=== PATIENT | male | born 1940 | race Caucasian/White ===

== ENCOUNTER 2023-04-17 23:45 | Outpatient (RCR) | payer MEDICARE, SELFPAY | END 2023-05-13 23:59 | disposition home or self-care (01) | LOC: MM 23:45 | PROVIDERS: PCP Nurse Practitioner; Visit Provider Internal Medicine | DX: Z51.81 Encounter for therapeutic drug level monitoring (principal); Z79.01 Long term (current) use of anticoagulants; I48.91 Unspecified atrial fibrillation ==

== ENCOUNTER 2023-05-19 10:54 | Outpatient (RCR) | payer MEDICARE, SELFPAY | END 2023-06-13 16:57 | disposition home or self-care (01) | LOC: MM 10:54 | PROVIDERS: PCP Internal Medicine; Visit Provider Internal Medicine | DX: Z51.81 Encounter for therapeutic drug level monitoring (principal); Z79.01 Long term (current) use of anticoagulants; I48.91 Unspecified atrial fibrillation ==

== ENCOUNTER 2023-06-14 09:18 | Outpatient (RCR) | payer MEDICARE, SELFPAY | END 2023-07-14 17:32 | disposition home or self-care (01) | LOC: MM 09:18 | PROVIDERS: Visit Provider Internal Medicine | DX: Z51.81 Encounter for therapeutic drug level monitoring (principal); Z79.01 Long term (current) use of anticoagulants; I48.91 Unspecified atrial fibrillation ==

== ENCOUNTER 2023-07-15 10:19 | Outpatient (RCR) | payer MEDICARE, SELFPAY | END 2023-08-12 16:50 | disposition home or self-care (01) | LOC: MM 10:19 | PROVIDERS: Visit Provider Internal Medicine | DX: Z51.81 Encounter for therapeutic drug level monitoring (principal); Z79.01 Long term (current) use of anticoagulants; I48.91 Unspecified atrial fibrillation ==

== ENCOUNTER 2023-07-28 16:50 | Outpatient (OUT) | payer MEDICARE, SELFPAY ==
[2023-07-28 17:10] LABS: Basophils Percent Auto 0.6 % (0.2-2.0); Eosinophils Absolute Auto 0.3 10^3/uL (0.0-0.7); Eosinophils Percent Auto 3.7 % (0.9-7.0); Hematocrit 45.1 % (42.0-54.0); Hemoglobin 14.2 g/dL (14.0-18.0); Immature Granulocytes Abs Auto 0.03 10^3/uL (0.00-0.03); Immature Granulocytes Pct Auto 0.4 % (0.0-0.5); Lymphocytes Absolute Auto 2.2 10^3/uL (1.2-3.8); Mean Corpuscular HGB Conc 31.5 g/dL (29.9-35.2); Mean Corpuscular Hemoglobin 28.9 pg (25.9-34.0); Mean Corpuscular Volume 91.9 fL (80.0-94.0); Mean Platelet Volume 8.4 fL (9.5-13.5); Monocytes Absolute Auto 0.7 10^3/uL (0.3-0.8); Monocytes Percent Auto 9.6 % (1.7-12.0); Neutrophils Percent Auto 54.7 % (43.0-75.0); Platelet Count 272 10^3/uL (150-450); Red Blood Count 4.91 10^6/uL (4.70-6.10); White Blood Count 7.2 10^3/uL (4.0-11.0)
[2023-07-28 17:23] LABS: Estimated Average Glucose 174 mg/dL; Glycohemoglobin A1C 7.7 % (4.5-6.2)
[2023-07-28 17:24] LABS: Alanine Aminotransferase 21 U/L (16-63); Albumin Globulin Ratio 0.7; Albumin Level 3.4 g/dL (3.4-5.0); Alkaline Phosphatase 97 U/L (46-116); Anion Gap 12.6; Aspartate Amino Transferase 16 U/L (15-37); BUN Creatinine Ratio 18.1; Bilirubin Total 0.3 mg/dL (0.2-1.0); Calcium 9.7 mg/dL (8.5-10.1); Carbon Dioxide 27.8 mmol/L (21.0-32.0); Chloride 99 mmol/L (98-107); Chol HDL Ratio 4.4; Cholesterol 248 mg/dL (<=200); Estimated GFR (African America 52 (>=60); Estimated GFR (Non-African Ame 43 (>=60); Glucose 166 mg/dL (74-106); HDL Cholesterol 57 mg/dL (40-60); Potassium 4.4 mmol/L (3.5-5.1); Sodium 135 mmol/L (136-145); Total Protein 8.4 g/dL (6.4-8.2); Triglycerides 260 mg/dL (<=150)
[2023-07-28 18:28] LABS: Bilirubin Urine NEGATIVE (NEGATIVE); Blood Urine SMALL (NEGATIVE); Clarity Urine CLEAR (CLEAR); Color Urine LT. YELLOW (YELLOW); Glucose Urine UA >=1000 mg/dL (NEGATIVE); Ketones Urine NEGATIVE (NEGATIVE); Leukocyte Esterase Urine MODERATE (NEGATIVE); Nitrite Urine NEGATIVE (NEGATIVE); Protein Urine NEGATIVE (NEG/TRACE); Urobilinogen Urine 0.2 EU/dL (0.2-1.0); pH Urine 7.5 (5.0-9.0)
[2023-07-28 18:36] LABS: Microalbumin Urine Random 2.2 mg/dL (<=30.0)
[2023-07-28 18:39] LABS: Bacteria Urine SMALL #/HPF (NONE SEEN); Mucus Urine NONE SEEN (NONE SEEN); Squamous Epithelial Cell Urine NONE SEEN #/LPF (NONE/RARE)
[2023-07-28 18:40] LABS: Cast Seen? NONE SEEN #/LPF (NONE SEEN); Crystals Seen? None Seen #/HPF (None Seen)
== END 2023-07-28 16:51 | disposition home or self-care (01) ==
PROVIDERS: Visit Provider Nurse Practitioner
DX: D64.9 Anemia, unspecified (principal); I10 Essential (primary) hypertension; E11.65 Type 2 diabetes mellitus with hyperglycemia
CPT/HCPCS: 36415; 80053; 80061; 81001; 82043; 83036; 85025

== ENCOUNTER 2023-08-15 01:50 | Outpatient (RCR) | payer MEDICARE, SELFPAY | END 2023-09-13 17:23 | disposition home or self-care (01) | LOC: MM 01:50 | PROVIDERS: Visit Provider Internal Medicine | DX: Z51.81 Encounter for therapeutic drug level monitoring (principal); Z79.01 Long term (current) use of anticoagulants; I48.91 Unspecified atrial fibrillation ==

== ENCOUNTER 2023-08-23 15:39 | Outpatient (OUT) | payer MEDICARE, SELFPAY ==
--- NOTE | 2023-08-23 | XR_ITS ---
The [address] [address] Patient Name: CATERINA FINK MRN: [id number] date: 1940 Sex: M Assigned Patient Location: [facility] Current Patient Location: RAD Accession/Order Number: [id number] Exam Date: 08/23/2023 15:15 Report Date: 08/23/2023 15:58 At the request of: CONCEPCION RIVERA Procedure: XR ankle LT min 3V STUDY: XR ankle LT min 3V, XR foot LT min 3V, [id number], [id number] HISTORY: LEFT ANKLE INJURY COMPARISON: None FINDINGS: No acute fracture or dislocation. Chronic appearing curvilinear calcification along the medial malleolus. Moderate soft tissue swelling over the dorsum of the foot. Extensive vascular calcifications are present. Diffuse heterogeneity of the foot and ankle. XR/XR ankle LT min 3V IMPRESSION: 1. No acute osseous abnormality. 2. Osseous heterogeneity of the bones of the foot and ankle. Differential includes renal osteodystrophy, disuse osteopenia, multiple myeloma, and metastatic disease. Correlate with patient history. Electronically authenticated by: DINORAH ECHOLS Date: 08/23/2023 15:58
--- NOTE | 2023-08-23 | XR_ITS ---
The [address] [address] Patient Name: CATERINA FINK MRN: [id number] date: 1940 Sex: M Assigned Patient Location: [facility] Current Patient Location: RAD Accession/Order Number: [id number] Exam Date: 08/23/2023 15:15 Report Date: 08/23/2023 15:58 At the request of: CONCEPCION RIVERA Procedure: XR foot LT min 3V STUDY: XR ankle LT min 3V, XR foot LT min 3V, [id number], [id number] HISTORY: LEFT ANKLE INJURY COMPARISON: None FINDINGS: No acute fracture or dislocation. Chronic appearing curvilinear calcification along the medial malleolus. Moderate soft tissue swelling over the dorsum of the foot. Extensive vascular calcifications are present. Diffuse heterogeneity of the foot and ankle. XR/XR foot LT min 3V IMPRESSION: 1. No acute osseous abnormality. 2. Osseous heterogeneity of the bones of the foot and ankle. Differential includes renal osteodystrophy, disuse osteopenia, multiple myeloma, and metastatic disease. Correlate with patient history. Electronically authenticated by: DINORAH ECHOLS Date: 08/23/2023 15:58
== END 2023-08-23 15:40 | disposition home or self-care (01) ==
LOC: RAD 15:39
PROVIDERS: Visit Provider Physician Assistant
DX: M79.672 Pain in left foot (principal); S99.912A Unspecified injury of left ankle, initial encounter
CPT/HCPCS: 73610; 73630

== ENCOUNTER 2023-09-14 00:39 | Outpatient (RCR) | payer MEDICARE, SELFPAY | END 2023-10-13 16:40 | disposition home or self-care (01) | LOC: MM 00:39 | PROVIDERS: Visit Provider Internal Medicine | DX: Z51.81 Encounter for therapeutic drug level monitoring (principal); Z79.01 Long term (current) use of anticoagulants; I48.91 Unspecified atrial fibrillation ==

== ENCOUNTER 2023-09-15 14:07 | Outpatient (OUT) | payer MEDICARE, SELFPAY ==
--- NOTE | 2023-09-15 | XR_ITS ---
The [address] [address] Patient Name: CATERINA FINK MRN: [id number] date: 1940 Sex: M Assigned Patient Location: Current Patient Location: Accession/Order Number: [id number] Exam Date: 09/15/2023 14:39 Report Date: 09/16/2023 07:55 At the request of: CONCEPCION RIVERA Procedure: XR foot LT min 3V PROCEDURE: XR ankle LT min 3V, XR foot LT min 3V COMPARISON: 08/23/2023 HISTORY: LEFT ANKLE PAIN FINDINGS: BONES:No acute fracture or dislocation. Diffuse permeative pattern identified throughout the ankle with subchondral lytic changes cortical thinning and osteopenia stable mild to moderate degenerative changes most significant at the first metatarsal-phalangeal joint SOFT TISSUES:Diffuse soft tissue swelling. Extensive vascular calcifications EFFUSION:None visible. OTHER: Negative. XR/XR foot LT min 3V IMPRESSION: Progression of diffuse lytic changes, consider osteopenia and/or neuropathic osteoarthropathy Electronically authenticated by: FLORIDALMA WRIGHT Date: 09/16/2023 07:55
--- NOTE | 2023-09-15 | XR_ITS ---
The [address] [address] Patient Name: CATERINA FINK MRN: [id number] date: 1940 Sex: M Assigned Patient Location: Current Patient Location: Accession/Order Number: [id number] Exam Date: 09/15/2023 14:39 Report Date: 09/16/2023 07:55 At the request of: CONCEPCION RIVERA Procedure: XR ankle LT min 3V PROCEDURE: XR ankle LT min 3V, XR foot LT min 3V COMPARISON: 08/23/2023 HISTORY: LEFT ANKLE PAIN FINDINGS: BONES:No acute fracture or dislocation. Diffuse permeative pattern identified throughout the ankle with subchondral lytic changes cortical thinning and osteopenia stable mild to moderate degenerative changes most significant at the first metatarsal-phalangeal joint SOFT TISSUES:Diffuse soft tissue swelling. Extensive vascular calcifications EFFUSION:None visible. OTHER: Negative. XR/XR ankle LT min 3V IMPRESSION: Progression of diffuse lytic changes, consider osteopenia and/or neuropathic osteoarthropathy Electronically authenticated by: FLORIDALMA WRIGHT Date: 09/16/2023 07:55
== END 2023-09-15 14:08 | disposition home or self-care (01) ==
LOC: WC 14:07
PROVIDERS: Visit Provider Physician Assistant
DX: M14.672 Charcot's joint, left ankle and foot (principal)
CPT/HCPCS: 73610; 73630

== ENCOUNTER 2023-09-20 13:24 | Outpatient (OUT) | payer MEDICARE, SELFPAY ==
--- NOTE | 2023-09-20 13:28 | CT_ITS ---
The [address] [address] Patient Name: CATERINA FINK MRN: [id number] date: 1940 Sex: M Assigned Patient Location: CT Current Patient Location: CT Accession/Order Number: [id number] Exam Date: 09/20/2023 13:37 Report Date: 09/20/2023 14:49 At the request of: CONCEPCION RIVERA Procedure: CT ankle LT wo con EXAMINATION: CT ankle LT wo con HISTORY: Medial Malleolus Fracture COMPARISON: Plain x-ray 09/15/2023 TECHNIQUE: Triplanar images FINDINGS: BONES: Transverse fracture of the lateral malleolus, minimally displaced with no angulation. No evidence of bone formation or bony bridging. No additional fracture or dislocation. Extensive permeative pattern of the bones consistent with osteopenia. SOFT TISSUES: Stents of soft tissue swelling. Vascular calcifications. EFFUSION: None visible. OTHER: Negative. CT/CT ankle LT wo con IMPRESSION: Acute transverse fracture lateral malleolus Electronically authenticated by: FLORIDALMA WRIGHT Date: 09/20/2023 14:49
== END 2023-09-20 13:25 | disposition home or self-care (01) ==
LOC: CT 13:24
PROVIDERS: Visit Provider Physician Assistant
DX: S82.52XA Displaced fracture of medial malleolus of left tibia, initial encounter for closed fracture (principal)
CPT/HCPCS: 73700

== ENCOUNTER 2023-10-13 14:59 | Outpatient (OUT) | payer MEDICARE, SELFPAY ==
--- NOTE | 2023-10-13 | XR_ITS ---
The [address] [address] Patient Name: CATERINA FINK MRN: [id number] date: 1940 Sex: M Assigned Patient Location: [facility] Current Patient Location: [facility] Accession/Order Number: [id number] Exam Date: 10/13/2023 15:30 Report Date: 10/14/2023 08:36 At the request of: CONCEPCION RIVERA Procedure: XR ankle LT min 3V CLINICAL HISTORY: LEFT ANKLE PAIN. EXAMINATION: Left ankle: 10/13/2023. COMPARISON: Left ankle: 09/15/2023. FINDINGS: 3 views are provided which demonstrate the ankle mortise is normally aligned. There are no acute fractures or dislocations. Base of the fifth metatarsal appears intact however there are cystic-appearing lucencies involving the distal tibia, fibula, as well as talus and multiple other tarsal bones. There is no osteolysis. There is some soft tissue swelling. No abnormal calcifications or radiopaque foreign bodies are seen. There is no soft tissue gas. There are vascular calcifications. XR/XR ankle LT min 3V IMPRESSION: 1. No definite fractures or dislocations. 2. Soft tissue swelling but no soft tissue gas. 3. No osteolysis to suggest plain film evidence of osteomyelitis however there are cystic lesions involving the distal tibia, fibula, and multiple tarsal, at least proximal metatarsal bones probably due to underlying neuropathy or degenerative changes. If patient's symptoms persist and there is clinical concern for underlying infectious pathology further evaluation with MRI might be of value. Electronically authenticated by: ART ACEVEDO Date: 10/14/2023 08:36
== END 2023-10-13 15:00 | disposition home or self-care (01) ==
LOC: RAD 14:59
PROVIDERS: Visit Provider Physician Assistant
DX: S82.892A Other fracture of left lower leg, initial encounter for closed fracture (principal)
CPT/HCPCS: 73610

== ENCOUNTER 2023-10-14 09:53 | Outpatient (RCR) | payer MEDICARE, SELFPAY | END 2023-11-11 15:39 | disposition home or self-care (01) | LOC: MM 09:53 | PROVIDERS: Visit Provider Internal Medicine | DX: Z51.81 Encounter for therapeutic drug level monitoring (principal); Z79.01 Long term (current) use of anticoagulants; I48.91 Unspecified atrial fibrillation ==

== ENCOUNTER 2023-11-02 16:11 | Outpatient (OUT) | payer MEDICARE, SELFPAY ==
--- NOTE | 2023-11-02 | XR_ITS ---
The [address] [address] Patient Name: CATERINA FINK MRN: [id number] date: 1940 Sex: M Assigned Patient Location: [facility] Current Patient Location: [facility] Accession/Order Number: [id number] Exam Date: 11/02/2023 15:15 Report Date: 11/02/2023 16:06 At the request of: ANGELY DAWN Procedure: XR ankle LT min 3V IMAGES REVIEWED: XR ankle LT min 3V COMPARISON: 09/20/2023, 10/13/2023. CLINICAL INDICATION: LEFT ANKLE PAIN FINDINGS/IMPRESSION: On the prior CT left ankle from 09/20/2023 there was an acute transverse fracture of the lateral malleolus of the left ankle. Subacute nondisplaced obliquely oriented fracture line can be seen on prior oblique view from 10/13/2023. Less conspicuous on today's exam suggesting interval healing. No radiographic evidence of new acute osseous abnormality of the left ankle. Patient is severely osteopenic (possibly explaining the cystic lesions noted on the prior x-ray left ankle report from 10/13/2023). No evidence of osteomyelitis. No evidence of significant neuropathic or degenerative change. Moderate diffuse soft tissue swelling. Peripheral arterial disease. Electronically authenticated by: THERESA ADAMSON Date: 11/02/2023 16:06
--- OUTSIDE RECORDS SUMMARY | 2023-11-03 10:08 | XMS_ITS | CCD ---
Author Name Unknown Address [address] [place] [address] Organization [facility] Care Team Providers Care Restaurant District Manager Name Role Phone BENEDICT KENNEYA Jono Referring Unavailable AICHHOLZ, ROSCOE JDejuan Referring Unavailable AICHHOLZ, ARCHIVIST ROSCOE Primary Care Unavailable FAWWAD, ROGERS H Attending Unavailable FAWWAD, ROGERS H Admitting Unavailable AICHHOLZ, ARCHIVIST ROSCOE Primary Care Unavailable FAWWAD, ROGERS H Attending Unavailable FAWWAD, ROGERS H Admitting Unavailable AICHHOLZ, ARCHIVIST ROSCOE Primary Care Unavailable FAWWAD, ROGERS H Attending Unavailable FAWWAD, ROGERS H Admitting Unavailable AICHHOLZ, ARCHIVIST ROSCOE Primary Care Unavailable AICHHOLZ, ARCHIVIST ROSCOE Admitting Unavailable AICHHOLZ, ARCHIVIST ROSCOE Attending Unavailable AICHHOLZ, ARCHIVIST ROSCOE Primary Care Unavailable NADEREDR NAOMI Kerr Consulting Unavailable NADERER, DR NAOMI Stafford Attending Unavailable DR NAOMI DOSDON Admitting Unavailable AICHHOLZ, ARCHIVIST ROSCOE Primary Care Unavailable AICHHOLZ, ARCHIVIST ROSCOE Admitting Unavailable AICHHOLZ, ARCHIVIST ROSCOE Consulting Unavailable AICHHOLZ, ARCHIVIST ROSCOE Attending Unavailable AICHHOLZ, ARCHIVIST ROSCOE Primary Care Unavailable FAWWAD, ROGERS H Attending Unavailable FAWWAD, ROGERS H Admitting Unavailable AICHHOLZ, ARCHIVIST ROSCOE Primary Care Unavailable FAWWAD, ROGERS H Attending Unavailable FAWWAD, ROGERS H Admitting Unavailable AICHHOLZ, ARCHIVIST ROSCOE Primary Care Unavailable FAWWAD, ROGERS H Attending Unavailable FAWWAD, ROGERS H Admitting Unavailable FAWWAD, ROGERS H Attending Unavailable AICHHOLZ, ARCHIVIST ROSCOE Primary Care Unavailable FAWWAD, ROGERS H Admitting Unavailable AICHHOLZ, ARCHIVIST ROSCOE Primary Care Unavailable FAWWAD, ROGERS H Attending Unavailable FAWWAD, ROGERS H Admitting Unavailable AICHHOLZ, ARCHIVIST ROSCOE Primary Care Unavailable FAWWAD, ROGERS H Attending Unavailable FAWWAD, ROGERS H Admitting Unavailable FAWWAD, ROGERS H Admitting Unavailable AICHHOLZ, ARCHIVIST ROSCOE Primary Care Unavailable FAWWAD, ROGERS H Attending Unavailable FAWWAD, ROGERS H Admitting Unavailable FAWWAD, ROGERS H Attending Unavailable AICHHOLZ, ARCHIVIST ROSCOE Primary Care Unavailable AICHHOLZ, ARCHIVIST ROSCOE Primary Care Unavailable BANDAR ., GENEVIEVE Consulting Unavailable BANDAR ., GENEVIEVE Attending Unavailable BANDAR ., GENEVIEVE Admitting Unavailable GABRIELLA PULIDO Consulting Unavailable AICHHOLZ, ARCHIVIST ROSCOE Primary Care Unavailable AICHHOLZ, ARCHIVIST ROSCOE Consulting Unavailable AICHHOLZ, ARCHIVIST ROSCOE Attending Unavailable AICHHOLZ, ARCHIVIST ROSCOE Admitting Unavailable AICHHOLZ, ARCHIVIST ROSCOE Primary Care Unavailable AICHHOLZ, ARCHIVIST ROSCOE Consulting Unavailable AICHHOLZ, ARCHIVIST ROSCOE Attending Unavailable AICHHOLZ, ARCHIVIST ROSCOE Admitting Unavailable Problems Active Problems Problem Classification Problem Date Documented Date Episodic/Chronic Cardiac dysrhythmias (9 sources) Paroxysmal atrial fibrillation; Translations: [Unspecified atrial fibrillation] Onset: 2 Chronic Diabetes mellitus without complication (4 sources) Type 2 diabetes mellitus without complications; Translations: [TYPE 2 DM WITHOUT COMPLICATIONS] Onset: 3 Chronic Disorders of lipid metabolism (1 source) Pure hypercholesterolemia, unspecified; Translations: [PURE HYPERCHOLESTEROLEMIA UNSPEC] Onset: 3 Chronic Esophageal disorders (1 source) Gastro-esophageal reflux disease without esophagitis; Translations: [GERD WITHOUT ESOPHAGITIS] Onset: 3 Chronic Essential hypertension (1 source) Essential (primary) hypertension; Translations: [ESSENTIAL PRIMARY HYPERTENSION] Onset: 3 Chronic Genitourinary symptoms and ill-defined conditions (4 sources) Encounter for fitting and adjustment of urinary device; Translations: [END FITTING AND ADJUST URINARY DEVICE] Onset: 3 Chronic Hyperplasia of prostate (1 source) Benign prostatic hyperplasia without lower urinary tract symptoms; Translations: [BENIGN PROSTATIC HYPRPLASIA WO LUTS] Onset: 3 Chronic Other aftercare (5 sources) Encounter for therapeutic drug level monitoring; Translations: [ENC THERAPEUTC DRUG LEVL MONITORING] Onset: 3 Episodic Other aftercare (1 source) snf (current) use of anticoagulants; Translations: [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 USE ANTICOAGULANTS] Onset: 3 Episodic Past or Other Problems Problem Classification Problem Date Documented Da te Episodic/Chronic Other aftercare (1 source) Other emt intermediate (current) drug therapy; Translations: [OTH ASSISTED CURRENT DRUG THERAPY] Onset: 12-06-2022 Episodic Other aftercare (1 source) snf (current) use of oral hypoglycemic drugs; Translations: [ASSISTED USE ORAL HYPOGLYCEMIC DX] Onset: 12-06-2022 Episodic Other lower respiratory disease (1 source) Personal history of pneumonia (recurrent); Translations: [PERSONAL HX OF PNEUMONIA RECURRENT] Onset: 12-06-2022 Episodic Phlebitis; thrombophlebitis and thromboembolism (1 source) Personal history of other venous thrombosis and embolism; Translations: [PERS HX OTH VENOUS THROMBOSIS AND EMBO] Onset: 12-06-2022 Episodic Urinary tract infections (4 sources) Urinary tract infection, site not specified; Translations: [UTI SITE NOT SPECIFIED] Onset: 06-10-2022 Episodic Results Test Name Value Interpretation Reference Range Facil ity GLYCOHEMOGLOBIN A1Con 2022 ADA RECOMMENDATION SEE BELOW Normal [facility] Comment on above: Result Comment: ADA RECOMMENDED LIMIT 4.0 - 6.0 ADA THERAPEUTIC TARGET < 7.0 ACTION SUGGESTED > 7.0 Performed By: #### A 1C #### [facility] [address] [place] [address] Dr. Javi Flynn Glucose [Mass/Vol] 275 mg/dL Normal [facility] Comment on above: Performed By: #### A 1C #### [facility] [address] [place] [address] Dr. Javi Flynn HbA1c (Bld) [Mass fraction] 11.2 % Critically high 4.5-6.2 [facility] Comment on above: Performed By: #### A 1C #### [facility] [address] [place] [address] Dr. Javi Flynn PROF CHEM 8 (BAS METB)on Anion gap [Moles/Vol] 13.8 mmol/L Normal [facility] Comment on above: Performed By: #### B MP #### [facility] [address] [address] [address] Javi Flynn Calcium [Mass/Vol] 8.8 mg/dL Normal 8.5-10.1 [facility] Comment on above: Performed By: #### B MP #### [facility] [address] [address] [address] Javi Flynn Chloride [Moles/Vol] 102 mmol/L Normal 98-107 [facility] Comment on above: Performed By: #### B MP #### [facility] [address] [address] [address] Javi Flynn CO2 [Moles/Vol] 26.6 mmol/L Normal 21.0-32.0 [facility] Comment on above: Performed By: #### B MP #### [facility] [address] [address] [address] Javi Flynn Creatinine [Mass/Vol] 1.50 mg/dL Critically high 0.70-1.30 [facility] Comment on above: Performed By: #### B MP #### [facility] [address] [address] [address] Javi Flynn EGFR-AF CZECH 54 mL/min/1.73m2 Critically low >=60 [facility] Comment on above: Performed By: #### B MP #### [facility] [address] [address] [address] Javi Flynn EGFR-NON AF CZECH 45 mL/min/1.73m2 Critically low >=60 [facility] Comment on above: Performed By: #### B MP #### [facility] [address] [address] [address] Javi Flynn Glucose [Mass/Vol] 349 mg/dL Critically high 74-106 [facility] Comment on above: Performed By: #### B MP #### [facility] [address] [address] [address] Javi Flynn Potassium [Moles/Vol] 4.4 mmol/L Normal 3.5-5.1 [facility] Comment on above: Performed By: #### B MP #### [facility] [address] [address] [address] Javi Flynn Sodium [Moles/Vol] 138 mmol/L Normal 136-145 [facility] Comment on above: Performed By: #### B MP #### [facility] [address] [address] [address] Javi Flynn Urea nitrogen [Mass/Vol] 22.0 mg/dL Critically high 7.0-18.0 [facility] Comment on above: Performed By: #### B MP #### [facility] [address] [place] [address] Dr. Javi Flynn Urea nitrogen/Creatinine [Mass ratio] 14.7 mg/mg Normal [facility] Comment on above: Performed By: #### B MP #### [facility] [address] [place] [address] Dr. Javi Flynn PROTIMEon 03-02-2023 INR Coag (PPP) [Relative time] 2.94 {INR} Normal [facility] Comment on above: Performed By: #### P T #### [facility] [address] [place] [address] Dr. Javi Flynn INR GUIDELINES SEE BELOW Normal The [facility] Comment on above: Result Comment: EDDIE RED INR: 2.0 - 3.0 CONDITIONS NOT LISTED BELOW 2.5 - 3.5 FOR PROSTHETIC HEART VALVE REPLACEMENT 2.5 - 3.5 RECURRENT THROMBOSIS Performed By: #### P T #### [facility] [address] [place] [address] Dr. Javi Flynn PT Coag (PPP) [Time] 29.3 s Critically high 9.0-11.6 [facility] Comment on above: Performed By: #### P T #### [facility] [address] [place] [address] Dr. Javi Flynn CBC AUTO DIFFon 09-20-2022 BASO # 0.1 103/ul Normal 0.0-0.1 [facility] Comment on above: Performed By: #### C BC #### [facility] [address] [address] [address] Javi Flynn Basophils/100 WBC (Bld) 0.8 % Normal 0.2-2.0 [facility] Comment on above: Performed By: #### C BC #### [facility] [address] [address] [address] Javi Flynn EO # 0.2 103/ul Normal 0.0-0.7 [facility] Comment on above: Performed By: #### C BC #### [facility] [address] [place] [address] Dr. Javi Flynn Eosinophils/100 WBC (Bld) 2.9 % Normal 0.9-7.0 [facility] Comment on above: Performed By: #### C BC #### [facility] [address] [place] [address] Dr. Javi Flynn Erythrocyte distribution width (RBC) [Ratio] 13.6 % Normal 11.0-15.0 [facility] Comment on above: Performed By: #### C BC #### [facility] [address] [place] [address] Dr. Javi Flynn Hematocrit (Bld) [Volume fraction] 40.0 % Critically low 42.0-54.0 [facility] Comment on above: Performed By: #### C BC #### [facility] [address] [place] [address] Dr. Javi Flynn Hemoglobin (Bld) [Mass/Vol] 13.1 g/dL Critically low 14.0-18.0 [facility] Comment on above: Performed By: #### C BC #### [facility] [address] [place] [address] Dr. Javi Flynn IG # 0.03 10e3/ul Normal 0.00-0.03 [facility] Comment on above: Performed By: #### C BC #### [facility] [address] [place] [address] Dr. Javi Flynn IG % 0.5 % Normal 0.0-0.5 [facility] Comment on above: Performed By: #### C BC #### [facility] [address] [place] [address] Dr. Javi Flynn LYMPH # 2.1 103/ul Normal 1.2-3.8 [facility] Comment on above: Performed By: #### C BC #### [facility] [address] [place] [address] Dr. Javi Flynn Lymphocytes/100 WBC (Bld) 32.0 % Normal 20.5-60.0 [facility] Comment on above: Performed By: #### C BC #### [facility] [address] [place] [address] Dr. Javi Flynn MANUAL DIFF REQ NO Normal [facility] Comment on above: Performed By: #### C BC #### [facility] [address] [place] [address] Dr. Javi Flynn MCH (RBC) [Entitic mass] 28.1 pg Normal 25.9-34.0 [facility] Comment on above: Performed By: #### C BC #### [facility] [address] [place] [address] Dr. Javi Flynn MCHC (RBC) [Mass/Vol] 32.8 g/dL Normal 29.9-35.2 [facility] Comment on above: Performed By: #### C BC #### [facility] [address] [place] [address] Dr. Javi Flynn MCV (RBC) [Entitic vol] 85.8 fL Normal 80.0-94.0 [facility] Comment on above: Performed By: #### C BC #### [facility] [address] [place] [address] Dr. Javi Flynn MONO # 0.6 103/ul Normal 0.3-0.8 [facility] Comment on above: Performed By: #### C BC #### [facility] [address] [place] [address] Dr. Javi Flynn Monocytes/100 WBC (Bld) 8.7 % Normal 1.7-12.0 [facility] Comment on above: Performed By: #### C BC #### [facility] [address] [address] [address] Javi Flynn NEUT # 3.7 103/ul Normal 1.4-6.5 [facility] Comment on above: Performed By: #### C BC #### [facility] [address] [address] [address] Javi Flynn Neutrophils/100 WBC (Bld) 55.1 % Normal 43.0-75.0 [facility] Comment on above: Performed By: #### C BC #### [facility] [address] [address] [address] Javi Flynn Platelet mean volume (Bld) [Entitic vol] 9.4 fL Critically low 9.5-13.5 [facility] Comment on above: Performed By: #### C BC #### [facility] [address] [place] [address] Dr. Javi Flynn PLT 268 103/ul Normal 150-450 [facility] Comment on above: Performed By: #### C BC #### [facility] [address] [place] [address] Dr. Javi Flynn RBC 4.66 106/ul Critically low 4.70-6.10 [facility] Comment on above: Performed By: #### C BC #### [facility] [address] [place] [address] Dr. Javi Flynn WBC 6.7 103/ul Normal 4.0-11.0 [facility] Comment on above: Performed By: #### C BC #### [facility] [address] [place] [address] Dr. Javi Flynn GLYCOHEMOGLOBIN A1Con 2021 ADA RECOMMENDATION SEE BELOW Normal [facility] Comment on above: Result Comment: ADA RECOMMENDED LIMIT 4.0 - 6.0 ADA THERAPEUTIC TARGET < 7.0 ACTION SUGGESTED > 7.0 Performed By: #### A 1C #### [facility] [address] [place] [address] Dr. Javi Flynn Glucose [Mass/Vol] 312 mg/dL Normal [facility] Comment on above: Performed By: #### A 1C #### [facility] [address] [address] [address] Javi Flynn HbA1c (Bld) [Mass fraction] 12.5 % Critically high 4.5-6.2 [facility] Comment on above: Performed By: #### A 1C #### [facility] [address] [place] [address] Dr. Javi Flynn PROF CHEM 8 (BAS METB)on Anion gap [Moles/Vol] 10.9 mmol/L Normal [facility] Comment on above: Performed By: #### B MP #### [facility] [address] [place] [address] Dr. Javi Flynn Calcium [Mass/Vol] 8.7 mg/dL Normal 8.5-10.1 [facility] Comment on above: Performed By: #### B MP #### [facility] [address] [place] [address] Dr. Javi Flynn Chloride [Moles/Vol] 98 mmol/L Normal 98-107 [facility] Comment on above: Performed By: #### B MP #### [facility] [address] [place] [address] Dr. Javi Flynn CO2 [Moles/Vol] 25.3 mmol/L Normal 21.0-32.0 [facility] Comment on above: Performed By: #### B MP #### [facility] [address] [place] [address] Dr. Javi Flynn Creatinine [Mass/Vol] 1.18 mg/dL Normal 0.70-1.30 [facility] Comment on above: Performed By: #### B MP #### [facility] [address] [place] [address] Dr. Javi Flynn EGFR-AF CZECH >60 Normal >=60 [facility] Comment on above: Performed By: #### B MP #### [facility] [address] [place] [address] Dr. Javi Flynn EGFR-NON AF CZECH 59 mL/min/1.73m2 Critically low >=60 [facility] Comment on above: Performed By: #### B MP #### [facility] [address] [address] [address] Javi Flynn Glucose [Mass/Vol] 256 mg/dL Critically high 74-106 [facility] Comment on above: Performed By: #### B MP #### [facility] [address] [address] [address] Javi Flynn Potassium [Moles/Vol] 4.2 mmol/L Normal 3.5-5.1 [facility] Comment on above: Performed By: #### B MP #### [facility] [address] [address] [address] Javi Flynn Sodium [Moles/Vol] 130 mmol/L Critically low 136-145 [facility] Comment on above: Performed By: #### B MP #### [facility] [address] [address] [address] Javi Flynn Urea nitrogen [Mass/Vol] 17.0 mg/dL Normal 7.0-18.0 [facility] Comment on above: Performed By: #### B MP #### [facility] [address] [address] [address] Javi Flynn Urea nitrogen/Creatinine [Mass ratio] 14.4 mg/mg Normal [facility] Comment on above: Performed By: #### B MP #### [facility] [address] [address] [address] Javi Flynn PROTIMEon 09-03-2022 INR Coag (PPP) [Relative time] 5.23 {INR} Critically high [facility] Comment on above: Performed By: #### P T #### [facility] [address] [address] [address] Javi Flynn INR GUIDELINES SEE BELOW Normal [facility] Comment on above: Result Comment: EDDIE RED INR: 2.0 - 3.0 CONDITIONS NOT LISTED BELOW 2.5 - 3.5 FOR PROSTHETIC HEART VALVE REPLACEMENT 2.5 - 3.5 RECURRENT THROMBOSIS Performed By: #### P T #### [facility] [address] [place] [address] Dr. Jaiv Flynn PT Coag (PPP) [Time] 50.7 s Critically high 9.0-11.6 [facility] Comment on above: Performed By: #### P T #### [facility] [address] [place] [address] Dr. Javi Flynn CULTURE URINEon 06-15-2022 CULTURE URINE Isolate 1 Proteus mirabilis 30,000 cfu/mL of Isolate 2 Staphylococcus aureus >100,000 cfu/mL of ORGANISM 1 Proteus mirabilis ANTIBIOTIC M.I.C RX STATUS Ampicillin <=2 S F Ampicillin/Sulbactam <=2 S F Piperacillin/Tazobac ovalle <=4 S F Cefazolin <=4 S F Ceftazidime <=1 S F Ceftriaxone <=1 S F Ertapenem <=0.5 S F Imipenem 1 S F Amikacin <=2 S F Gentamicin <=1 S F Tobramycin <=1 S F Ciprofloxacin <=0.25 S F Levofloxacin <=0.12 S F Nitrofurantoin 128 R F Trimethoprim/Sulfame thoxazole <=20 S F ORGANISM 2 Staphylococcus aureus ANTIBIOTIC M.I.C RX STATUS Beta-Lactamase Pos POS F Cefoxitin Screen Pos POS F Benzylpenicillin >=0.5 R F Ciprofloxacin >=8 R F Levofloxacin >=8 R F Moxifloxacin >=8 R F Inducible Clindamycin Resistance Neg NEG F Quinupristin/Dalfopr istin <=0.25 S F Linezolid 1 S F Vancomycin 1 S F Tetracycline <=1 S F Nitrofurantoin <=16 S F Rifampicin <=0.5 S F Trimethoprim/Sulfame thoxazole <=10 S F Oxacillin >=4 R F Normal [facility] Comment on above: Performed By: #### U RCX #### [facility] [address] [place] [address] Dr. Javi Flynn UA RANDOM W/MICROSCOPICon BACTERIA MODERATE Abnormal NONE SEEN [facility] Comment on above: Performed By: #### U AMIC #### [facility] [address] [place] [address] Dr. Javi Flynn Bilirubin Ql (U) Negative Normal NEGATIVE [facility] Comment on above: Performed By: #### U AMIC #### [facility] [address] [address] [address] Javi Flynn CAST NONE SEEN Normal NONE SEEN [facility] Comment on above: Performed By: #### U AMIC #### [facility] [address] [address] [address] Javi Flynn Clarity (U) CLEAR Normal CLEAR [facility] Comment on above: Performed By: #### U AMIC #### [facility] [address] [address] [address] Javi Flynn Color (U) BROWN Abnormal YELLOW [facility] Comment on above: Performed By: #### U AMIC #### [facility] [address] [place] [address] Dr. Javi Flynn Crystals LM Nom (Urine sed) NONE SEEN Normal NONE SEEN [facility] Comment on above: Performed By: #### U AMIC #### [facility] [address] [place] [address] Dr. Javi Flynn Epithelial cells LM Ql (Urine sed) RARE Normal NONE SEEN /RARE [facility] Comment on above: Performed By: #### U AMIC #### [facility] [address] [place] [address] Dr. Javi Flynn Glucose Ql (U) >1000 Abnormal NEGATIVE The [facility] Comment on above: Performed By: #### U AMIC #### [facility] [address] [place] [address] Dr. Javi Flynn Hemoglobin Ql (U) MODERATE Abnormal NEGATIVE [facility] Comment on above: Performed By: #### U AMIC #### [facility] [address] [place] [address] Dr. Javi Flynn Ketones Ql (U) Negative Normal NEGATIVE The [facility] Comment on above: Performed By: #### U AMIC #### [facility] [address] [place] [address] Dr. Javi Flynn LEUKOCYTES LARGE Abnormal NEGATIVE [facility] Comment on above: Performed By: #### U AMIC #### [facility] [address] [place] [address] Dr. Javi Flynn MUCOUS NONE SEEN Normal NONE SEEN [facility] Comment on above: Performed By: #### U AMIC #### [facility] [address] [address] [address] Javi Flynn Nitrite Ql (U) Negative Normal NEGATIVE The [facility] Comment on above: Performed By: #### U AMIC #### [facility] [address] [address] [address] Javi Flynn pH (U) 5.5 [pH] Normal 5-9 [facility] Comment on above: Performed By: #### U AMIC #### [facility] [address] [address] [address] Javi Flynn RBC 10-20 Abnormal 0-2 [facility] Comment on above: Performed By: #### U AMIC #### [facility] [address] [place] [address] Dr. Javi Flynn SPEC GRAVITY 1.010 Normal 1.005-<=1.025 [facility] Comment on above: Performed By: #### U AMIC #### [facility] [address] [address] [address] Javi Flynn UA PROTEIN Negative Normal NEGATIVE/ TRACE [facility] Comment on above: Performed By: #### U AMIC #### [facility] [address] [address] [address] Javi Flynn Urobilinogen Qn (U) 0.2 {Laurie'U}/dL Normal 0.2 - 1. 0 [facility] Comment on above: Performed By: #### U AMIC #### [facility] [address] [place] [address] Dr. Javi Flynn WBC (U) [#/Vol] /uL Abnormal NONE SEEN [facility] Comment on above: Performed By: #### U AMIC #### [facility] [address] [place] [address] Dr. Javi Flynn Hemoglobin A1Con 08-17-2020 HbA1c (Bld) [Mass fraction] 206 mg/dL Normal [facility] Comment on above: Result Comment: The ADA and AACC recommend providing the estimated average glucose result to permit better patient understanding of their HBA1c result. Performed By: #### B MP #### [address] [place] [address] Astro Technician: Chago Esposito MD #### GLYHGB #### [id number] [place], [place] [id number] Astro Technician: Rigo Luna MD HbA1c (Bld) [Mass fraction] 8.8 % High 4.0-6.0 [facility] Comment on above: Performed By: #### B MP #### [address] [place] [address] Astro Technician: Chago Esposito MD #### GLYHGB #### [address] [address] [place], [place] [id number] Astro Technician: Rigo Luna MD Basic Metabolic Profon 08-15 (cont.) Normal [facility] Comment on above: Result Comment: Aver age GFR for 70 or more years old: 75 mL/min/1.73sq m Chronic Kidney Disease: <60 mL/min/1.73sq m Kidney failure: <15 mL/min/1.73sq m eGFR calculated using average adult body mass. Additional eGFR calculator available at: http://www.[employer]/multiple_crcl_2012.htm Performed By: #### B MP #### [address] [place] [address] Astro Technician: Chago Esposito MD #### GLYHGB #### [address] [place], [place] [id number] Astro Technician: Rigo Luna MD Anion gap [Moles/Vol] 13 mmol/L Normal 9-17 [facility] Comment on above: Performed By: #### B MP #### [address] [place] [address] Astro Technician: Chago Esposito MD #### GLYHGB #### [facility] [address] [place] [address] Astro Technician: Rigo Luna MD BUN/CRE Ratio 18 Normal 9-20 [facility] Comment on above: Performed By: #### B MP #### [facility] [address] [place], [place] [id number] Astro Technician: Chago Esposito MD #### GLYHGB #### [address] [address] Astro Technician: Rigo Luna MD Calcium [Mass/Vol] 8.9 mg/dL Normal 8.6-10.4 [facility] Comment on above: Performed By: #### B MP #### [facility] [address] [place], [place] [id number] Astro Technician: Chago Esposito MD #### GLYHGB #### [facility] [address] [place] [address] Astro Technician: Rigo Luna MD Chloride [Moles/Vol] 96 mmol/L Low 98-107 [facility] Comment on above: Performed By: #### B MP #### [facility] [address] [place] [address] Astro Technician: Chago Esposito MD #### GLYHGB #### [facility] [address] [place] [address] Astro Technician: Rigo Luna MD CO2 [Moles/Vol] 23 mmol/L Normal 20-31 [facility] Comment on above: Performed By: #### B MP #### [facility] [address] [place] [address] Astro Technician: Chago Esposito MD #### GLYHGB #### [facility] [address] [place] [address] Astro Technician: Rigo Luna MD Creatinine [Mass/Vol] 1.04 mg/dL Normal 0.70-1.20 [facility] Comment on above: Performed By: #### B MP #### [facility] [address] [place], [place] [id number] Astro Technician: Chago Esposito MD #### GLYHGB #### [address] [address] Astro Technician: Rigo Luna MD GFR, Amer >60 Normal >60 [facility] Comment on above: Performed By: #### B MP #### [facility] [address] [place], [place] [address] Astro Technician: Chago Esposito MD #### GLYHGB #### [address] [address] Astro Technician: Rigo Luna MD GFR,non Amer >60 Normal >60 [facility] Comment on above: Performed By: #### B MP #### [facility] [address] [place], [place] [phone] Astro Technician: Chago Esposito MD #### GLYHGB #### [address] [address] Astro Technician: Rigo Luna MD Glucose [Mass/Vol] 249 mg/dL High 70-99 [facility] Comment on above: Performed By: #### B MP #### [facility] [address] [place] [address] Astro Technician: Chago Esposito MD #### GLYHGB #### [address] [address] Astro Technician: Rigo Luna MD Potassium [Moles/Vol] 4.1 mmol/L Normal 3.7-5.3 [facility] Comment on above: Performed By: #### B MP #### [facility] [address] [place], [place] [id number] Astro Technician: Chago Esposito MD #### GLYHGB #### [address] [place], [place] [phone] Astro Technician: Rigo Luna MD Sodium [Moles/Vol] 132 mmol/L Low 135-144 [facility] Comment on above: Performed By: #### B MP #### [facility] [address] [place], [place] [phone] Astro Technician: Chago Esposito MD #### GLYHGB #### [address] [phone] Astro Technician: Rigo Luna MD Staging: Normal [facility] Comment on above: Result Comment: Stag e 1: Some kidney damage normal GFR Stage 2: Mild kidney damage GFR 60-89 Stage 3: Moderate kidney damage GFR 30-59 Stage 4: Severe kidney damage GFR 15-29 Stage 5: Severe kidney damage GFR <15 ESRD - chronic treatment by dialysis or transplant Performed By: #### B MP #### [address] [place], [place] [address] Astro Technician: Chago Esposito MD #### GLYHGB #### [address] [address] Astro Technician: Rigo Luna MD Urea nitrogen [Mass/Vol] 19 mg/dL Normal 8-23 [facility] Comment on above: Performed By: #### B MP #### [address] [place], [place] [id number] Astro Technician: Chago Esposito MD #### GLYHGB #### [address] [address] Astro Technician: Rigo Luna MD Cult,Urineon 10-24-2019 Cult,Urine Specimen Description .VOIDED URINE Special Requests NOT REPORTED Culture Several types of bacteria were identified in this specimen. Further ID and susceptibility testing is generally not helpful in this circumstance and has not been performed. Consider recollection if clinically indicated. Please contact the Micro lab ([phone]) if you feel the management ofthis particular situation would be helped by further testing. Report Status FINAL 10/24/2019 Normal [facility] Comment on above: Performed By: #### U RC #### [address] [address] Astro Technician: Rigo Luna MD [facility] [address] [place] [address] Astro Technician: Chago Esposito MD Urinalysis, Routineon 2018 Acetoacetic Acid,Ur Negative Normal NEG [facility] Comment on above: Performed By: #### U A, UMICAO #### [address] [address] Astro Technician: Rigo Luna MD Bilirubin, SemiQt,Ur Negative Normal NEG [facility] Comment on above: Performed By: #### U A, UMICAO #### [facility] [address] [place] [address] Astro Technician: Rigo Luna MD Color (U) YELLOW Normal YEL [facility] Comment on above: Performed By: #### U A, UMICAO #### [facility] [address] [place] [address] Astro Technician: Rigo Luna MD Glucose Ql (U) Negative Normal NEG [facility] Comment on above: Performed By: #### U A, UMICAO #### [facility] [place] [address] Astro Technician: Rigo Luna MD Hemoglobin, Ur Negative Normal NEG [facility] Comment on above: Performed By: #### U A, UMICAO #### [facility] [address] [place] [address] Astro Technician: Rigo Luna MD Leukocyte esterase Test strip Ql (U) MODERATE Abnormal NEG [facility] Comment on above: Performed By: #### U A, UMICAO #### [address] [address] Astro Technician: Rigo Luna MD Nitrite,Ur Negative Normal NEG [facility] Comment on above: Performed By: #### U A, UMICAO #### [address] [address] Astro Technician: Rigo Luna MD pH (U) 5.5 [pH] Normal 5.0-8.0 [facility] Comment on above: Performed By: #### U A, UMICAO #### [address] [address] Astro Technician: Rigo Luna MD Protein Ql (U) Negative Normal NEG [facility] Comment on above: Performed By: #### U A, UMICAO #### [address] [address] Astro Technician: Rigo Luna MD Specific gravity (U) [Rel density] 1.013 Normal 1.005-1.030 [facility] Comment on above: Performed By: #### U A, UMICAO #### [address] [address] Astro Technician: Rigo Luna MD Turbidity CLEAR Normal CLEAR [facility] Comment on above: Performed By: #### U A, UMICAO #### [address] [address] Astro Technician: Rigo Luna MD Urobilinogen,Ur Normal Normal NORM [facility] Comment on above: Performed By: #### U A, UMICAO #### [address] [address] Astro Technician: Rigo Luna MD Urinalysis,Microon 9 ----- Normal [facility] Comment on above: Performed By: #### U A, UMICAO #### [facility] [address] [place] [address] Astro Technician: Rigo Luna MD Epithelial cells LM.HPF (Urine sed) [#/Area] 2 TO 5 Normal 0-5 [facility] Comment on above: Performed By: #### U A, UMICAO #### [facility] [address] [place] [address] Astro Technician: Rigo Luna MD RBC (U) [#/Vol] 0 TO 2 Normal 0-4 [facility] Comment on above: Result Comment: Refe rence range defined for non-centrifuged specimen. Performed By: #### U A, UMICAO #### [address] [address] Astro Technician: Rigo Luna MD WBC (U) [#/Vol] 10 TO 20 Normal 0-5 [facility] Comment on above: Performed By: #### U A, UMICAO #### [address] [address] Astro Technician: Rigo Luna MD Urinalysis, Routineon 2018 Comment NOT REPORTED Normal [facility] Comment on above: Performed By: #### U A, UMICAO #### [address] [address] Astro Technician: Rigo Luna MD Urinalysis,Microon 9 Amorphous sediment LM Ql (Urine sed) NOT REPORTED Normal [facility] Comment on above: Performed By: #### U A, UMICAO #### [facility] [address] [place] [address] Astro Technician: Rigo Luna MD Bacteria LM.HPF (Urine sed) [#/Area] NOT REPORTED Normal [facility] Comment on above: Performed By: #### U A, UMICAO #### [facility] [address] [place], [place] [address], [place] [address] Astro Technician: Rigo Luna MD Casts LM.LPF (Urine sed) [#/Area] NOT REPORTED Normal 0-8 [facility] Comment on above: Performed By: #### U A, UMICAO #### [facility] [address] [place] [address] Astro Technician: Rigo Luna MD Crystals LM Nom (Urine sed) NOT REPORTED Normal NONE [facility] Comment on above: Performed By: #### U A, UMICAO #### [facility] [address] [place] [address] Astro Technician: Rigo Luna MD Epithelial, Renal NOT REPORTED Normal 0 [facility] Comment on above: Performed By: #### U A, UMICAO #### [facility] [address] [place] [address] Astro Technician: Rigo Luna MD Mucus Strands NOT REPORTED Normal [facility] Comment on above: Performed By: #### U A, UMICAO #### [facility] [address] [place] [address] Astro Technician: Rigo Luna MD Other Observations NOT REPORTED Normal NREQ [facility] Comment on above: Performed By: #### U A, UMICAO #### [facility] [address] [place] [address] Astro Technician: Rigo Luna MD Trichomonas NOT REPORTED Normal NONE [facility] Comment on above: Performed By: #### U A, UMICAO #### [facility] [address] [place] [address] Astro Technician: Rigo Luna MD Yeast LM Ql (Urine sed) NOT REPORTED Normal [facility] Comment on above: Performed By: #### U A, UMICAO #### [facility] [address] [place] [address] Astro Technician: Rigo Luna MD Encounters Encounter Date Encounter Type Care Provider Facility Start: 03-14-2023 End: 04-13-2023 ambulatory ARCHIVIST ROSCOE LOGANZ Facility:[facility] Start: 03-02-2023 End: 03-02-2023 ambulatory ARCHIVIST ROSCOE SARAYHJAYJAYZ Facility:[facility] Start: 02-14-2023 End: 03-11-2023 ambulatory ARCHIVIST ROSCOE LOGANZ Facility:[facility] Start: 01-12-2023 End: 02-11-2023 ambulatory ARCHIVIST ROSCOE LOGANZ Facility:[facility] Start: 12-15-2022 End: 01-12-2023 ambulatory ARCHIVIST ROSCOE LOGANZ Facility:[facility] Start: 12-02-2022 End: 12-02-2022 ambulatory ARCHIVIST ROSCOE LOGANZ Facility:[facility] Start: 11-15-2022 End: 12-15-2022 ambulatory ARCHIVIST ROSCOE LOGANZ Facility:[facility] Start: 10-14-2022 End: 11-14-2022 ambulatory ARCHIVIST ROSCOE LOGANZ Facility:[facility] Start: 09-30-2022 ambulatory ARCHIVIST ROSCOE LOGANZ Facil ity:[facility]1 Start: 09-20-2022 End: 09-21-2022 ambulatory ARCHIVIST ROSCOE PABLITO Facility:[facility] Start: 09-14-2022 End: 10-13-2022 ambulatory ARCHIVIST ROSCOE LOGANZ Facility:[facility] Start: 09-03-2022 End: 09-03-2022 ambulatory ARCHIVIST ROSCOE LOGANZ Facility:[facility] Start: 08-15-2022 End: 09-13-2022 ambulatory ARCHIVIST ROSCOE PABLITO Facility:[facility] Start: 07-15-2022 End: 08-14-2022 ambulatory ROGERS H FAWWAD Facility:[facility] Start: 06-14-2022 End: 07-14-2022 ambulatory ROGERS H FAWWAD Facility:[facility] Start: 06-10-2022 End: 06-10-2022 ambulatory ARCHIVIST ROSCOE LOGANZ Facility:[facility] Start: 05-14-2022 End: 06-11-2022 ambulatory ROGERS H FAWWAD Facility:[facility] Start: 08-15-2020 End: 08-16-2020 Patient encounter procedure ROSCOE KENNEY [facility] Start: 10-22-2019 End: 10-23-2019 Patient encounter procedure ROSCOE KENNEY [facility] Procedures Date Procedure Procedure Detail Performing Clinician Start: 08-15-2020 Basic metabolic pane l calcium total ROSCOE KENNEY Start: 08-15-2020 Hemoglobin glycosylated a1c ROSCOE KENNEY Start: 10-22-2019 Culture bacterial qu anttative colony count urine ROSCOE KENNEY Start: 10-22-2019 Urinalysis microscopic only ROSCOE KENNEY Start: 10-22-2019 Urnls dip stick/tabl et rgnt auto w/o microscopy ROSCOE KENNEY Payers Date Payer Category Payer Medicare [id number] 1940 Unknown [id number] 2.16.8 [id number] 1940 Unknown [id number] 2.16.8 [id number] 1940 Unknown [id number] 2.16.84 0.1.259278.3.579.2.593 1940 Unknown [id number] 2.16.84 0.1.819925.3.579.2.593 1940 Unknown [id number] 2.16.84 0.1.496160.3.579.2.593 1938 Unknown [id number] 2.16.84 0.1.051951.3.579.2.593 1938 Unknown [id number] 2.16.84 0.1.078462.3.579.2.593 1938 Unknown [id number] 2.16.84 0.1.616253.3.579.2.593 1938 Unknown [id number] 2.16.84 0.1.734591.3.579.2.593 1938 Unknown [id number] 2.16.84 0.1.983131.3.579.2.593 1938 Unknown [id number] 2.16.84 0.1.262231.3.579.2.593 1938 Unknown [id number] 2.16.84 0.1.172795.3.579.2.593 1938 Unknown [id number] 2.16.84 0.1.366790.3.579.2.593 1938 Unknown [id number] 2.16.84 0.1.360977.3.579.2.593 1938 Unknown [id number] 2.16.84 0.1.607808.3.579.2.593 1938 Unknown [id number] 2.16.84 0.1.725986.3.579.2.593 1938 Unknown [id number] 2.16.84 0.1.279023.3.579.2.593 1938 Unknown [id number] 2.16.84 0.1.635431.3.579.2.593 1938 Unknown [id number] 2.16.84 0.1.234611.3.579.2.593 Summary Purpose Family History No Family History Records FoundNo Family History Records Found Advance Directives No Advanced Directives Records FoundNo Advanced Directives Records Found Additional Source Comments (unrecognized sect ion and content) No Status Records FoundNo Status Records Found INFORMATION SOURCE (unrecogn ized section and content) DATE CREATED AUTHOR 08/17/2020 [facility] [place] [facility] DATE CREATED AUTHOR AUTHOR'S RA BENAVIDES 04/22/2023 [facility] FOR RECORDS PERTAINING TO PATIENTS WHO ARE OR HAVE BEEN ENROLLED IN A CHEMICAL DEPENDENCY/SUBSTANCEABUSE PROGRAM, SOME INFORMATION MAY BE OMITTED. This clinical summary was aggregated from multiple sources. Caution should be exercised in using it in the provision of clinical care. This summary normalizes information from multiple sources, and as a consequence, information in this document may materially change the coding, format and clinical context of patient data. In addition, data may be omitted in some cases. CLINICAL DECISIONS SHOULD BE BASED ON THE PRIMARY CLINICAL RECORDS. [facility]. provides no warranty or guarantee of the accuracy or completeness of information in this document.
== END 2023-11-02 16:12 | disposition home or self-care (01) ==
LOC: RAD 16:11
PROVIDERS: Visit Provider Podiatrist Foot & Ankle Surgery
DX: M14.672 Charcot's joint, left ankle and foot (principal)
CPT/HCPCS: 73610

== ENCOUNTER 2023-11-14 01:30 | Outpatient (RCR) | payer MEDICARE, SELFPAY | END 2023-12-14 17:22 | disposition home or self-care (01) | LOC: MM 01:30 | PROVIDERS: Visit Provider Internal Medicine | DX: Z51.81 Encounter for therapeutic drug level monitoring (principal); Z79.01 Long term (current) use of anticoagulants; I48.91 Unspecified atrial fibrillation ==

== ENCOUNTER 2023-12-15 02:00 | Outpatient (RCR) | payer MEDICARE, SELFPAY | END 2024-01-12 17:23 | disposition home or self-care (01) | LOC: MM 02:00 | PROVIDERS: Visit Provider Internal Medicine | DX: Z51.81 Encounter for therapeutic drug level monitoring (principal); Z79.01 Long term (current) use of anticoagulants; I48.91 Unspecified atrial fibrillation ==

== ENCOUNTER 2023-12-20 13:09 | Outpatient (OUT) | payer MEDICARE, SELFPAY ==
--- NOTE | 2023-12-20 | XR_ITS ---
The [address] [address] Patient Name: CATERINA FINK MRN: [id number] date: 1940 Sex: M Assigned Patient Location: [facility] Current Patient Location: Accession/Order Number: [id number] Exam Date: 12/20/2023 13:12 Report Date: 12/21/2023 06:52 At the request of: [facility]A Procedure: XR ankle LT min 3V PROCEDURE: XR ankle LT min 3V HISTORY: LEFT ANKLE PAIN ; lateral malleolus fracture 09/20/2023 , 08/23/2023 COMPARISON: XR ankle left 11/02/2023 FINDINGS: BONES:Osteopenia of the ankle and visible foot. No visible fracture, periosteal reaction, or dislocation. Small, chronic soft tissue calcification medial to the medial malleolus favoring sequela of remote injury. SOFT TISSUES:No visible soft tissue swelling. EFFUSION:None visible. OTHER: Negative. XR/XR ankle LT min 3V IMPRESSION: 1. Generalized osteopenia, possibly from decreased use. 2. No dislocation, visible fracture, or suspicious findings. Electronically authenticated by: VAMSHI BARNES Date: 12/21/2023 06:52
--- OUTSIDE RECORDS SUMMARY | 2023-12-20 13:27 | XMS_ITS | CCD ---
Author Name Unknown Address [address] [place] [address] Organization [facility] Care Team Providers Care Fire Alarm Mechanic Name Role Phone ROSCOE KENNEY Referring Unavailable AICHHOLZ, ROSCOE JDejuan Referring Unavailable AICHHOLZ, LOAN REVIEW ANALYST ROSCOE Primary Care Unavailable FAWWAD, ROGERS H Attending Unavailable FAWWAD, ROGERS H Admitting Unavailable AICHHOLZ, LOAN REVIEW ANALYST ROSCOE Primary Care Unavailable FAWWAD, ROGERS H Attending Unavailable FAWWAD, ROGERS H Admitting Unavailable AICHHOLZ, LOAN REVIEW ANALYST ROSCOE Primary Care Unavailable FAWWAD, ROGERS H Attending Unavailable FAWWAD, ROGERS H Admitting Unavailable AICHHOLZ, LOAN REVIEW ANALYST ROSCOE Primary Care Unavailable AICHHOLZ, LOAN REVIEW ANALYST ROSCOE Admitting Unavailable AICHHOLZ, LOAN REVIEW ANALYST ROSCOE Attending Unavailable AICHHOLZ, LOAN REVIEW ANALYST ROSCOE Primary Care Unavailable NADEREDR NAOMI Kerr Consulting Unavailable NADERER, DR NAOMI Stafford Attending Unavailable DR NAOMI DODSON Admitting Unavailable AICHHOLZ, LOAN REVIEW ANALYST ROSCOE Primary Care Unavailable AICHHOLZ, LOAN REVIEW ANALYST ROSCOE Admitting Unavailable AICHHOLZ, LOAN REVIEW ANALYST ROSCOE Consulting Unavailable AICHHOLZ, LOAN REVIEW ANALYST ROSCOE Attending Unavailable AICHHOLZ, LOAN REVIEW ANALYST ROSCOE Primary Care Unavailable FAWWAD, ROGERS H Attending Unavailable FAWWAD, ROGERS H Admitting Unavailable AICHHOLZ, LOAN REVIEW ANALYST ROSCOE Primary Care Unavailable FAWWAD, ROGERS H Attending Unavailable FAWWAD, ROGERS H Admitting Unavailable AICHHOLZ, LOAN REVIEW ANALYST ROSCOE Primary Care Unavailable FAWWAD, ROGERS H Attending Unavailable FAWWAD, ROGERS H Admitting Unavailable FAWWAD, ROGERS H Attending Unavailable AICHHOLZ, LOAN REVIEW ANALYST ROSCOE Primary Care Unavailable FAWWAD, ROGERS H Admitting Unavailable AICHHOLZ, LOAN REVIEW ANALYST ROSCOE Primary Care Unavailable FAWWAD, ROGERS H Attending Unavailable FAWWAD, ROGERS H Admitting Unavailable AICHHOLZ, LOAN REVIEW ANALYST ROSCOE Primary Care Unavailable FAWWAD, ROGERS H Attending Unavailable FAWWAD, ROGERS H Admitting Unavailable FAWWAD, ROGERS H Admitting Unavailable AICHHOLZ, LOAN REVIEW ANALYST ROSCOE Primary Care Unavailable FAWWAD, ROGERS H Attending Unavailable FAWWAD, ROGERS H Admitting Unavailable FAWWAD, ROGERS H Attending Unavailable AICHHOLZ, LOAN REVIEW ANALYST ROSCOE Primary Care Unavailable AICHHOLZ, LOAN REVIEW ANALYST ROSCOE Primary Care Unavailable BANDAR ., GENEVIEVE Consulting Unavailable BANDAR ., GENEVIEVE Attending Unavailable BANDAR ., GENEVIEVE Admitting Unavailable GABRIELLA PULIDO Consulting Unavailable AICHHOLZ, LOAN REVIEW ANALYST ROSCOE Primary Care Unavailable AICHHOLZ, LOAN REVIEW ANALYST ROSCOE Consulting Unavailable AICHHOLZ, LOAN REVIEW ANALYST ROSCOE Attending Unavailable AICHHOLZ, LOAN REVIEW ANALYST ROSCOE Admitting Unavailable AICHHOLZ, LOAN REVIEW ANALYST ROSCOE Primary Care Unavailable AICHHOLZ, LOAN REVIEW ANALYST ROSCOE Consulting Unavailable AICHHOLZ, LOAN REVIEW ANALYST ROSCOE Attending Unavailable AICHHOLZ, LOAN REVIEW ANALYST ROSCOE Admitting Unavailable Problems Active Problems Problem [...] Onset: 3 Episodic Other aftercare (1 source) long-term (current) use of anticoagulants; Translations: [GROUP HOME CURRNT USE ANTICOAGULANTS] Onset: 3 Episodic Past or Other Problems Problem Classification Problem Date Documented Da te Episodic/Chronic Other aftercare (1 source) Other manager terminal (current) drug therapy; Translations: [OTH CERTIFIED NURSES AIDE CURRENT DRUG THERAPY] Onset: 12-06-2022 Episodic Other aftercare (1 source) long-term (current) use of oral hypoglycemic drugs; Translations: [CERTIFIED NURSES AIDE USE ORAL HYPOGLYCEMIC DX] Onset: 12-06-2022 Episodic [...] 2022 ADA RECOMMENDATION SEE BELOW Normal [facility] Comment on above: Result Comment: ADA RECOMMENDED LIMIT 4.0 - 6.0 ADA THERAPEUTIC TARGET < 7.0 ACTION SUGGESTED > 7.0 Performed By: #### A 1C #### [facility] [address] [place] [address] Dr. Javi Flynn Glucose [Mass/Vol] 275 mg/dL Normal [facility] Comment on above: Performed By: #### A 1C #### [facility] [address] [place] [address] Dr. Javi Flynn HbA1c (Bld) [Mass fraction] 11.2 % Critically high 4.5-6.2 [facility] Comment on above: Performed By: #### A 1C #### [facility] [address] [place] [address] Dr. Javi Flynn PROF CHEM 8 (BAS METB)on Anion gap [Moles/Vol] 13.8 mmol/L Normal [facility] Comment on above: Performed By: #### B MP #### [facility] [address] [address] [address] Javi Flynn Calcium [Mass/Vol] 8.8 mg/dL Normal 8.5-10.1 [facility] Comment on above: Performed By: #### B MP #### [facility] [address] [address] [address] Javi Flynn Chloride [Moles/Vol] 102 mmol/L Normal 98-107 [facility] Comment on above: Performed By: #### B MP #### [facility] [address] [address] [address] Javi Flynn CO2 [Moles/Vol] 26.6 mmol/L Normal 21.0-32.0 [facility] Comment on above: Performed By: #### B MP #### [facility] [address] [address] [address] Javi Flynn Creatinine [Mass/Vol] 1.50 mg/dL Critically high 0.70-1.30 [facility] Comment on above: Performed By: #### B MP #### [facility] [address] [address] [address] Javi Fylnn EGFR-AF SLOVAK 54 mL/min/1.73m2 Critically low >=60 [facility] Comment on above: Performed By: #### B MP #### [facility] [address] [address] [address] Javi Flynn EGFR-NON AF SLOVAK 45 mL/min/1.73m2 Critically low >=60 [facility] Comment on above: Performed By: #### B MP #### [facility] [address] [address] [address] Javi Flynn Glucose [Mass/Vol] 349 mg/dL Critically high 74-106 [facility] Comment on above: Performed By: #### B MP #### [facility] [address] [address] [address] Javi Flynn Potassium [Moles/Vol] 4.4 mmol/L Normal 3.5-5.1 [facility] Comment on above: Performed By: #### B MP #### [facility] [address] [address] [address] Javi Flynn Sodium [Moles/Vol] 138 mmol/L Normal 136-145 [facility] Comment on above: Performed By: #### B MP #### [facility] [address] [address] [address] Javi Flynn Urea nitrogen [Mass/Vol] 22.0 mg/dL Critically high 7.0-18.0 [facility] Comment on above: Performed By: #### B MP #### [facility] [address] [place] [address] Dr. Javi Flynn Urea nitrogen/Creatinine [Mass ratio] 14.7 mg/mg Normal [facility] Comment on above: Performed By: #### B MP #### [facility] [address] [place] [address] Dr. Javi Flynn PROTIMEon 03-02-2023 INR Coag (PPP) [Relative time] 2.94 {INR} Normal [facility] Comment on above: Performed By: #### P T #### [facility] [address] [place] [address] Dr. Javi Flynn INR GUIDELINES SEE BELOW Normal [facility] Comment on above: Result Comment: EDDIE RED INR: 2.0 - 3.0 CONDITIONS NOT LISTED BELOW 2.5 - 3.5 FOR PROSTHETIC HEART VALVE REPLACEMENT 2.5 - 3.5 RECURRENT THROMBOSIS Performed By: #### P T #### [facility] [address] [place] [address] Dr. Javi Flynn PT Coag (PPP) [Time] 29.3 s Critically high 9.0-11.6 [facility] Comment on above: Performed By: #### P T #### [facility] [address] [place] [address] Dr. Javi Flynn CBC AUTO DIFFon 09-20-2022 BASO # 0.1 103/ul Normal 0.0-0.1 [facility] Comment on above: Performed By: #### C BC #### [facility] [address] [address] [address] Javi Flynn Basophils/100 WBC (Bld) 0.8 % Normal 0.2-2.0 [facility] Comment on above: Performed By: #### C BC #### [facility] [address] [address] [address] Javi Flynn EO # 0.2 103/ul Normal 0.0-0.7 [facility] Comment on above: Performed By: #### C BC #### [facility] [address] [place] [address] Dr. Javi Flynn Eosinophils/100 WBC (Bld) 2.9 % Normal 0.9-7.0 [facility] Comment on above: Performed By: #### C BC #### [facility] [address] [place] [address] Dr. Javi Flynn Erythrocyte distribution width (RBC) [Ratio] 13.6 % Normal 11.0-15.0 [facility] Comment on above: Performed By: #### C BC #### [facility] [address] [place] [address] Dr. Javi Flynn Hematocrit (Bld) [Volume fraction] 40.0 % Critically low 42.0-54.0 [facility] Comment on above: Performed By: #### C BC #### [facility] [address] [place] [address] Dr. Javi Flynn Hemoglobin (Bld) [Mass/Vol] 13.1 g/dL Critically low 14.0-18.0 [facility] Comment on above: Performed By: #### C BC #### [facility] [address] [place] [address] Dr. Javi Flynn IG # 0.03 10e3/ul Normal 0.00-0.03 [facility] Comment on above: Performed By: #### C BC #### [facility] [address] [place] [address] Dr. Javi Flynn IG % 0.5 % Normal 0.0-0.5 [facility] Comment on above: Performed By: #### C BC #### [facility] [address] [place] [address] Dr. Javi Flynn LYMPH # 2.1 103/ul Normal 1.2-3.8 [facility] Comment on above: Performed By: #### C BC #### [facility] [address] [place] [address] Dr. Javi Flynn Lymphocytes/100 WBC (Bld) 32.0 % Normal 20.5-60.0 [facility] Comment on above: Performed By: #### C BC #### [facility] [address] [place] [address] Dr. Javi Flynn MANUAL DIFF REQ NO Normal [facility] Comment on above: Performed By: #### C BC #### [facility] [address] [place] [address] Dr. Javi Flynn MCH (RBC) [Entitic mass] 28.1 pg Normal 25.9-34.0 [facility] Comment on above: Performed By: #### C BC #### [facility] [address] [place] [address] Dr. Javi Flynn MCHC (RBC) [Mass/Vol] 32.8 g/dL Normal 29.9-35.2 [facility] Comment on above: Performed By: #### C BC #### [facility] [address] [place] [address] Dr. Javi Flynn MCV (RBC) [Entitic vol] 85.8 fL Normal 80.0-94.0 [facility] Comment on above: Performed By: #### C BC #### [facility] [address] [place] [address] Dr. Javi Flynn MONO # 0.6 103/ul Normal 0.3-0.8 [facility] Comment on above: Performed By: #### C BC #### [facility] [address] [place] [address] Dr. Javi Flynn Monocytes/100 WBC (Bld) 8.7 % Normal 1.7-12.0 [facility] Comment on above: Performed By: #### C BC #### [facility] [address] [address] [address] Javi Flynn NEUT # 3.7 103/ul Normal 1.4-6.5 [facility] Comment on above: Performed By: #### C BC #### [facility] [address] [address] [address] Javi Flynn Neutrophils/100 WBC (Bld) 55.1 % Normal 43.0-75.0 [facility] Comment on above: Performed By: #### C BC #### [facility] [address] [address] [address] Javi Flynn Platelet mean volume (Bld) [Entitic vol] 9.4 fL Critically low 9.5-13.5 [facility] Comment on above: Performed By: #### C BC #### [facility] [address] [place] [address] Dr. Javi Flynn PLT 268 103/ul Normal 150-450 [facility] Comment on above: Performed By: #### C BC #### [facility] [address] [place] [address] Dr. Javi Flynn RBC 4.66 106/ul Critically low 4.70-6.10 [facility] Comment on above: Performed By: #### C BC #### [facility] [address] [place] [address] Dr. Javi Flynn WBC 6.7 103/ul Normal 4.0-11.0 [facility] Comment on above: Performed By: #### C BC #### [facility] [address] [place] [address] Dr. Javi Flynn GLYCOHEMOGLOBIN A1Con 2021 ADA RECOMMENDATION SEE BELOW Normal [facility] Comment on above: Result Comment: ADA RECOMMENDED LIMIT 4.0 - 6.0 ADA THERAPEUTIC TARGET < 7.0 ACTION SUGGESTED > 7.0 Performed By: #### A 1C #### [facility] [address] [place] [address] Dr. Javi Flynn Glucose [Mass/Vol] 312 mg/dL Normal [facility] Comment on above: Performed By: #### A 1C #### [facility] [address] [address] [address] Javi Flynn HbA1c (Bld) [Mass fraction] 12.5 % Critically high 4.5-6.2 [facility] Comment on above: Performed By: #### A 1C #### [facility] [address] [place] [address] Dr. Javi Flynn PROF CHEM 8 (BAS METB)on Anion gap [Moles/Vol] 10.9 mmol/L Normal [facility] Comment on above: Performed By: #### B MP #### [facility] [address] [place] [address] Dr. Javi Flynn Calcium [Mass/Vol] 8.7 mg/dL Normal 8.5-10.1 [facility] Comment on above: Performed By: #### B MP #### [facility] [address] [place] [address] Dr. Javi Flynn Chloride [Moles/Vol] 98 mmol/L Normal 98-107 [facility] Comment on above: Performed By: #### B MP #### [facility] [address] [place] [address] Dr. Javi Flynn CO2 [Moles/Vol] 25.3 mmol/L Normal 21.0-32.0 [facility] Comment on above: Performed By: #### B MP #### [facility] [address] [place] [address] Dr. Javi Flynn Creatinine [Mass/Vol] 1.18 mg/dL Normal 0.70-1.30 [facility] Comment on above: Performed By: #### B MP #### [facility] [address] [place] [address] Dr. Javi Flynn EGFR-AF SLOVAK >60 Normal >=60 [facility] Comment on above: Performed By: #### B MP #### [facility] [address] [place] [address] Dr. Javi Flynn EGFR-NON AF SLOVAK 59 mL/min/1.73m2 Critically low >=60 [facility] Comment on above: Performed By: #### B MP #### [facility] [address] [address] [address] Javi Flynn Glucose [Mass/Vol] 256 mg/dL Critically high 74-106 [facility] Comment on above: Performed By: #### B MP #### [facility] [address] [address] [address] Javi Flynn Potassium [Moles/Vol] 4.2 mmol/L Normal 3.5-5.1 [facility] Comment on above: Performed By: #### B MP #### [facility] [address] [address] [address] Javi Flynn Sodium [Moles/Vol] 130 mmol/L Critically low 136-145 [facility] Comment on above: Performed By: #### B MP #### [facility] [address] [address] [address] Javi Flynn Urea nitrogen [Mass/Vol] 17.0 mg/dL Normal 7.0-18.0 [facility] Comment on above: Performed By: #### B MP #### [facility] [address] [address] [address] Javi Flynn Urea nitrogen/Creatinine [Mass ratio] 14.4 mg/mg Normal [facility] Comment on above: Performed By: #### B MP #### [facility] [address] [address] [address] Javi Flynn PROTIMEon 09-03-2022 INR Coag (PPP) [Relative time] 5.23 {INR} Critically high [facility] Comment on above: Performed By: #### P T #### [facility] [address] [address] [address] Javi Flynn INR GUIDELINES SEE BELOW Normal [facility] Comment on above: Result Comment: EDDIE RED INR: 2.0 - 3.0 CONDITIONS NOT LISTED BELOW 2.5 - 3.5 FOR PROSTHETIC HEART VALVE REPLACEMENT 2.5 - 3.5 RECURRENT THROMBOSIS Performed By: #### P T #### [facility] [address] [place] [address] Dr. Javi Flynn PT Coag (PPP) [Time] 50.7 s Critically high 9.0-11.[address] [facility] Comment on above: Performed By: #### P T #### [facility] [address] [place] [address] Dr. Javi Flynn CULTURE URINEon 06-15-2022 CULTURE [...] F Oxacillin >=4 R F Normal [facility] Comment on above: Performed By: #### U RCX #### [facility] [address] [place] [address] Dr. Javi Flynn UA RANDOM W/MICROSCOPICon BACTERIA MODERATE Abnormal NONE SEEN [facility] Comment on above: Performed By: #### U AMIC #### [facility] [address] [place] [address] Dr. Javi Flynn Bilirubin Ql (U) Negative Normal NEGATIVE [facility] Comment on above: Performed By: #### U AMIC #### [facility] [address] [address] [address] Javi Flynn CAST NONE SEEN Normal NONE SEEN [facility] Comment on above: Performed By: #### U AMIC #### [facility] [address] [address] [address] Javi Flynn Clarity (U) CLEAR Normal CLEAR [facility] Comment on above: Performed By: #### U AMIC #### [facility] [address] [address] [address] Javi Flynn Color (U) BROWN Abnormal YELLOW [facility] Comment on above: Performed By: #### U AMIC #### [facility] [address] [place] [address] Dr. Javi Flynn Crystals LM Nom (Urine sed) NONE SEEN Normal NONE SEEN [facility] Comment on above: Performed By: #### U AMIC #### [facility] [address] [place] [address] Dr. Javi Flynn Epithelial cells LM Ql (Urine sed) RARE Normal NONE SEEN /RARE [facility] Comment on above: Performed By: #### U AMIC #### [facility] [address] [place] [address] Dr. Javi Flynn Glucose Ql (U) >1000 Abnormal NEGATIVE [facility] Comment on above: Performed By: #### U AMIC #### [facility] [address] [place] [address] Dr. Javi Flynn Hemoglobin Ql (U) MODERATE Abnormal NEGATIVE [facility] Comment on above: Performed By: #### U AMIC #### [facility] [address] [place] [address] Dr. Javi Flynn Ketones Ql (U) Negative Normal NEGATIVE [facility] Comment on above: Performed By: #### U AMIC #### [facility] [address] [place] [address] Dr. Javi Flynn LEUKOCYTES LARGE Abnormal NEGATIVE [facility] Comment on above: Performed By: #### U AMIC #### [facility] [address] [place] [address] Dr. Javi Flynn MUCOUS NONE SEEN Normal NONE SEEN [facility] Comment on above: Performed By: #### U AMIC #### [facility] [address] [address] [address] Javi Flynn Nitrite Ql (U) Negative Normal NEGATIVE [facility] Comment on above: Performed By: #### U AMIC #### [facility] [address] [address] [address] Javi Flynn pH (U) 5.5 [pH] Normal 5-9 [facility] Comment on above: Performed By: #### U AMIC #### [facility] [address] [address] [address] Javi Flynn RBC 10-20 Abnormal 0-2 [facility] Comment on above: Performed By: #### U AMIC #### [facility] [address] [place] [address] Dr. Javi Flynn SPEC GRAVITY 1.010 Normal 1.005-<=1.025 [facility] Comment on above: Performed By: #### U AMIC #### [facility] [address] [address] [address] Javi Flynn UA PROTEIN Negative Normal NEGATIVE/ TRACE [facility] Comment on above: Performed By: #### U AMIC #### [facility] [address] [address] [address] Javi Flynn Urobilinogen Qn (U) 0.2 {Laurie'U}/dL Normal 0.2 - 1. 0 [facility] Comment on above: Performed By: #### U AMIC #### [facility] [address] [place] [address] Dr. Javi Flynn WBC (U) [#/Vol] /uL Abnormal NONE SEEN [facility] Comment on above: Performed By: #### U AMIC #### [facility] [address] [place] [address] Dr. Javi Flynn Hemoglobin A1Con 08-17-2020 HbA1c (Bld) [Mass fraction] 206 mg/dL Normal [facility] Comment on above: Result Comment: The ADA and AACC recommend providing the estimated average glucose result to permit better patient understanding of their HBA1c result. Performed By: #### B MP #### [address] [place] [address] Milling/Polishing Operator: Chago Esposito MD #### GLYHGB #### [id number] [place], [place] [id number] Milling/Polishing Operator: Rigo Luna MD HbA1c (Bld) [Mass fraction] 8.8 % High 4.0-6.0 [facility] Comment on above: Performed By: #### B MP #### [address] [place] [address] Milling/Polishing Operator: Chago Esposito MD #### GLYHGB #### [address] [place], [place] [id number] Milling/Polishing Operator: Rigo Luna MD Basic Metabolic Profon 08-15 (cont.) Normal [facility] Comment on above: Result Comment: Aver age GFR for 70 or more years old: 75 mL/min/1.73sq m Chronic Kidney Disease: <60 mL/min/1.73sq m Kidney failure: <15 mL/min/1.73sq m eGFR calculated using average adult body mass. Additional eGFR calculator available at: http://www.[employer].Doctolib/multiple_crcl_2012.htm Performed By: #### B MP #### [address] [place] [address] Milling/Polishing Operator: Chago Esposito MD #### GLYHGB #### [id number] [place], [place] [id number] Milling/Polishing Operator: Rigo Luna MD Anion gap [Moles/Vol] 13 mmol/L Normal 9-17 [facility] Comment on above: Performed By: #### B MP #### [address] [place] [address] Milling/Polishing Operator: Chago Esposito MD #### GLYHGB #### [facility] [address] [place] [address] Milling/Polishing Operator: Rigo Luna MD BUN/CRE Ratio 18 Normal 9-20 [facility] Comment on above: Performed By: #### B MP #### [facility] [address] [place], [place] [id number] Milling/Polishing Operator: Chago Esposito MD #### GLYHGB #### [address] [address] Milling/Polishing Operator: Rigo Luna MD Calcium [Mass/Vol] 8.9 mg/dL Normal 8.6-10.4 [facility] Comment on above: Performed By: #### B MP #### [facility] [address] [place], [place] [id number] Milling/Polishing Operator: Chago Esposito MD #### GLYHGB #### [facility] [address] [place] [address] Milling/Polishing Operator: Rigo Luna MD Chloride [Moles/Vol] 96 mmol/L Low 98-107 [facility] Comment on above: Performed By: #### B MP #### [facility] [address] [place] [address] Milling/Polishing Operator: Chago Esposito MD #### GLYHGB #### [facility] [address] [place] [address] Milling/Polishing Operator: Rigo Luna MD CO2 [Moles/Vol] 23 mmol/L Normal 20-31 [facility] Comment on above: Performed By: #### B MP #### [facility] [address] [place] [address] Milling/Polishing Operator: Chago Esposito MD #### GLYHGB #### [facility] [address] [place] [address] Milling/Polishing Operator: Rigo Luna MD Creatinine [Mass/Vol] 1.04 mg/dL Normal 0.70-1.20 [facility] Comment on above: Performed By: #### B MP #### [facility] [address] [place], [place] [id number] Milling/Polishing Operator: Chago Esposito MD #### GLYHGB #### [address] [address] Milling/Polishing Operator: Rigo Luna MD GFR, Amer >60 Normal >60 [facility] Comment on above: Performed By: #### B MP #### [facility] [address] [place], [place] [phone] Milling/Polishing Operator: Chago Esposito MD #### GLYHGB #### [address] [address] Milling/Polishing Operator: Rigo Luna MD GFR,non Amer >60 Normal >60 [facility] Comment on above: Performed By: #### B MP #### [facility] [address] [place], [place] [id number] Milling/Polishing Operator: Chago Esposito MD #### GLYHGB #### [address] [address] Milling/Polishing Operator: Rigo Luna MD Glucose [Mass/Vol] 249 mg/dL High 70-99 [facility] Comment on above: Performed By: #### B MP #### [facility] [address] [place] [address] Milling/Polishing Operator: Chago Esposito MD #### GLYHGB #### [address] [address] Milling/Polishing Operator: Rigo Luna MD Potassium [Moles/Vol] 4.1 mmol/L Normal 3.7-5.3 [facility] Comment on above: Performed By: #### B MP #### [facility] [address] [place], [place] [phone] Milling/Polishing Operator: Chago Esposito MD #### GLYHGB #### [address] [place], [place] [id number] Milling/Polishing Operator: Rigo Luna MD Sodium [Moles/Vol] 132 mmol/L Low 135-144 [facility] Comment on above: Performed By: #### B MP #### [facility] [address] [place], [place] [id number] Milling/Polishing Operator: Chago Esposito MD #### GLYHGB #### [address] [id number] Milling/Polishing Operator: Rigo Luna MD Staging: Normal [facility] Comment on above: Result Comment: Stag e 1: Some kidney damage normal GFR Stage 2: Mild kidney damage GFR 60-89 Stage 3: Moderate kidney damage GFR 30-59 Stage 4: Severe kidney damage GFR 15-29 Stage 5: Severe kidney damage GFR <15 ESRD - chronic treatment by dialysis or transplant Performed By: #### B MP #### [address] [place], [place] [address] Milling/Polishing Operator: Chago Esposito MD #### GLYHGB #### [address] [address] Milling/Polishing Operator: Rigo Luna MD Urea nitrogen [Mass/Vol] 19 mg/dL Normal 8-23 [facility] Comment on above: Performed By: #### B MP #### [address] [place], [place] [id number] Milling/Polishing Operator: Chago Esposito MD #### GLYHGB #### [address] [address] Milling/Polishing Operator: Rigo Luna MD Cult,Urineon 10-24-2019 Cult,Urine Specimen Description .VOIDED URINE Special Requests NOT REPORTED Culture Several types of bacteria were identified in this specimen. Further ID and susceptibility testing is generally not helpful in this circumstance and has not been performed. Consider recollection if clinically indicated. Please contact the Micro lab ([phone]) if you feel the management ofthis particular situation would be helped by further testing. Report Status FINAL 10/24/2019 Normal [facility] Comment on above: Performed By: #### U RC #### [address] [address] Milling/Polishing Operator: Rigo Luna MD [facility] [address] [place] [address] Milling/Polishing Operator: Chago Esposito MD Urinalysis, Routineon 2018 Acetoacetic Acid,Ur Negative Normal NEG [facility] Comment on above: Performed By: #### U A, UMICAO #### [address] [address] Milling/Polishing Operator: Rigo Luna MD Bilirubin, SemiQt,Ur Negative Normal NEG [facility] Comment on above: Performed By: #### U A, UMICAO #### [facility] xiao qu wu you [address] [place] [address] Milling/Polishing Operator: Rigo Luna MD Color (U) YELLOW Normal YEL [facility] Comment on above: Performed By: #### U A, UMICAO #### [facility] qu wu you [address] [place] [address] Milling/Polishing Operator: Rigo Luna MD Glucose Ql (U) Negative Normal NEG [facility] Comment on above: Performed By: #### U A, UMICAO #### [facility] [place] [address] Milling/Polishing Operator: Rigo Luna MD Hemoglobin, Ur Negative Normal NEG [facility] Comment on above: Performed By: #### U A, UMICAO #### [facility] [address] [place] [address] Milling/Polishing Operator: Rigo uLna MD Leukocyte esterase Test strip Ql (U) MODERATE Abnormal NEG [facility] Comment on above: Performed By: #### U A, UMICAO #### [address] [address] Milling/Polishing Operator: Rigo Luna MD Nitrite,Ur Negative Normal NEG [facility] Comment on above: Performed By: #### U A, UMICAO #### [address] [address] Milling/Polishing Operator: Rigo Luna MD pH (U) 5.5 [pH] Normal 5.0-8.0 [facility] Comment on above: Performed By: #### U A, UMICAO #### [address] [address] Milling/Polishing Operator: Rigo Luna MD Protein Ql (U) Negative Normal NEG [facility] Comment on above: Performed By: #### U A, UMICAO #### [address] [address] Milling/Polishing Operator: Rigo Luna MD Specific gravity (U) [Rel density] 1.013 Normal 1.005-1.030 [facility] Comment on above: Performed By: #### U A, UMICAO #### [address] [address] Milling/Polishing Operator: Rigo Luna MD Turbidity CLEAR Normal CLEAR [facility] Comment on above: Performed By: #### U A, UMICAO #### [address] [address] Milling/Polishing Operator: Rigo Luna MD Urobilinogen,Ur Normal Normal NORM [facility] Comment on above: Performed By: #### U A, UMICAO #### [address] [address] Milling/Polishing Operator: Rigo Luna MD Urinalysis,Microon 9 ----- Normal [facility] Comment on above: Performed By: #### U A, UMICAO #### [facility] [address] [place] [address] Milling/Polishing Operator: iRgo Luna MD Epithelial cells LM.HPF (Urine sed) [#/Area] 2 TO 5 Normal 0-5 [facility] Comment on above: Performed By: #### U A, UMICAO #### [facility] [address] [place] [address] Milling/Polishing Operator: Rigo Luna MD RBC (U) [#/Vol] 0 TO 2 Normal 0-4 [facility] Comment on above: Result Comment: Refe rence range defined for non-centrifuged specimen. Performed By: #### U A, UMICAO #### [address] [address] Milling/Polishing Operator: Rigo Luna MD WBC (U) [#/Vol] 10 TO 20 Normal 0-5 [facility] Comment on above: Performed By: #### U A, UMICAO #### [address] [address] Milling/Polishing Operator: Rigo Luna MD Urinalysis, Routineon 2018 Comment NOT REPORTED Normal [facility] Comment on above: Performed By: #### U A, UMICAO #### [address] [address] Milling/Polishing Operator: Rigo Luna MD Urinalysis,Microon 9 Amorphous sediment LM Ql (Urine sed) NOT REPORTED Normal [facility] Comment on above: Performed By: #### U A, UMICAO #### [facility] [address] [place] [address] Milling/Polishing Operator: Rigo Luna MD Bacteria LM.HPF (Urine sed) [#/Area] NOT REPORTED Normal [facility] Comment on above: Performed By: #### U A, UMICAO #### [facility] [address] [place], [place] [address], [place] [address] Milling/Polishing Operator: Rigo Luna MD Casts LM.LPF (Urine sed) [#/Area] NOT REPORTED Normal 0-8 [facility] Comment on above: Performed By: #### U A, UMICAO #### [facility] [address] [place] [address] Milling/Polishing Operator: Rigo Luna MD Crystals LM Nom (Urine sed) NOT REPORTED Normal NONE [facility] Comment on above: Performed By: #### U A, UMICAO #### [facility] [address] [place] [address] Milling/Polishing Operator: Rigo Luna MD Epithelial, Renal NOT REPORTED Normal 0 [facility] Comment on above: Performed By: #### U A, UMICAO #### [facility] [address] [place] [address] Milling/Polishing Operator: Rigo Luna MD Mucus Strands NOT REPORTED Normal [facility] Comment on above: Performed By: #### U A, UMICAO #### [facility] [address] [place] [address] Milling/Polishing Operator: Rigo Luna MD Other Observations NOT REPORTED Normal NREQ [facility] Comment on above: Performed By: #### U A, UMICAO #### [facility] [address] [place] [address] Milling/Polishing Operator: Rigo Luna MD Trichomonas NOT REPORTED Normal NONE [facility] Comment on above: Performed By: #### U A, UMICAO #### [facility] [address] [place] [address] Milling/Polishing Operator: Rigo Luna MD Yeast LM Ql (Urine sed) NOT REPORTED Normal [facility] Comment on above: Performed By: #### U A, UMICAO #### [facility] [address] [place] [address] Milling/Polishing Operator: Rigo Luna MD Encounters Encounter Date Encounter Type Care Provider Facility Start: 03-14-2023 End: 04-13-2023 ambulatory LOAN REVIEW ANALYST ROSCOE LOGANZ Facility:[facility] Start: 03-02-2023 End: 03-02-2023 ambulatory LOAN REVIEW ANALYST ROSCOE SARAYHJAYJAYZ Facility:[facility] Start: 02-14-2023 End: 03-11-2023 ambulatory LOAN REVIEW ANALYST ROSCOE LOGANZ Facility:[facility] Start: 01-12-2023 End: 02-11-2023 ambulatory LOAN REVIEW ANALYST ROSCOE LOGANZ Facility:[facility] Start: 12-15-2022 End: 01-12-2023 ambulatory LOAN REVIEW ANALYST ROSCOE LOGANZ Facility:[facility] Start: 12-02-2022 End: 12-02-2022 ambulatory LOAN REVIEW ANALYST ROSCOE LOGANZ Facility:[facility] Start: 11-15-2022 End: 12-15-2022 ambulatory LOAN REVIEW ANALYST ROSCOE LOGANZ Facility:[facility] Start: 10-14-2022 End: 11-14-2022 ambulatory LOAN REVIEW ANALYST ROSCOE LOGANZ Facility:[facility] Start: 09-30-2022 ambulatory LOAN REVIEW ANALYST ROSCOE LOGANZ Facil ity:[facility]1 Start: 09-20-2022 End: 09-21-2022 ambulatory LOAN REVIEW ANALYST ROSCOE PABLITO Facility:[facility] Start: 09-14-2022 End: 10-13-2022 ambulatory LOAN REVIEW ANALYST ROSCOE LOGANZ Facility:[facility] Start: 09-03-2022 End: 09-03-2022 ambulatory LOAN REVIEW ANALYST ROSCOE LOGANZ Facility:[facility] Start: 08-15-2022 End: 09-13-2022 ambulatory LOAN REVIEW ANALYST ROSCOE PABLITO Facility:[facility] Start: 07-15-2022 End: 08-14-2022 ambulatory ROGERS H FAWWAD Facility:[facility] Start: 06-14-2022 End: 07-14-2022 ambulatory ROGERS H FAWWAD Facility:[facility] Start: 06-10-2022 End: 06-10-2022 ambulatory LOAN REVIEW ANALYST ROSCOE LOGANZ Facility:[facility] Start: 05-14-2022 End: 06-11-2022 ambulatory ROGERS H FAWWAD Facility:[facility] Start: 08-15-2020 End: 08-16-2020 Patient encounter procedure ROSCOE KENNEY [facility] Start: 10-22-2019 End: 10-23-2019 Patient encounter procedure ROSCOE KENNEY [facility] Procedures Date Procedure Procedure Detail Performing Clinician Start: 08-15-2020 Basic metabolic pane l calcium total ROSCOE KENNEY Start: 08-15-2020 Hemoglobin glycosylated a1c ROSCOE KENNEY Start: 10-22-2019 Culture bacterial qu anttative colony count urine ROSCOE KENNEY Start: 10-22-2019 Urinalysis microscopic only ROSCOE KENNEY Start: 10-22-2019 Urnls dip stick/tabl et rgnt auto w/o microscopy ROSCOE KENNEY Payers Date Payer Category Payer Medicare [id number] 1940 Unknown [id number] 2.16.8 [id number] 1940 Unknown [id number] 2.16.8 [id number] 1940 Unknown [id number] 2.16.84 0.1.611215.3.579.2.593 1940 Unknown [id number] 2.16.84 0.1.223097.3.579.2.593 1940 Unknown [id number] 2.16.84 0.1.750490.3.579.2.593 1940 Unknown [id number] 2.16.84 0.1.089405.3.579.2.593 1940 Unknown [id number] 2.16.84 0.1.237408.3.579.2.593 1940 Unknown [id number] 2.16.84 0.1.762790.3.579.2.593 1940 Unknown [id number] 2.16.84 0.1.463813.3.579.2.593 1938 Unknown [id number] 2.16.84 0.1.242356.3.579.2.593 1940 Unknown [id number] 2.16.84 0.1.478529.3.579.2.593 1938 Unknown [id number] 2.16.84 0.1.048550.3.579.2.593 1938 Unknown [id number] 2.16.84 0.1.562161.3.579.2.593 1938 Unknown [id number] 2.16.84 0.1.185847.3.579.2.593 1938 Unknown [id number] 2.16.84 0.1.629438.3.579.2.593 1938 Unknown [id number] 2.16.84 0.1.180311.3.579.2.593 1938 Unknown [id number] 2.16.84 0.1.362921.3.579.2.593 1940 Unknown [id number] 2.16.84 0.1.987014.3.579.2.593 1940 Unknown [id number] 2.16.84 0.1.867495.3.579.2.593 Summary Purpose Family History No Family History Records FoundNo Family History Records Found Advance Directives No Advanced Directives Records FoundNo Advanced Directives Records Found Additional Source Comments (unrecognized sect ion and content) No Status Records FoundNo Status Records Found INFORMATION SOURCE (unrecogn ized section and content) DATE CREATED AUTHOR 08/17/2020 Jyoti [place] [facility] DATE CREATED AUTHOR AUTHOR'S RA BENAVIDES 04/22/2023 [facility] FOR RECORDS PERTAINING TO PATIENTS WHO [...] BE BASED ON THE PRIMARY CLINICAL RECORDS. [facility] [employer] [facility]. provides no warranty or guarantee of the accuracy or completeness of information in this document.
== END 2023-12-20 13:10 | disposition home or self-care (01) ==
LOC: RAD 13:10
PROVIDERS: Visit Provider Physician Assistant
DX: M14.672 Charcot's joint, left ankle and foot (principal); M85.80 Other specified disorders of bone density and structure, unspecified site
CPT/HCPCS: 73610

== ENCOUNTER 2024-01-13 01:16 | Outpatient (RCR) | payer MEDICARE, SELFPAY | END 2024-02-10 13:22 | disposition home or self-care (01) | LOC: MM 01:16 | PROVIDERS: Visit Provider Internal Medicine | DX: Z51.81 Encounter for therapeutic drug level monitoring (principal); Z79.01 Long term (current) use of anticoagulants; I48.91 Unspecified atrial fibrillation ==

== ENCOUNTER 2024-02-13 00:10 | Outpatient (RCR) | payer MEDICARE, SELFPAY | END 2024-03-13 17:53 | disposition home or self-care (01) | LOC: MM 00:10 | PROVIDERS: Visit Provider Internal Medicine | DX: Z51.81 Encounter for therapeutic drug level monitoring (principal); Z79.01 Long term (current) use of anticoagulants; I48.91 Unspecified atrial fibrillation ==

== ENCOUNTER 2024-03-14 00:19 | Outpatient (RCR) | payer MEDICARE, SELFPAY | END 2024-04-13 11:15 | disposition home or self-care (01) | LOC: MM 00:19 | PROVIDERS: Visit Provider Internal Medicine | DX: Z51.81 Encounter for therapeutic drug level monitoring (principal); Z79.01 Long term (current) use of anticoagulants; I48.91 Unspecified atrial fibrillation ==

== ENCOUNTER 2024-04-16 03:17 | Outpatient (RCR) | payer MEDICARE, SELFPAY | END 2024-05-11 10:43 | disposition home or self-care (01) | LOC: MM 03:17 | PROVIDERS: Visit Provider Internal Medicine | DX: Z51.81 Encounter for therapeutic drug level monitoring (principal); Z79.01 Long term (current) use of anticoagulants; I48.91 Unspecified atrial fibrillation ==

== ENCOUNTER 2024-05-14 00:11 | Outpatient (RCR) | payer MEDICARE, SELFPAY | END 2024-06-13 09:52 | disposition home or self-care (01) | LOC: MM 00:11 | PROVIDERS: Visit Provider Internal Medicine | DX: Z51.81 Encounter for therapeutic drug level monitoring (principal); Z79.01 Long term (current) use of anticoagulants; I48.91 Unspecified atrial fibrillation ==

== ENCOUNTER 2024-06-14 00:19 | Outpatient (RCR) | payer MEDICARE, SELFPAY | END 2024-07-13 09:51 | disposition home or self-care (01) | LOC: MM 00:19 | PROVIDERS: Visit Provider Internal Medicine | DX: Z51.81 Encounter for therapeutic drug level monitoring (principal); Z79.01 Long term (current) use of anticoagulants; I48.91 Unspecified atrial fibrillation ==

== ENCOUNTER 2024-07-16 01:27 | Outpatient (RCR) | payer MEDICARE, SELFPAY | END 2024-08-13 23:54 | disposition home or self-care (01) | LOC: MM 01:27 | PROVIDERS: Visit Provider Internal Medicine | DX: Z51.81 Encounter for therapeutic drug level monitoring (principal); Z79.01 Long term (current) use of anticoagulants; I48.91 Unspecified atrial fibrillation ==

== ENCOUNTER 2024-08-14 02:42 | Outpatient (RCR) | payer MEDICARE, SELFPAY | END 2024-09-13 23:44 | disposition home or self-care (01) | LOC: MM 02:42 | PROVIDERS: Visit Provider Internal Medicine | DX: Z51.81 Encounter for therapeutic drug level monitoring (principal); Z79.01 Long term (current) use of anticoagulants; I48.91 Unspecified atrial fibrillation ==

== ENCOUNTER 2024-09-14 12:00 | Outpatient (RCR) | payer MEDICARE, SELFPAY | END 2024-10-13 23:59 | disposition home or self-care (01) | LOC: MM 12:00 | PROVIDERS: Visit Provider Internal Medicine | DX: Z51.81 Encounter for therapeutic drug level monitoring (principal); Z79.01 Long term (current) use of anticoagulants; I48.91 Unspecified atrial fibrillation ==

== ENCOUNTER 2024-09-23 20:34 | Inpatient (IN) | payer MEDICARE, SELFPAY ==
[2024-09-23] VITALS (28 sets, daily range): BP systolic 113–148; BP diastolic 66–93; PULSE 103–113; TEMP 36.8; O2SAT 86–96; BMI 27.8
--- NOTE | 2024-09-23 20:42 | ECG_ITS ---
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
--- NOTE | 2024-09-23 20:42 | XR_ITS ---
The [place] [id number] Patient Name: CATERINA FINK MRN: [id number] date: 1940 Sex: M Assigned Patient Location: ER Current Patient Location: ED.MAIN Accession/Order Number: [id number] Exam Date: 09/23/2024 21:00 Report Date: 09/23/2024 22:35 At the request of: ROBERTO MCCORMACK Procedure: XR chest 1V XR chest 1V 09/23/2024 9:00 PM EST CLINICAL INDICATION: Weakness COMPARISON: None. TECHNIQUE: Portable semiupright AP view of the chest. FINDINGS: There are no tubes or implants noted. Cardiac silhouette appears mild to moderately enlarged. Diffuse interstitial opacities. No pneumothorax or pleural effusion. No displaced rib fractures. Osseous structures demonstrate degenerative changes. Soft tissues are grossly normal. XR/XR chest 1V IMPRESSION: Diffuse interstitial opacities which may represent pulmonary interstitial edema or atypical infectious etiology. Electronically authenticated by: OLMAN CISNEROS Date: 09/23/2024 22:35
--- NOTE | 2024-09-23 20:44 | ED_ITS ---
HPI HPI - General Adult General Chief complaint: Weakness Time Seen by Provider: 09/23/24 20:37 Source: patient Mode of arrival: ambulance Limitations: no limitations History of Present Illness HPI narrative: 83-year-old male presents to the emergency department because he is weak and he could not get up. He states he started to fall but really did not fall and did not injure himself in any fashion. He states that he could not get up and the paramedics were called and they convinced him to come to the hospital he states he is weak but does not have any complaints of pain. No vomiting or fever or chest pain. Symptoms seem to have started today. Related Data Home Medications ?Medication ?Instructions ?Recorded ?Confirmed amlodipine 10 mg tablet mg 09/23/24 empagliflozin 25 mg tablet mg 09/23/24 (Jardiance) furosemide 40 mg tablet mg 09/23/24 gabapentin 300 mg capsule mg 09/23/24 glimepiride 1 mg tablet mg 09/23/24 hydroxyzine HCl 25 mg tablet mg 09/23/24 lisinopril 40 mg tablet mg 09/23/24 metformin 1,000 mg tablet mg 09/23/24 pioglitazone 30 mg tablet mg 09/23/24 simvastatin 40 mg tablet mg 09/23/24 warfarin 7.5 mg tablet mg 09/23/24 Allergies Allergy/AdvReac Type Severity Reaction Status Date / Time No Known Drug Allergies Allergy Verified 09/23/24 20:39 Opioid HPI Opioid Management Most Recent Opioid Data: No Data to Display Review of Systems ROS Narrative A ten point review of systems is negative except as noted above. Exam Narrative Exam Narrative: Nurses note and vital signs reviewed and patient is not hypoxic. General: The patient appears in no acute respiratory distress. He appears generally weak. Skin: Warm, dry, no pallor noted. There is no rash noted. Head: Normocephalic, atraumatic Eye: Normal conjunctiva, no drainage Ears, Nose, Mouth, and Throat: oral mucosa is moist. Nares patent. Cardiovascular: Regular Rate and Rhythm Respiratory: Patient is in no distress, no accessory muscle use, lungs are clear to auscultation, no wheezing, rales or rhonchi Back: non-tender GI: Obese and nontender Musculoskeletal: No tenderness to his extremities Neurological: Awake alert and fully oriented Psychiatric: Cooperative Constitutional Vital Signs, click to edit/add: Last Vital Signs Temp 98.2 F 09/23/24 20:35 Pulse 112 H 09/24/24 00:23 Resp 19 09/24/24 00:23 BP 126/68 09/24/24 00:23 Pulse Ox 94 L 09/24/24 00:23 O2 Del Method Room Air 09/23/24 20:45 Course Vital Signs Vital signs: Vital Signs Temperature 98.2 F 09/23/24 20:35 Pulse Rate 110 H 09/23/24 20:35 Respiratory Rate 18 09/23/24 20:35 Blood Pressure 133/74 09/23/24 20:35 Pulse Oximetry 93 L 09/23/24 20:35 Oxygen Delivery Method Room Air 09/23/24 20:35 Temperature 98.2 F 09/23/24 20:35 Pulse Rate 112 H 09/24/24 00:23 Respiratory Rate 19 09/24/24 00:23 Blood Pressure 126/68 09/24/24 00:23 Pulse Oximetry 94 L 09/24/24 00:23 Oxygen Delivery Method Room Air 09/23/24 20:45 Medical Decision Making MDM Narrative Medical decision making narrative: The patient is found to be COVID-positive but also appears to have UTI. He does have a chronically indwelling Harrington catheter but the urine was quite cloudy and there was a lot of sediment in the tubing. Cultures are obtained and he was given IV Rocephin for the UTI. He does not seem to have any respiratory symptoms at all at this point, he does not complain of shortness of breath or cough. Chest x-ray per radiologist suggests diffuse infiltrates. Treatment diagnosis and disposition were discussed with the patient. Differential Diagnosis Differential Diagnosis: UTI, dehydration, COVID, influenza, pneumonia Lab Data Lab results reviewed: Yes I reviewed the patient's lab results Labs: Lab Results 09/23/24 09/23/24 09/23/24 Range/Units 21:00 23:11 23:34 WBC 9.1 (4.0-11.0) 10^3/uL RBC 4.70 (4.70-6.10) 10^6/uL Hgb 13.4 L (14.0-18.0) g/dL Hct 41.4 L (42.0-54.0) % MCV 88.1 (80.0-94.0) fL MCH 28.5 (25.9-34.0) pg MCHC 32.4 (29.9-35.2) g/dL RDW 15.1 H (11.0-15.0) % Plt Count 273 (150-450) 10^3/uL MPV 9.1 L (9.5-13.5) fL Neut % (Auto) 67.7 (43.0-75.0) % Lymph % (Auto) 17.8 L (20.5-60.0) % Cassia % (Auto) 13.7 H (1.7-12.0) % Eos % (Auto) 0.0 L (0.9-7.0) % Baso % (Auto) 0.4 (0.2-2.0) % Neut # (Auto) 6.2 (1.4-6.5) 10^3/uL Lymph # (Auto) 1.6 (1.2-3.8) 10^3/uL Cassia # (Auto) 1.3 H (0.3-0.8) 10^3/uL Eos # (Auto) 0.0 (0.0-0.7) 10^3/uL Baso # (Auto) 0.0 (0.0-0.1) 10^3/uL Abs Immat Gran (auto) 0.04 H (0.00-0.03) 10^3/uL Imm/Tot Granulo (auto) 0.4 (0.0-0.5) % Sodium 141 (136-145) mmol/L Potassium 4.3 (3.5-5.1) mmol/L Chloride 102 (98-107) mmol/L Carbon Dioxide 22.7 (21.0-32.0) mmol/L Anion Gap 20.6 BUN 27.0 H (7.0-18.0) mg/dL Creatinine 1.97 H (0.70-1.30) mg/dL Est GFR ( Amer) 39 L (>=60 mL/min/1.73m^2) Est GFR (Non-Af Amer) 32 L (>=60 mL/min/1.73m^2) BUN/Creatinine Ratio 13.7 Glucose 339 H (74-106) mg/dL Calcium 8.6 (8.5-10.1) mg/dL Total Bilirubin 0.2 (0.2-1.0) mg/dL Direct Bilirubin 0.1 (0.0-0.2) mg/dL AST 23 (15-37) U/L ALT 16 (16-63) U/L Alkaline Phosphatase 92 (46-116) U/L Troponin I High Sens 25.0 (4.0-76.1) pg/mL Total Protein 7.6 (6.4-8.2) g/dL Albumin 2.9 L (3.4-5.0) g/dL Globulin 4.7 g/dL Albumin/Globulin Ratio 0.6 Urine Color Yellow (YELLOW) Urine Clarity Turbid A (CLEAR) Urine pH 5.5 (5.0-9.0) Ur Specific [place] 1.010 (1.005-1.025) Urine Protein 100 A (NEG/TRACE) mg/dL Urine Glucose (UA) >=1000 A (NEGATIVE) mg/dL Urine Ketones Negative (NEGATIVE) mg/dL Urine Occult Blood Large A (NEGATIVE) Urine Nitrite Positive A (NEGATIVE) Urine Bilirubin Negative (NEGATIVE) Urine Urobilinogen 0.2 (0.2-1.0) EU/dL Ur Leukocyte Esterase Small A (NEGATIVE) Urine RBC 2-5 A (0-2) #/HPF Urine WBC >100 A (NONE SEEN) #/HPF Ur Squamous Epith Cells None seen (NONE/RARE) #/LPF Urine Crystals None seen (None Seen) #/HPF Urine Bacteria Large A (NONE SEEN) #/HPF Urine Casts None seen (NONE SEEN) #/LPF Urine Mucus Large A (NONE SEEN) Ur Culture Indicated? Yes Influenza Type A Ag Negative Influenza Type B Ag Negative SARS-CoV-2 Ag (CV2AG) Positive A (NEGATIVE) Imaging Data Chest x-ray: Radiologist's impression: ITS Impressions Chest X-Ray 09/23/24 20:42 IMPRESSION: Diffuse interstitial opacities which may represent pulmonary interstitial edema or atypical infectious etiology. Electronically authenticated by: OLMAN CISNEROS Date: 09/23/2024 22:35 ECG Data Attestation: I personally reviewed and interpreted this ECG as follows: (EKG on my interpretation shows a rate of 108 which is regular. Right bundle branch block present.) Discharge Plan Discharge Chief Complaint: Weakness Clinical Impression: COVID-19, Urinary tract infection, Generalized weakness Patient Disposition: Admitted As Inpatient Time of Disposition Decision: 00:29 Condition: Fair
--- OUTSIDE RECORDS SUMMARY | 2024-09-23 20:50 | XMS_ITS | CCD ---
Author Organization [facility] Care Team Providers Care Lottery Manager Name Role Phone BENEDICT STRONGA JDejuan Referring Unavailable AICHHOLZ, TRICE JDejuan Referring Unavailable AICHHOLZ, CONTAINER COORDINATOR TRICE Primary Care Unavailable FAWWAD, ROGERS H Attending Unavailable FAWWAD, ROGERS H Admitting Unavailable AICHHOLZ, CONTAINER COORDINATOR TRICE Primary Care Unavailable FAWWAD, ROGERS H Attending Unavailable FAWWAD, ROGERS H Admitting Unavailable AICHHOLZ, CONTAINER COORDINATOR TRICE Primary Care Unavailable FAWWAD, ROGERS H Attending Unavailable FAWWAD, ROGERS H Admitting Unavailable AICHHOLZ, CONTAINER COORDINATOR TRICE Primary Care Unavailable AICHHOLZ, CONTAINER COORDINATOR TRICE Admitting Unavailable AICHHOLZ, CONTAINER COORDINATOR TRICE Attending Unavailable AICHHOLZ, CONTAINER COORDINATOR TRICE Primary Care Unavailable DR SOURAV DODSON Consulting Unavailable NADERER, DR SOURAV Stafford Attending Unavailable DR SOURAV DODSON Admitting Unavailable AICHHOLZ, CONTAINER COORDINATOR TRICE Primary Care Unavailable AICHHOLZ, CONTAINER COORDINATOR TRICE Admitting Unavailable AICHHOLZ, CONTAINER COORDINATOR TRICE Consulting Unavailable AICHHOLZ, CONTAINER COORDINATOR TRICE Attending Unavailable AICHHOLZ, CONTAINER COORDINATOR TRICE Primary Care Unavailable FAWWAD, ROGERS H Attending Unavailable FAWWAD, ROGERS H Admitting Unavailable AICHHOLZ, CONTAINER COORDINATOR TRICE Primary Care Unavailable FAWWAD, ROGERS H Attending Unavailable FAWWAD, ROGERS H Admitting Unavailable AICHHOLZ, CONTAINER COORDINATOR TIRCE Primary Care Unavailable FAWWAD, ROGERS H Attending Unavailable FAWWAD, ROGERS H Admitting Unavailable FAWWAD, ROGERS H Attending Unavailable AICHHOLZ, CONTAINER COORDINATOR TRICE Primary Care Unavailable FAWWAD, ROGERS H Admitting Unavailable AICHHOLZ, CONTAINER COORDINATOR TRICE Primary Care Unavailable FAWWAD, ROGERS H Attending Unavailable FAWWAD, ROGERS H Admitting Unavailable AICHHOLZ, CONTAINER COORDINATOR TRICE Primary Care Unavailable FAWWAD, ROGERS H Attending Unavailable FAWWAD, ROGERS H Admitting Unavailable FAWWAD, ROGERS H Admitting Unavailable AICHHOLZ, CONTAINER COORDINATOR TRICE Primary Care Unavailable FAWWAD, ROGERS H Attending Unavailable FAWWAD, ROGERS H Admitting Unavailable FAWWAD, ROGERS H Attending Unavailable AICHHOLZ, CONTAINER COORDINATOR TRICE Primary Care Unavailable AICHHOLZ, CONTAINER COORDINATOR TRICE Primary Care Unavailable BANDAR ., GENEVIEVE Consulting Unavailable BANDAR ., GENEVIEVE Attending Unavailable BANDAR ., GENEVIEVE Admitting Unavailable GABRIELLA PULIDO Consulting Unavailable AICHHOLZ, CONTAINER COORDINATOR TRICE Primary Care Unavailable AICHHOLZ, CONTAINER COORDINATOR TRICE Consulting Unavailable AICHHOLZ, CONTAINER COORDINATOR TRICE Attending Unavailable AICHHOLZ, CONTAINER COORDINATOR TRICE Admitting Unavailable AICHHOLZ, CONTAINER COORDINATOR TRICE Primary Care Unavailable AICHHOLZ, CONTAINER COORDINATOR TRICE Consulting Unavailable AICHHOLZ, CONTAINER COORDINATOR TRICE Attending Unavailable AICHHOLZ, CONTAINER COORDINATOR TRICE Admitting Unavailable Aichholz TOOLMAKER HELPER, Trice Unavailable Sourav Dodson MD Primary Care Provider [phone] AICHHOLZ, TRICE Attending Unavailable AICHHOLZ, TRICE Attending Unavailable AICHHOLZ, TRICE J Referring Unavailable SOURAV DODSON Primary Care Unavailable AICHHOLZ, TRICE J Referring Unavailable SOURAV DODSON Primary Care Unavailable AICHHOLZ, TRICE J Referring Unavailable SOURAV DODSON Primary Care Unavailable Aichholz TOOLMAKER HELPER, Trice Unavailable Sourav Dodson MD Primary Care Provider Aichholz TOOLMAKER HELPER, Trice Unavailable Zaira Lance LPN Unavailable Unavailable Aichholz TOOLMAKER HELPER, Trice Unavailable Medications Current Medications Medication Drug Class(es) Dates Sig (Normalized) Sig (Original) amLODIPine 10 mg oral tablet (7 sources) Dihydropyridine Calcium Channel Jake Start: 06-11-2024 End: 12-16-2024 take 1 tablet by mouth once daily amLODIPine (Norvasc) 10 MG tablet Indications: Primary hypertension (CMS/[facility]) Take 1 tablet (10 mg) by mouth Daily 90 tablet 1 09/17/2024 12/16/2024 Active take 1 tablet by mouth in the mo rning amLODIPine (Norvasc) 10 MG tablet Take 1 tablet by mouth in the morning. 0 Active ciprofloxacin 500 mg oral tablet (1 source) Quinolone Antimicrobial Start: 08-10-2024 End: 08-17-2024 take 1 tablet by mouth in the morning ciprofloxacin (Cipro) 500 MG tablet Indications: Urinary tract infection associated with indwelling urethral catheter, sequela Take 1 tablet (500 mg) by mouth in the morning and 1 tablet (500 mg) before bedtime. Do all this for 7 days. 14 tablet 08/10/2024 08/17/2024 Active clobetasol propionate 0.5 mg/ml topical cream (6 sources) Corticosteroid clobetasol (Temovate) 0.05 % cream Apply 1 application topically every 12 (twelve) hours Active Continuous Blood Gluc Sensor (FreeStyle Abi 14 Day Sensor) misc (2 sources) Start: 10-17-2023 Continuous Blood Gluc Sensor (FreeStyle Abi 14 Day Sensor) [facility] [place] Indications: Type 2 diabetes mellitus with other specified complication, without long-term current use of insulin ([facility]) 1 each in the morning. Change sensor every 14 days. 2 each 12 10/17/2023 Active Continuous Glucose Graphic Production Artist (FreeStyle Abi 2 [place]) device (4 sources) Start: 06-18-2024 End: 09-26-2024 Continuous Glucose Graphic Production Artist (FreeStyle Abi 2 [place]) device Indications: Type 2 diabetes mellitus with other specified complication, without long-term current use of insulin ([facility]) 1 each Daily 1 each 1 06/18/2024 09/26/2024 Active Continuous Glucose Sensor (FreeStyle Abi 2 Sensor) misc (2 sources) Start: 09-20-2024 End: 10-18-2024 Continuous Glucose Sensor (FreeStyle Abi 2 Sensor) [facility] [place] Indications: Type 2 diabetes mellitus with other specified complication, without long-term current use of insulin ([facility]) 1 each Daily for 28 days 2 each 11 09/20/2024 10/18/2024 Active End: 09-20-2024 Continuous Glucose Sensor (F reeStyle Abi 2 Sensor) misc 1 each Daily 09/20/2024 Discontinued (Reorder) empagliflozin 25 mg oral tablet (7 sources) Sodium-Glucose Cotransporter 2 Inhibitor Start: 06-11-2024 End: 12-16-2024 take 1 tablet by mouth once daily empagliflozin (Jardiance) 25 MG Indications: Type 2 diabetes mellitus with other specified complication, without long-term current use of insulin (CMS/HCC) Take 1 tablet (25 mg) by mouth Daily 90 tablet 1 09/17/2024 12/16/2024 Active Start: 10-11-2023 take 1 tablet by joo th in the morning Jardiance 25 MG Take 1 tablet by mouth in the morning. 0 10/11/2023 Active furosemide 40 mg oral tablet (7 sources) Loop Diuretic Start: 06-11-2024 End: 12-16-2024 take 1 tablet by mouth in the morning furosemide (Lasix) 40 MG tablet Indications: Bilateral lower extremity edema Take 1 tablet (40 mg) by mouth in the morning. 90 tablet 1 09/17/2024 12/16/2024 Active Start: 12-02-2023 End: 03-01-2024 take 1 tablet by mouth in the morning furosemide (Lasix) 40 MG tablet Indications: Bilateral lower extremity edema Take 1 tablet (40 mg) by mouth in the morning. 90 tablet 0 12/02/2023 03/01/2024 Active gabapentin 300 mg oral capsule (7 sources) Anti-epileptic Agent Start: 06-28-2024 End: 12-16-2024 take 1 capsule by mouth in the morning gabapentin (Neurontin) 300 MG capsule Indications: Chronic painful diabetic neuropathy (CMS/HCC) , Lumbar spondylosis Take 1 capsule (300 mg) by mouth in the morning and 1 capsule (300 mg) before bedtime. 180 capsule 1 09/17/2024 12/16/2024 Active take 1 capsule by mo uth in the morning, then take 1 capsule by mouth in the evening, then take 1 capsule by mouth at bedtime gabapentin (Neurontin) 100 MG capsule Ta ke 1 capsule by mouth in the morning and 1 capsule in the evening and 1 capsule before bedtime. 0 Active glimepiride 1 mg oral tablet (8 sources) Sulfonylurea Start: 03-08-2024 End: 09-17-2024 glimepiride (Amaryl) 1 MG tablet Indications: Type 2 diabetes mellitus with other specified complication, without long-term current use of insulin (CMS/[facility]) 1 pill with breakfast, and 2 pills with supper time1 pill with breakfast, and 2 pills with supper time 270 tablet 1 09/17/2024 Active take 1 tablet by joo th in the morning, then take 1 tablet by mouth in the evening, then take 1 tablet by mouth at bedtime glimepiride (Amaryl) 1 MG tablet Take 1 tablet by mouth in the morning and 1 tablet in the evening and 1 tablet before bedtime. 0 Active hydrOXYzine hydrochloride 25 mg oral tablet (6 sources) Antihistamine Start: 06-11-2024 End: 09-09-2024 take 1 tablet by mouth every eight hours hydrOXYzine HCl (Atarax) 25 MG tablet Indications: Pruritus Take 1 tablet (25 mg) by mouth every 8 (eight) hours if needed for itching 270 tablet 1 06/11/2024 Active Start: 11-24-2023 End: 02-22-2024 take 1 tablet by mouth every eight hours hydrOXYzine HCl (Atarax) 25 MG tablet Indications: Pruritus Take 1 tablet (25 mg) by mouth every 8 (eight) hours if needed for itching 270 tablet 1 11/24/2023 02/22/2024 Active lisinopril 40 mg oral tablet (7 sources) Angiotensin Converting Enzyme Inhibitor Start: 06-11-2024 End: 12-16-2024 take 1 tablet by mouth once daily lisinopril 40 MG tablet Indications: Primary hypertension (CMS/HCC) Take 1 tablet (40 mg) by mouth Daily 90 tablet 1 09/17/2024 12/16/2024 Active take 1 tablet by mouth in the mo rning lisinopril 40 MG tablet Take 1 tablet by mouth in the morning. 0 Active loratadine 10 mg oral tablet (6 sources) take 1 tablet by mouth once daily loratadine (Claritin) 10 MG tablet Take 1 tablet by mouth 1 (one) time each day at the same time Active metFORMIN hydrochloride 1000 mg oral tablet (7 sources) Biguanide Start: 06-11-2024 End: 12-16-2024 take 1 tablet by mouth in the morning, then take 1 tablet by mouth at mealtime, then take 1 tablet by mouth in the morning, then take 1 tablet by mouth in the evening metFORMIN (Glucophage) 1000 MG tablet Indications: Type 2 diabetes mellitus with other specified complication, without long-term current use of insulin (CMS/HCC) Take 1 tablet (1,000 mg) by mouth in the morning and 1 tablet (1,000 mg) in the evening. Take with meals. Take 1 tablet by mouth in the morning and 1 tablet in the evening. Take with meals.. 180 tablet 1 09/17/2024 12/16/2024 Active Start: 11-24-2023 End: 02-22-2024 take 1 tablet by mouth in the morning, then take 1 tablet by mouth at mealtime, then take 1 tablet by mouth in the morning, then take 1 tablet by mouth in the evening metFORMIN (Glucophage) 1000 MG tablet Indications: Type 2 diabetes mellitus with other specified complication, without long-term current use of insulin (CMS/HCC) Take 1 tablet (1,000 mg) by mouth in the morning and 1 tablet (1,000 mg) in the evening. Take with meals. Take 1 tablet by mouth in the morning and 1 tablet in the evening. Take with meals.. 180 tablet 1 11/24/2023 02/22/2024 Active pioglitazone 30 mg oral tablet (7 sources) Peroxisome Proliferator Receptor alpha Agonist, Peroxisome Proliferator Receptor gamma Agonist, Thiazolidinedione Start: 06-11-2024 End: 12-16-2024 take 1 tablet by mouth in the morning pioglitazone (Actos) 30 MG tablet Indications: Type 2 diabetes mellitus with other specified complication, without long-term current use of insulin (CMS/HCC) Take 1 tablet (30 mg) by mouth in the morning. 90 tablet 1 09/17/2024 12/16/2024 Active Start: 10-07-2023 take 1 tablet by joo th in the morning pioglitazone (Actos) 30 MG tablet Take 1 tablet by mouth in the morning. 0 10/07/2023 Active simvastatin 40 mg oral tablet (8 sources) HMG-CoA Reductase Inhibitor Start: 06-11-2024 End: 12-16-2024 take 1 tablet by mouth in the evening simvastatin (Zocor) 40 MG tablet Indications: Mixed hyperlipidemia (CMS/HCC) Take 1 tablet (40 mg) by mouth in the evening 90 tablet 1 09/17/2024 12/16/2024 Active take 1 tablet by joo th at bedtime simvastatin (Zocor) 40 MG tablet Indications: Hyperlipidemia Take 40 mg by mouth at bedtime 0 Active End: 12-22-2023 take 1 tablet by mouth in the morning simvastatin (Zocor) 20 MG tablet Take 1 tablet by mouth in the morning. 0 12/22/2023 Discontinued (Ineffective) terbinafine hydrochloride 10 mg/ml topical cream (6 sources) Allylamine Antifungal Start: 08-19-2023 terbinafine (LamISIL) 1 % cream Apply 1 application topically in the morning and 1 application before bedtime. X 2-3 weeks, prn for flares. 08/19/2023 Active warfarin sodium 7.5 mg oral tablet (6 sources) Vitamin K Antagonist Start: 08-09-2023 take 1 tablet by mouth once daily warfarin (Coumadin) 7.5 MG tablet Take 7.5 mg by mouth 1 (one) time each day 08/09/2023 Active Problems Active Problems Problem Classification Problem Date Documented Date Episodic/Chronic Cardiac dysrhythmias (16 sources) Paroxysmal atrial fibrillation; Translations: [Unspecified atrial fibrillation] Onset: 09-03-2022 Chronic Diabetes mellitus with complications (11 sources) Type 2 diabetes mellitus; Translations: [Type 2 diabetes mellitus with other specified complication] Onset: 01-11-2024 12-22-2023 Chronic Diabetes mellitus without complication (10 sources) Type 2 diabetes mellitus without complications; Translations: [Diabetes mellitus] Onset: 03-02-2023 Chronic Disorders of lipid metabolism (10 sources) Pure hypercholesterolemia , unspecified; Translations: [Hyperlipidemia] Onset: 12-06-2022 11-24-2023 Chronic Esophageal disorders (1 source) Gastro-esophageal reflux disease without esophagitis; Translations: [GERD WITHOUT ESOPHAGITIS] Onset: 12-06-2022 Chronic Essential hypertension (11 sources) Essential (primary) hypertension; Translations: [Hypertensive disorder] Onset: 12-06-2022 11-24-2023 Chronic Genitourinary symptoms and ill-defined conditions (4 sources) Encounter for fitting and adjustment of urinary device; Translations: [END FITTING AND ADJUST URINARY DEVICE] Onset: 12-02-2022 Chronic Hyperplasia of prostate (1 source) Benign prostatic hyperplasia without lower urinary tract symptoms; Translations: [BENIGN PROSTATIC HYPRPLASIA WO LUTS] Onset: 12-06-2022 Chronic Mood disorders (6 sources) Depressive disorder; Translations: [Depression] Onset: 12-22-2023 12-22-2023 Chronic Osteoarthritis (6 sources) Arthritis; Translations: [Unspecified osteoarthritis, unspecified site] Onset: 12-22-2023 12-22-2023 Chronic Other aftercare (5 sources) Encounter for therapeutic drug level monitoring; Translations: [ENC THERAPEUTC DRUG LEVL MONITORING] Onset: 03-12-2023 Episodic Other aftercare (1 source) intermediate (current) use of anticoagulants; Translations: [SKILLED NURSING CURRNT USE ANTICOAGULANTS] Onset: 04-13-2023 Episodic Other diseases of bladder and urethra (7 sources) Neurogenic bladder; Translations: [Neuromuscular dysfunction of bladder, unspecified] Onset: 01-08-2020 12-22-2023 Chronic Other diseases of bladder and urethra (1 source) Neuromuscular dysfunction of bladder, unspecified; Translations: [Neuromuscular dysfunction of bladder, unspecified] Onset: 07-10-2024 Chronic Other nutritional; endocrine; and metabolic disorders (6 sources) Obesity; Translations: [Obesity, unspecified] Onset: 12-22-2023 12-22-2023 Chronic Other nutritional; endocrine; and metabolic disorders (6 sources) Body mass index 30+ - obesity; Translations: [Body mass index (BMI) 30.0-30.9, adult] Onset: 12-22-2023 12-22-2023 Chronic Other skin disorders (4 sources) Lesion of skin of nose; Translations: [Disorder of the skin and subcutaneous tissue, unspecified] Onset: 06-28-2024 06-28-2024 Episodic Residual codes; unclassified (4 sources) Dependence on wheelchair; Translations: [Dependence on wheelchair] Onset: 11-14-2023 06-28-2024 Chronic Spondylosis; intervertebral disc disorders; other back problems (7 sources) Lumbar spondylosis; Translations: [Spondylosis without myelopathy or radiculopathy, lumbar region] Onset: 03-14-2019 12-22-2023 Chronic Past or Other Problems Problem Classification Problem Date Documented Da te Episodic/Chronic Complication of device; implant or graft (4 sources) Urinary tract infectious disease; Translations: [Infection and inflammatory reaction due to indwelling urethral catheter, initial encounter] Onset: 01-17-2024 08-10-2024 Episodic Deficiency and other anemia (6 sources) Anemia; Translations: [Anemia, unspecified] Onset: 12-22-2023 12-22-2023 Episodic Other aftercare (1 source) Other dedicated intermodal truck driver (current) drug therapy; Translations: [OTH SKILLED NURSING CURRENT DRUG THERAPY] Onset: 12-06-2022 Episodic Other aftercare (1 source) 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) use of oral hypoglycemic drugs; Translations: [SKILLED NURSING USE ORAL HYPOGLYCEMIC DX] Onset: 12-06-2022 Episodic Other inflammatory condition of skin (6 sources) Pruritus, unspecified; Translations: [Unspecified pruritic disorder] Onset: 11-24-2023 11-24-2023 Episodic Other lower respiratory disease (1 source) Personal history of pneumonia (recurrent); Translations: [PERSONAL HX OF PNEUMONIA RECURRENT] Onset: 12-06-2022 Episodic Phlebitis; thrombophlebitis and thromboembolism (1 source) Personal history of other venous thrombosis and embolism; Translations: [PERS HX OTH VENOUS THROMBOSIS AND EMBO] Onset: 12-06-2022 Episodic Residual codes; unclassified (8 sources) Bilateral lower limb edema; Translations: [Localized edema] Onset: 12-02-2023 12-02-2023 Episodic Unclassified (5 sources) Onset: 12-22-2023 12-22-2023 Urinary tract infections (4 sources) Urinary tract infection, site not specified; Translations: [UTI SITE NOT SPECIFIED] Onset: 06-10-2022 Episodic Results Test Name Value Interpretation Reference Range Facility URINALYSISon 08-07-2024 Amorphous sediment LM Ql (Urine sed) PRESENT Abnormal NONE [facility] Comment on above: Performed By: #### C SHANELL, CBCA #### [facility] ([id number]) [address] [place] [address], [place] [address] #### [id number] #### [facility] ([id number]) [address] [place] [address], [address] [place] [address] Bilirubin Ql (U) Negative Normal NEG [facility] Comment on above: Performed By: #### C MP, CBCA #### [facility] ([id number]) [address] [place] [address] #### [id number] #### [facility] ([id number]) [address], [address] [place] [address] BLOOD/HGB SMALL Abnormal NEG [facility] Comment on above: Performed By: #### Gricel REECE CBCA #### [facility] ([id number]) [address] [place] [address] #### [id number] #### [facility] ([id number]) [address], [address] [place] [address] Color (U) YELLOW Normal YELLOW [facility] Comment on above: Performed By: #### Gricel REECE CBCA #### [facility] ([id number]) [address] [place] [address] #### [id number] #### [facility] ([id number]) [address], [address] [place] [address] EPITHELIAL CASTS 5 to 10 Normal 0 [facility] Comment on above: Performed By: #### Gricel REECE, CBCA #### [facility] ([id number]) [address] [place] [address] #### [id number] #### [facility] ([id number]) [address], [address] [place] [address] Glucose Ql (U) 500 mg/dL Abnormal NEG [facility] Comment on above: Performed By: #### Gricel REECE CBCA #### [facility] ([id number]) [address] [place] [address] #### [id number] #### [facility] ([id number]) [address], [address] [place] [address] Ketones Ql (U) Negative Normal NEG [facility] Comment on above: Performed By: #### C MP, CBCA #### [facility] ([id number]) [address] [place] [address] #### [id number] #### [facility] ([id number]) [address], [address] [place] [address] Leukocyte esterase Test strip Ql (U) SMALL Abnormal NEG [facility] Comment on above: Performed By: #### C MP, CBCA #### [facility] ([id number]) [address] [place] [address] #### [id number] #### [facility] ([id number]) [address], [address] [place] [address] Nitrite Ql (U) Negative Normal NEG [facility] Comment on above: Performed By: #### C SHANELL, CBCA #### [facility] ([id number]) [address] [place] [address] #### [id number] #### [facility] ([id number]) [address], [address] [place] [address] pH (U) 6.0 [pH] Normal 5.0-8.5 [facility] Comment on above: Performed By: #### C MP, CBCA #### [facility] ([id number]) [address] [place] [address] #### [id number] #### [facility] ([id number]) [address], [address] [place] [address] Protein Ql (U) 100 mg/dL Abnormal NEG [facility] Comment on above: Performed By: #### C MP, CBCA #### [facility] ([id number]) [address] [place] [address] #### [id number] #### [facility] ([id number]) [address], [address] [place] [address] R.B.CELLS 5 to 10 Normal 0-5 [facility] Comment on above: Performed By: #### Gricel REECE CBCA #### [facility] ([id number]) [address] [place] [address] #### [id number] #### [facility] ([id number]) [address] [place] [address] Specific gravity (U) [Rel density] 1.015 Normal 1.003-1.035 [facility] Comment on above: Performed By: #### Gricel REECE CBCA #### [facility] ([id number]) [address] [place] [address] #### [id number] #### [facility] ([id number]) [address] [place] [address] TURBIDITY CLEAR Normal CLEAR [facility] Comment on above: Performed By: #### Gricel REECE CBCA #### [facility] ([id number]) [address] [place] [address] #### [id number] #### [facility] ([id number]) [address] [place] [address] Urobilinogen Qn (U) 0.2 {Laurie'U}/dL Normal <1.1 [facility] Comment on above: Performed By: #### Gricel REECE CBCA #### [facility] ([id number]) [address] [place] [address] #### [id number] #### [facility] ([id number]) [address], [address] [place] [address] W.B.CELLS 10 to 20 Normal 0-5 [facility] Comment on above: Performed By: #### Gricel REECE CBCA #### [facility] ([id number]) [address] [place] [address] #### [id number] #### [facility] ([id number]) [address], [address] [place] [address] URINE CULTUREon 08-07-2024 Bacteria identified Cx Nom (U) CULTURE RESULTS >100,000 ORGANISMS/mL CITROBACTER FREUNDII [ S = SUSCEPTIBLE R = RESISTANT I = INTERMEDIATE S-DO = Susceptible-dose dependent NS = Non-suscceptible NO = No Interpretation ] Organism: CITROBACTER FREUNDII Antibiotic Interpretation HENNY Status CEFAZOLIN R >=64 F CEFTRIAXONE S <=0.25 F CIPROFLOXACIN S <=0.25 F GENTAMICIN S <=1 F LEVOFLOXACIN I 1 F NITROFURANTOIN S <=16 F PIPERACIL/TAZOBACTAM S <=4 F TOBRAMYCIN S <=1 F TRIMETH/SULFAMETHOXA ZOLE S <=1/19 F Susceptible [facility] Comment on above: Performed By: #### C SHANELL CBCA #### [facility] ([id number]) [address] [place] [address] #### [id number] #### [facility] ([id number]) [address] [place] [address] CBC AND AUTO DIFFon 07-10-20 ABSOLUTE BASOPHIL 0.0 X10E9/L Normal 0.0-0.2 [facility] Comment on above: Performed By: #### C BCA, CMP #### [facility] ([id number]) [address] [place] [address] 30981 #### HA1C #### [facility] ([id number]) [address], [address] [place] [address] ABSOLUTE NEUTROPHIL 5.9 X10E9/L Normal 1.5-6.6 [facility] Comment on above: Performed By: #### C BCA, CMP #### [facility] ([id number]) [address] [place] [address] 24143 #### HA1C #### [facility] ([id number]) [address], [address] [place] [address] Basophils/100 WBC (Bld) 0.5 % Normal [facility] Comment on above: Performed By: #### C BCA, CMP #### [facility] ([id number]) [address] [place] [address] 94258 #### HA1C #### [facility] ([id number]) [address] [facility] [place] [address] Eosinophils (Bld) [#/Vol] 0.2 10*3/uL Normal 0.0-0.4 [facility] Comment on above: Performed By: #### C BCA, CMP #### [facility] ([id number]) [address] [place] [address] 32418 #### HARoma #### [facility] ([id number]) [address] [place] [address] Eosinophils/100 WBC (Bld) 2.0 % Normal [facility] Comment on above: Performed By: #### C BCA, CMP #### [facility] ([id number]) [address] [place] [address] 17104 #### HA1C #### [facility] ([id number]) [address], [address] [place] [address] Erythrocyte distribution width (RBC) [Ratio] 16.1 % High 11.5-15.0 [facility] Comment on above: Performed By: #### C BCA, CMP #### [facility] ([id number]) [address] [place] [address] 82339 #### HA1C #### [facility] ([id number]) [address], [address] [place] [address] Hematocrit (Bld) [Volume fraction] 40.4 % Normal 39-49 [facility] Comment on above: Performed By: #### C BCA, CMP #### [facility] ([id number]) [address] [place] [address] 26387 #### HA1C #### [facility] ([id number]) [address] [place] [address] Hemoglobin (Bld) [Mass/Vol] 13.2 g/dL Normal 13.0-17.0 [facility] Comment on above: Performed By: #### C BCA, CMP #### [facility] ([id number]) [address] [place] [address] 54586 #### HA1C #### [facility] ([id number]) [address] [place] [address] Lymphocytes (Bld) [#/Vol] 2.2 10*3/uL Normal 1.0-3.5 [facility] Comment on above: Performed By: #### C BCA, CMP #### [facility] ([id number]) [address] [place] [address] 55193 #### HA1C #### [facility] ([id number]) [address] [place] [address] Lymphocytes/100 WBC (Bld) 24.1 % Normal [facility] Comment on above: Performed By: #### C BCA, CMP #### [facility] ([id number]) [address] [place] [address] 57101 #### HA1C #### [facility] ([id number]) [address] [place] [address] MCH (RBC) [Entitic mass] 28.3 pg Normal 27-34 [facility] Comment on above: Performed By: #### C BCA, CMP #### [facility] ([id number]) [address] [place] [address] 65599 #### HA1C #### [facility] ([id number]) [address] [place] [address] MCHC (RBC) [Mass/Vol] 32.8 g/dL Normal 32-36 [facility] Comment on above: Performed By: #### C BCA, CMP #### [facility] ([id number]) [address] [place] [address] 41878 #### HA1C #### [facility] ([id number]) [address], [address] [place] [address] MCV (RBC) [Entitic vol] 86 fL Normal 80-100 [facility] Comment on above: Performed By: #### C BCA, CMP #### [facility] ([id number]) [address] [place] [address] 30762 #### HA1C #### [facility] ([id number]) [address], [address] [place] [address] Monocytes (Bld) [#/Vol] 0.7 10*3/uL Normal 0-0.9 [facility] Comment on above: Performed By: #### C BCA, CMP #### [facility] ([id number]) [address] [place] [address] 58299 #### HA1C #### [facility] ([id number]) [address], [address] [place] [address] Monocytes/100 WBC (Bld) 8.2 % Normal [facility] Comment on above: Performed By: #### C BCA, CMP #### [facility] ([id number]) [address] [place] [address] 24181 #### HA1C #### [facility] ([id number]) [address] [place] [address] Neutrophils/100 WBC (Bld) 65.2 % Normal [facility] Comment on above: Performed By: #### C BCA, CMP #### [facility] ([id number]) [address] [place] [address] 35482 #### HA1C #### [facility] ([id number]) [address] [place] [address] Platelet mean volume (Bld) [Entitic vol] 7.6 fL Normal 7-12 [facility] Comment on above: Performed By: #### C BCA, CMP #### [facility] ([id number]) [address] [place] [address] 60263 #### HA1C #### [facility] ([id number]) [address] [place] [address] Platelets (Bld) [#/Vol] 262 10*3/uL Normal 150-450 [facility] Comment on above: Performed By: #### C BCA, CMP #### [facility] ([id number]) [address] [place] [address] 22326 #### HA1C #### [facility] ([id number]) [address] [place] [address] RBC COUNT 4.68 X10E12/L Normal 4.10-5.70 [facility] Comment on above: Performed By: #### C BCA, CMP #### [facility] ([id number]) [address] [place] [address] 43072 #### HA1C #### [facility] ([id number]) [address], [address] [place] [address] WBC (Bld) [#/Vol] 9.0 10*3/uL Normal 4.0-11.0 [facility] Comment on above: Performed By: #### C BCA, CMP #### [facility] ([id number]) [address] [place] [address] 48403 #### HA1C #### [facility] ([id number]) [address], [address] [place] [address] COMPREHENSIVE METABOLIC PANE Jeff 07-10-2024 Albumin [Mass/Vol] 3.7 g/dL Normal 3.2-5.3 [facility] Comment on above: Performed By: #### C BCA, CMP #### [facility] ([id number]) [address] [place] [address] 04817 #### HA1C #### [facility] ([id number]) [address], [address] [place] [address] ALP [Catalytic activity/Vol] 72 U/L Normal 39-130 [facility] Comment on above: Performed By: #### C BCA, CMP #### [facility] ([id number]) [address] [place] [address] 03729 #### HA1C #### [facility] ([id number]) [address] [place] [address] ALT [Catalytic activity/Vol] 19 U/L Normal 0-40 [facility] Comment on above: Performed By: #### C BCA, CMP #### [facility] ([id number]) [address] [place] [address] 81552 #### HA1C #### [facility] ([id number]) [address] [place] [address] Anion gap [Moles/Vol] 10 mmol/L Normal 5-15 [facility] Comment on above: Performed By: #### C BCA, CMP #### [facility] ([id number]) [address] [place] [address] 77408 #### HA1C #### [facility] ([id number]) [address] [place] [address] AST [Catalytic activity/Vol] 24 U/L Normal 0-41 [facility] Comment on above: Performed By: #### C BCA, CMP #### [facility] ([id number]) [address] [place] [address] 52358 #### HA1C #### [facility] ([id number]) [address] [place] [address] Bilirubin [Mass/Vol] 0.4 mg/dL Normal 0.3-1.2 [facility] Comment on above: Performed By: #### C BCA, CMP #### [facility] ([id number]) [address] [place] [address] 23692 #### HA1C #### [facility] ([id number]) [address], [address] [place] [address] Calcium [Mass/Vol] 8.7 mg/dL Normal 8.5-10.5 [facility] Comment on above: Performed By: #### C BCA, CMP #### [facility] ([id number]) [address] [place] [address] 75832 #### HA1C #### [facility] ([id number]) [address] [place] [address] Chloride [Moles/Vol] 101 mmol/L Normal 98-109 [facility] Comment on above: Performed By: #### C BCA, CMP #### [facility] ([id number]) [address] [place] [address] 99659 #### HA1C #### [facility] ([id number]) [address] [facility] [place] [address] CO2 [Moles/Vol] 23 mmol/L Normal 22-32 [facility] Comment on above: Performed By: #### C BCA, CMP #### [facility] ([id number]) [address] [place] [address] 14040 #### HA1C #### [facility] ([id number]) [address] [facility] [place] [address] Creatinine [Mass/Vol] 1.31 mg/dL High 0.70-1.20 [facility] Comment on above: Result Comment: METH OD TRACEABLE TO IDMS STANDARD Performed By: #### C BCA, CMP #### [facility] ([id number]) [address] [place] [address] 22088 #### HA1C #### [facility] ([id number]) [address] [facility] [place] [address] GFR/1.73 sq M.predicted among non-blacks MDRD (S/P/Bld) [Vol rate/Area] 53 mL/min/{1.73_m2} Low >59 [facility] Comment on above: Result Comment: Reported eGFR is based on the CKD-EPI 2020 equation that does not use a race coefficient. Performed By: #### C BCA, CMP #### [facility] ([id number]) [address] [place] [address] 19545 #### HA1C #### [facility] ([id number]) [address] [facility], [address] [place] [address] Glucose [Mass/Vol] 141 mg/dL High 65-99 [facility] Comment on above: Performed By: #### C BCA, CMP #### [facility] ([id number]) [address] [place] [address] 56638 #### HA1C #### [facility] ([id number]) [address] [place] [address] Potassium [Moles/Vol] 4.2 mmol/L Normal 3.5-5.0 [facility] Comment on above: Performed By: #### C BCA, CMP #### [facility] ([id number]) [address] [place] [address] 89625 #### HA1C #### [facility] ([id number]) [address], [address] [place] [address] Protein [Mass/Vol] 7.8 g/dL Normal 6.0-8.0 [facility] Comment on above: Performed By: #### C BCA, CMP #### [facility] ([id number]) [address] [place] [address] 67248 #### HA1C #### [facility] ([id number]) [address] [place] [address] Sodium [Moles/Vol] 134 mmol/L Normal 134-146 [facility] Comment on above: Performed By: #### C BCA, CMP #### [facility] ([id number]) [address] [place] [address] 90625 #### HA1C #### [facility] ([id number]) [address] [place] [address] Urea nitrogen [Mass/Vol] 27 mg/dL Normal 5-27 [facility] Comment on above: Performed By: #### C BCA, CMP #### [facility] ([id number]) [address] [place] [address] 57581 #### HA1C #### [facility] ([id number]) [address] [place] [address] HGB A1C (GLYCO-HGB)on 2023 Glucose [Mass/Vol] 160 mg/dL Normal [facility] Comment on above: Performed By: #### C BCA, CMP #### [facility] ([id number]) [address] [place] [address] 01602 #### HA1C #### [facility] ([id number]) [address] [facility] [facility] [address] [place] [address] HbA1c (Bld) [Mass fraction] 7.2 % High 4.4-5.6 [facility] Comment on above: Result Comment: NOTE ADA Guidelines Result HgbA1c Normal : less than 5.7 % Prediabetes : 5.7 % to 6.4 % Diabetes : > 6.4 % Use with caution in patients with abnormal hemoglobin variants as the half-life of red blood cells and in vivo glycation rates are affected. Performed By: #### C BCA, CMP #### [facility] ([id number]) [address] [place] [address] 68984 #### HA1C #### [facility] ([id number]) [address] [facility], [address] [address] URINALYSISon 07-10-2024 Bilirubin Ql (U) Negative Normal NEG [facility] Comment on above: Performed By: #### C SHANELL, CBCA #### [facility] ([id number]) [address] [place] [address] 05792 #### 08847-4 #### [facility] ([id number]) [address] [facility], [address] [address] BLOOD/HGB SMALL Abnormal NEG [facility] Comment on above: Performed By: #### Gricel REECE, CBCA #### [facility] ([id number]) [address] [place] [address] 73043 #### 64685-9 #### [facility] ([id number]) [address] [place] [address] Color (U) YELLOW Normal YELLOW [facility] Comment on above: Performed By: #### C SHANELL, CBCA #### [facility] ([id number]) [address] [place] [address] 75041 #### 99317-7 #### [facility] ([id number]) [address] [place] [address] Glucose Ql (U) >1000 Abnormal NEG [facility] Comment on above: Performed By: #### C SHANELL, CBCA #### [facility] ([id number]) [address] [place] [address] 35650 #### [id number] #### [facility] ([id number]) [address] [place] [address] Ketones Ql (U) Negative Normal NEG [facility] Comment on above: Performed By: #### C SHANELL, CBCA #### [facility] ([id number]) [address] [place] [address] 61748 #### 95351-6 #### [facility] ([id number]) [address] [place] [address] Leukocyte esterase Test strip Ql (U) MODERATE Abnormal NEG [facility] Comment on above: Result Comment: HIGH CONCENTRATIONS OF GLUCOSE MAY DECREASE THE REACTIVITY OF THE DIPSTICK LEUKOCYTE TEST PAD. Performed By: #### C SHANELL, CBCA #### [facility] ([id number]) [address] [place] [address] 87393 #### [id number] #### [facility] ([id number]) [address] [place] [address] Nitrite Ql (U) Positive Abnormal NEG [facility] Comment on above: Performed By: #### Gricel REECE CBCA #### [facility] ([id number]) [address] [place] [address] 97283 #### 11670-4 #### [facility] ([id number]) [address] [place] [address] pH (U) 6.0 [pH] Normal 5.0-8.5 [facility] Comment on above: Performed By: #### Gricel REECE CBCA #### [facility] ([id number]) [address] [place] [address] 94251 #### 31099-8 #### [facility] ([id number]) [address] [place] [address] Protein Ql (U) Negative Normal NEG [facility] Comment on above: Performed By: #### Gricel REECE CBCA #### [facility] ([id number]) [address] [place] [address] 86163 #### 89643-6 #### [facility] ([id number]) [address] [place] [address] R.B.CELLS 6 /hpf High 0-5 [facility] Comment on above: Performed By: #### Gricel REECE CBCA #### [facility] ([id number]) [address] [place] [address] 92939 #### 31225-3 #### [facility] ([id number]) [address] [place] [address] Specific gravity (U) [Rel density] 1.020 Normal 1.003-1.035 [facility] Comment on above: Performed By: #### Gricel REECE CBCA #### [facility] ([id number]) [address] [place] [address] 84136 #### 28943-9 #### [facility] ([id number]) [address] [place] [address] SQUAMOUS EPITHELIUM 2 /hpf Normal 0-5 [facility] Comment on above: Performed By: #### C SHANELL, CBCA #### [facility] ([id number]) [address] [place] [address] 37266 #### 04081-6 #### [facility] ([id number]) [address] [place] [address] TURBIDITY CLEAR Normal CLEAR [facility] Comment on above: Performed By: #### C SHANELL, CBCA #### [facility] ([id number]) [address] [place] [address] 97085 #### 00852-4 #### [facility] ([id number]) [address] [place] [address] Urobilinogen Qn (U) 0.2 {Laurie'U}/dL Normal <1.1 [facility] Comment on above: Performed By: #### C SHANELL, CBCA #### [facility] ([id number]) [address] [place] [address] 70427 #### 66134-8 #### [facility] ([id number]) [address] [place] [address] W.B.CELLS 10 /hpf High 0-5 [facility] Comment on above: Performed By: #### C SHANELL, CBCA #### [facility] ([id number]) [address] [place] [address] 19927 #### 55976-7 #### [facility] ([id number]) [address] [place] [address] WBC CLUMPS MANY Abnormal NONE [facility] Comment on above: Performed By: #### C SHANELL CBCA #### [facility] ([id number]) [address] [place] [address] 31561 #### 55145-4 #### [facility] ([id number]) [address] [place] [address] URINE CULTUREon 07-10-2024 Bacteria identified Cx Nom (U) CULTURE RESULTS >100,000 ORGANISMS/mL CITROBACTER FREUNDII 50,000 to 100,000 ORGANISMS/mL KLEBSIELLA OXYTOCA MULTIPLE SPECIES PRESENT. PROBABLE COLLECTION CONTAMINATION. SUGGEST REPEAT SPECIMEN. MIXED GRAM POSITIVE AND GRAM NEGATIVE ORGANISMS Normal [facility] Comment on above: Performed By: #### C SHANELL CBCA #### [facility] ([id number]) [address] [place] [address] 46191 #### 15772-9 #### [facility] ([id number]) [address] [place] [address] CBC AND AUTO DIFFon 01-11-20 24 ABSOLUTE BASOPHIL 0.0 X10E9/L Normal 0.0-0.2 [facility] Comment on above: Performed By: #### Gricel REECE CBCA #### [facility] ([id number]) [address] [place] [address] 37394 #### 68416-5 #### [facility] ([id number]) [address] [place] [address] ABSOLUTE NEUTROPHIL 4.3 X10E9/L Normal 1.5-6.6 [facility] Comment on above: Performed By: #### C SHANELL CBCA #### [facility] ([id number]) [address] [place] [address] 47257 #### [id number] #### [facility] ([id number]) [address] [place] [address] Basophils/100 WBC (Bld) 0.5 % Normal [facility] Comment on above: Performed By: #### C SHANELL, CBCA #### [facility] ([id number]) [address] [place] [address] 94680 #### 35976-5 #### [facility] ([id number]) [address] [place] [address] Eosinophils (Bld) [#/Vol] 0.2 10*3/uL Normal 0.0-0.4 [facility] Comment on above: Performed By: #### C SHANELL, CBCA #### [facility] ([id number]) [address] [place] [address] 72223 #### 32648-1 #### [facility] ([id number]) [address] [place] [address] Eosinophils/100 WBC (Bld) 3.4 % Normal [facility] Comment on above: Performed By: #### C SHANELL, CBCA #### [facility] ([id number]) [address] [place] [address] 00216 #### 00493-9 #### [facility] ([id number]) [address] [place] [address] Erythrocyte distribution width (RBC) [Ratio] 15.4 % High 11.5-15.0 [facility] Comment on above: Performed By: #### C SHANELL, CBCA #### [facility] ([id number]) [address] [place] [address] 89193 #### 42624-6 #### [facility] ([id number]) [address] [place] [address] Hematocrit (Bld) [Volume fraction] 38.9 % Low 39-49 [facility] Comment on above: Performed By: #### C MP, CBCA #### [facility] ([id number]) [address] [place] [address] 51219 #### 70287-5 #### [facility] ([id number]) [address] [place] [address] Hemoglobin (Bld) [Mass/Vol] 13.0 g/dL Normal 13.0-17.0 [facility] Comment on above: Performed By: #### C MP, CBCA #### [facility] ([id number]) [address] [place] [address]205 #### [id number] #### [facility] ([id number]) [address] [facility], [address] [place] [address] Lymphocytes (Bld) [#/Vol] 2.0 10*3/uL Normal 1.0-3.5 [facility] Comment on above: Performed By: #### C SHANELL, CBCA #### [facility] ([id number]) [address] [place] [address]189 #### [id number] #### [facility] ([id number]) [address] [facility], [address] [place] [address] Lymphocytes/100 WBC (Bld) 27.7 % Normal [facility] Comment on above: Performed By: #### C MP, CBCA #### [facility] ([id number]) [address] [place] [address]958 #### [id number] #### [facility] ([id number]) [address], [address] [place] [address] MCH (RBC) [Entitic mass] 28.9 pg Normal 27-34 [facility] Comment on above: Performed By: #### C MP, CBCA #### [facility] ([id number]) [address] [place] [address]909 #### [id number] #### [facility] ([id number]) [address], [address] [place] [address] MCHC (RBC) [Mass/Vol] 33.3 g/dL Normal 32-36 [facility] Comment on above: Performed By: #### C SHANELL, CBCA #### [facility] ([id number]) [address] [place] [address] #### [id number] #### [facility] ([id number]) [address] [facility], [address] [place] [address] MCV (RBC) [Entitic vol] 87 fL Normal 80-100 [facility] Comment on above: Performed By: #### C SHANELL, CBCA #### [facility] ([id number]) [address] [place] [address] #### [id number] #### [facility] ([id number]) [address], [address] [place] [address] Monocytes (Bld) [#/Vol] 0.7 10*3/uL Normal 0-0.9 [facility] Comment on above: Performed By: #### C SHANELL, CBCA #### [facility] ([id number]) [address] [place] [address]346 #### [id number] #### [facility] ([id number]) [address], [address] [place] [address] Monocytes/100 WBC (Bld) 9.2 % Normal [facility] Comment on above: Performed By: #### C SHANELL, CBCA #### [facility] ([id number]) [address] [place] [address]1213 #### [id number] #### [facility] ([id number]) [address], [address] [place] [address] Neutrophils/100 WBC (Bld) 59.2 % Normal [facility] Comment on above: Performed By: #### C MP, CBCA #### [facility] ([id number]) [address] [place] [address] 35433 #### [id number] #### [facility] ([id number]) [address], [address] [place] [address] Platelet mean volume (Bld) [Entitic vol] 7.3 fL Normal 7-12 [facility] Comment on above: Performed By: #### C SHANELL, CBCA #### [facility] ([id number]) [address] [place] [address] 42934 #### [id number] #### [facility] ([id number]) [address] [place] [address] Platelets (Bld) [#/Vol] 264 10*3/uL Normal 150-450 [facility] Comment on above: Performed By: #### C SHANELL, CBCA #### [facility] ([id number]) [address] [place] [address] 35521 #### [id number] #### [facility] ([id number]) [address] [place] [address] RBC COUNT 4.48 X10E12/L Normal 4.10-5.70 [facility] Comment on above: Performed By: #### C SHANELL, CBCA #### [facility] ([id number]) [address] [place] [address] 94162 #### [id number] #### [facility] ([id number]) [address], [address] [place] [address] WBC (Bld) [#/Vol] 7.3 10*3/uL Normal 4.0-11.0 [facility] Comment on above: Performed By: #### Gricel REECE CBCA #### [facility] ([id number]) [address] [place] [address] 76698 #### [id number] #### [facility] ([id number]) [address], [address] [place] [address] COMPREHENSIVE METABOLIC PANE Jeff 01-11-2024 Albumin [Mass/Vol] 3.5 g/dL Normal 3.2-5.3 [facility] Comment on above: Performed By: #### Gricel REECE CBCA #### [facility] ([id number]) [address] [place] [address] 96559 #### [id number] #### [facility] ([id number]) [address] [place] [address] ALP [Catalytic activity/Vol] 72 U/L Normal 39-130 [facility] Comment on above: Performed By: #### Gricel REECE CBCA #### [facility] ([id number]) [address] [place] [address] 78929 #### 58543-5 #### [facility] ([id number]) [address] [place] [address] ALT [Catalytic activity/Vol] 18 U/L Normal 0-40 [facility] Comment on above: Performed By: #### Gricel REECE CBCA #### [facility] ([id number]) [address] [place] [address] 96801 #### 24363-5 #### [facility] ([id number]) [address] [place] [address] Anion gap [Moles/Vol] 8 mmol/L Normal 5-15 [facility] Comment on above: Performed By: #### C SHANELL, CBCA #### [facility] ([id number]) [address] [place] [address] 89186 #### [id number] #### [facility] ([id number]) [address] [place] [address] AST [Catalytic activity/Vol] 19 U/L Normal 0-41 [facility] Comment on above: Performed By: #### C MP, CBCA #### [facility] ([id number]) [address] [place] [address] 92108 #### 50749-3 #### [facility] ([id number]) [address] [place] [address] Bilirubin [Mass/Vol] 0.4 mg/dL Normal 0.3-1.2 [facility] Comment on above: Performed By: #### C SHANELL, CBCA #### [facility] ([id number]) [address] [place] [address] 27627 #### 93545-5 #### [facility] ([id number]) [address] [place] [address] Calcium [Mass/Vol] 8.9 mg/dL Normal 8.5-10.5 [facility] Comment on above: Performed By: #### C SHANELL, CBCA #### [facility] ([id number]) [address] [place] [address] 20190 #### 10788-9 #### [facility] ([id number]) [address] [place] [address] Chloride [Moles/Vol] 100 mmol/L Normal 98-109 [facility] Comment on above: Performed By: #### C MP, CBCA #### [facility] ([id number]) [address] [place] [address] 06035 #### 34194-4 #### [facility] ([id number]) [address] [facility] [place] [address] CO2 [Moles/Vol] 27 mmol/L Normal 22-32 [facility] Comment on above: Performed By: #### C SHANELL CBCA #### [facility] ([id number]) [address] [place] [address] 67882 #### 59219-6 #### [facility] ([id number]) [address] [facility] [place] [address] Creatinine [Mass/Vol] 1.29 mg/dL High 0.70-1.20 [facility] Comment on above: Result Comment: METH OD TRACEABLE TO IDMS STANDARD Performed By: #### C JOSEPH REECE #### [facility] ([id number]) [address] [place] [address] 64969 #### 57446-3 #### [facility] ([id number]) [address] [facility], [address] [place] [address] GFR/1.73 sq M.predicted among non-blacks MDRD (S/P/Bld) [Vol rate/Area] 54 mL/min/{1.73_m2} Low >59 [facility] Comment on above: Result Comment: Reported eGFR is based on the CKD-EPI 2020 equation that does not use a race coefficient. Performed By: #### C SHANELL CBCA #### [facility] ([id number]) [address] [place] [address] 25832 #### 59509-4 #### [facility] ([id number]) [address] [facility] [place] [address] Glucose [Mass/Vol] 160 mg/dL High 65-99 [facility] Comment on above: Performed By: #### C SHANELL CBCA #### [facility] ([id number]) [address] [place] [address] 55671 #### [id number] #### [facility] ([id number]) [address] [place] [address] Potassium [Moles/Vol] 4.6 mmol/L Normal 3.5-5.0 [facility] Comment on above: Performed By: #### C SHANELL, CBCA #### [facility] ([id number]) [address] [place] [address] 05587 #### 48819-1 #### [facility] ([id number]) [address] [place] [address] Protein [Mass/Vol] 7.4 g/dL Normal 6.0-8.0 [facility] Comment on above: Performed By: #### C SHANELL, CBCA #### [facility] ([id number]) [address] [place] [address] 48407 #### 27552-3 #### [facility] ([id number]) [address] [place] [address] Sodium [Moles/Vol] 135 mmol/L Normal 134-146 [facility] Comment on above: Performed By: #### C SHANELL, CBCA #### [facility] ([id number]) [address] [place] [address] 50283 #### 48073-4 #### [facility] ([id number]) [address], [address] [place] [address] Urea nitrogen [Mass/Vol] 27 mg/dL Normal 5-27 [facility] Comment on above: Performed By: #### C SHANELL, CBCA #### [facility] ([id number]) [address] [place] [address] 63137 #### 91234-0 #### [facility] ([id number]) [address], [address] [place] [address] HGB A1C (GLYCO-HGB)on 2023 Glucose [Mass/Vol] 177 mg/dL Normal [facility] Comment on above: Performed By: #### C SHANELL CBCA #### [facility] ([id number]) [address] [place] [address] 42121 #### 46399-2 #### [facility] ([id number]) [address], [address] [place] [address] HbA1c (Bld) [Mass fraction] 7.8 % High 4.4-5.6 [facility] Comment on above: Result Comment: NOTE ADA Guidelines Result HgbA1c Normal : less than 5.7 % Prediabetes : 5.7 % to 6.4 % Diabetes : > 6.4 % Use with caution in patients with abnormal hemoglobin variants as the half-life of red blood cells and in vivo glycation rates are affected. Performed By: #### Gricel REECE CBCA #### [facility] ([id number]) [address] [place] [address] 73121 #### 14330-0 #### [facility] ([id number]) [address], [address] [place] [address] Lipid 1996 panelon Cholesterol [Mass/Vol] 140 mg/dL Low 150-200 [facility] Comment on above: Performed By: #### Gricel REECE CBCA #### [facility] ([id number]) [address] [place] [address] 36134 #### 04847-3 #### [facility] ([id number]) [address] [place] [address] Cholesterol in HDL [Mass/Vol] 46 mg/dL Normal >39 [facility] Comment on above: Result Comment: HDL <40 mg/dL - High Risk HDL > or = 40mg/dL- Desirable HDL >60 mg/dL - Negative Risk Performed By: #### JOSEPH Monsalve MP #### [facility] ([id number]) [address] [place] [address] 77486 #### 78827-5 #### [facility] ([id number]) [address] [place] [address] Cholesterol in LDL [Mass/Vol] 53 mg/dL Normal <130 [facility] Comment on above: Result Comment: LDL <100 mg/dL - Desirable LDL >160 mg/dL - High Risk Performed By: #### JS Monsalve MPA #### [facility] ([id number]) [address] [place] [address] 56084 #### 14785-1 #### [facility] ([id number]) [address] [place] [address] Cholesterol in VLDL [Mass/Vol] 41 mg/dL High 0-30 [facility] Comment on above: Performed By: #### Gricel REECE CBCA #### [facility] ([id number]) [address] [place] [address] 29661 #### 00787-0 #### [facility] ([id number]) [address] [place] [address] CHOLESTEROL:HDL 3.0 Normal 1.0-5.0 [facility] Comment on above: Performed By: #### C MP, CBCA #### [facility] ([id number]) [address] [place] [address] 71498 #### 66839-5 #### [facility] ([id number]) [address] [facility] [place] [address] Triglyceride [Mass/Vol] 203 mg/dL High 27-150 [facility] Comment on above: Performed By: #### C SHANELL CBCA #### [facility] ([id number]) [address] [place] [address] 22244 #### 37018-7 #### [facility] ([id number]) [address] [facility] [place] [address] MICROALBUMIN - ALBUMIN:CREAT ININE URINE RATIOon 01-11-2024 ALB/CREAT RATIO 119.5 mg/g creat High 0.0-30.0 [facility] Comment on above: Performed By: #### M ALBU #### [facility] ([id number]) [address] [facility] [place] [address] #### UA #### [facility] ([id number]) [address] [place] [address]42 Albumin DL <= 20 mg/L (U) [Mass/Vol] 9.5 mg/dL High 0.0-1.9 [facility] Comment on above: Performed By: #### M ALBU #### [facility] ([id number]) [address] [place] [address] #### UA #### [facility] ([id number]) [address] [place] [address] 20982 URINE CREAT 79.50 mg/dL Normal [facility] Comment on above: Performed By: #### M ALBU #### [facility] ([id number]) [address] [place] [address] #### UA #### [facility] ([id number]) [address] [place] [address] 37435 URINALYSISon 01-11-2024 Bilirubin Ql (U) Negative Normal NEG [facility] Comment on above: Performed By: #### M ALBU #### [facility] ([id number]) [address] [place] [address] #### UA #### [facility] ([id number]) [address] [place] [address] 06692 BLOOD/HGB MODERATE Abnormal NEG [facility] Comment on above: Performed By: #### M ALBU #### [facility] ([id number]) [address] [place] [address] #### UA #### [facility] ([id number]) [address] [place] [address] 22136 Color (U) YELLOW Normal YELLOW [facility] Comment on above: Performed By: #### M ALBU #### [facility] ([id number]) [address] [place] [address] #### UA #### [facility] ([id number]) [address] [place] [address] 23373 Glucose Ql (U) >1000 Abnormal NEG [facility] Comment on above: Performed By: #### M ALBU #### [facility] ([id number]) [address] [place] [address] #### UA #### [facility] ([id number]) [address] [place] [address] 16707 Ketones Ql (U) Negative Normal NEG [facility] Comment on above: Performed By: #### M ALBU #### [facility] ([id number]) [address] [facility] [place] [address] #### UA #### [facility] ([id number]) [address] [place] [address] 36836 Leukocyte esterase Test strip Ql (U) MODERATE Abnormal NEG [facility] Comment on above: Result Comment: HIGH CONCENTRATIONS OF GLUCOSE MAY DECREASE THE REACTIVITY OF THE DIPSTICK LEUKOCYTE TEST PAD. Performed By: #### M ALBU #### [facility] ([id number]) [address] [facility], [address] [place] [address] #### UA #### [facility] ([id number]) [address] [place] [address] 34223 MUCOUS PRESENT Abnormal NONE [facility] Comment on above: Performed By: #### M ALBU #### [facility] ([id number]) [address] [facility], [address] [place] [address] #### UA #### [facility] ([id number]) [address] [place] [address] 97806 Nitrite Ql (U) Negative Normal NEG [facility] Comment on above: Performed By: #### M ALBU #### [facility] ([id number]) [address] [facility], [address] [place] [address] #### UA #### [facility] ([id number]) [address] [place] [address] 64191 pH (U) 7.0 [pH] Normal 5.0-8.5 [facility] Comment on above: Performed By: #### M ALBU #### [facility] ([id number]) [address] [facility] [place] [address] #### UA #### [facility] ([id number]) [address] [place] [address] 32647 Protein Ql (U) Trace Abnormal NEG [facility] Comment on above: Performed By: #### M ALBU #### [facility] ([id number]) [address] [facility], [address] [place] [address] #### UA #### [facility] ([id number]) [address] [place] [address] 75083 R.B.CELLS 16 /hpf High 0-5 [facility] Comment on above: Performed By: #### M ALBU #### [facility] ([id number]) [address] [facility], [address] [place] [address] #### UA #### [facility] ([id number]) [address] [place] [address] 20893 Specific gravity (U) [Rel density] 1.015 Normal 1.003-1.035 [facility] Comment on above: Performed By: #### M ALBU #### [facility] ([id number]) [address] [place] [address], [address] [place] [address] #### UA #### [facility] ([id number]) [address] [place] [address] 87580 SQUAMOUS EPITHELIUM 2 /hpf Normal 0-5 [facility] Comment on above: Performed By: #### M ALBU #### [facility] ([id number]) [address] [place] [address] [address] [place] [address] #### UA #### [facility] ([id number]) [address] [place] [address] 09702 TURBIDITY CLOUDY Abnormal CLEAR [facility] Comment on above: Performed By: #### M ALBU #### [facility] ([id number]) [address] [facility], [address] [place] [address] #### UA #### [facility] ([id number]) [address] [place] [address] 36107 Urobilinogen Qn (U) 0.2 {Laurie'U}/dL Normal <1.1 [facility] Comment on above: Performed By: #### M ALBU #### [facility] ([id number]) [address] [place] [address], [address] [place] [address] #### UA #### [facility] ([id number]) [address] [place] [address] 38890 W.B.CELLS >100 High 0-5 [facility] Comment on above: Performed By: #### M ALBU #### [facility] ([id number]) [address] [place] [address], [address] [place] [address] #### UA #### [facility] ([id number]) [address] [place] [address] 60883 URINE CULTUREon 01-11-2024 Bacteria identified Cx Nom (U) CULTURE RESULTS 10,000 to 50,000 ORGANISMS/mL PROTEUS MIRABILIS 10,000 to 50,000 ORGANISMS/mL PROTEUS MIRABILIS VARIANT 10,000 to 50,000 ORGANISMS/mL PROTEUS MIRABILIS 2ND VARIANT TRICE STRONG CONTAINER COORDINATOR REQUESTING WORKUP 01/14/2024 CORRECTED REPORT [ S = SUSCEPTIBLE R = RESISTANT I = INTERMEDIATE S-DO = Susceptible-dose dependent NS = Non-suscceptible NO = No Interpretation ] Organism: PROTEUS MIRABILIS Antibiotic Interpretation HENNY Status AMPICILLIN S <=2 F AMP/SULBACTAM S <=2/1 F CEFAZOLIN S 8 F CEFTRIAXONE S <=1 F CIPROFLOXACIN S <=0.25 F GENTAMICIN S <=1 F LEVOFLOXACIN S <=0.12 F NITROFURANTOIN R 128 F PIPERACIL/TAZOBACTAM S <=4 F TOBRAMYCIN S <=1 F TRIMETH/SULFAMETHOXA ZOLE S <=/19 F [ S = SUSCEPTIBLE R = RESISTANT I = INTERMEDIATE S-DO = Susceptible-dose dependent NS = Non-suscceptible NO = No Interpretation ] Organism: PROTEUS MIRABILIS Antibiotic Interpretation HENNY Status AMPICILLIN S <=2 F AMP/SULBACTAM S <=2/1 F CEFAZOLIN S <=4 F CEFTRIAXONE S <=1 F CIPROFLOXACIN S <=0.25 F GENTAMICIN S <=1 F LEVOFLOXACIN S <=0.12 F NITROFURANTOIN R 128 F PIPERACIL/TAZOBACTAM S <=4 F TOBRAMYCIN S <=1 F TRIMETH/SULFAMETHOXA ZOLE S <=1/19 F [ S = SUSCEPTIBLE R = RESISTANT I = INTERMEDIATE S-DO = Susceptible-dose dependent NS = Non-suscceptible NO = No Interpretation ] Organism: PROTEUS MIRABILIS Antibiotic Interpretation HENNY Status AMPICILLIN S <=2 F AMP/SULBACTAM S <=2/1 F CEFAZOLIN S 8 F CEFTRIAXONE S <=1 F CIPROFLOXACIN S <=0.25 F GENTAMICIN S <=1 F LEVOFLOXACIN S <=0.12 F NITROFURANTOIN R 128 F PIPERACIL/TAZOBACTAM S <=4 F TOBRAMYCIN S <=1 F TRIMETH/SULFAMETHOXA ZOLE S <=12/02 F Susceptible [facility] Comment on above: Performed By: #### 6 30-4 #### [facility] ([id number]) [address] [place] [address], [address] [place] [address] GLYCOHEMOGLOBIN A1Con 2022 ADA RECOMMENDATION SEE BELOW Normal [facility] Comment on above: Result Comment: ADA RECOMMENDED LIMIT 4.0 - 6.0 ADA THERAPEUTIC TARGET < 7.0 ACTION SUGGESTED > 7.0 Performed By: #### A 1C #### [facility] [address] [place] [address] Dr. Javi Flynn Glucose [Mass/Vol] 275 mg/dL Normal [facility] Comment on above: Performed By: #### A 1C #### [facility] [address] [place] [address] Dr. Javi Flynn HbA1c (Bld) [Mass fraction] 11.2 % Critically high 4.5-6.2 [facility] Comment on above: Performed By: #### A 1C #### [facility] [address] [place] [address] Dr. Javi Flynn PROF CHEM 8 (BAS METB)on Anion gap [Moles/Vol] 13.8 mmol/L Normal [facility] Comment on above: Performed By: #### B MP #### [facility] [address] [address] [address] Javi Flynn Calcium [Mass/Vol] 8.8 mg/dL Normal 8.5-10.1 [facility] Comment on above: Performed By: #### B MP #### [facility] [address] [address] [address] Javi Flynn Chloride [Moles/Vol] 102 mmol/L Normal 98-107 [facility] Comment on above: Performed By: #### B MP #### [facility] [address] [address] [address] Javi Flynn CO2 [Moles/Vol] 26.6 mmol/L Normal 21.0-32.0 [facility] Comment on above: Performed By: #### B MP #### [facility] [address] [address] [address] Javi Flynn Creatinine [Mass/Vol] 1.50 mg/dL Critically high 0.70-1.30 [facility] Comment on above: Performed By: #### B MP #### [facility] [address] [address] [address] Javi Flynn EGFR-AF LIBERIAN 54 mL/min/1.73m2 Critically low >=60 [facility] Comment on above: Performed By: #### B MP #### [facility] [address] [address] [address] Javi Flynn EGFR-NON AF LIBERIAN 45 mL/min/1.73m2 Critically low >=60 [facility] Comment on above: Performed By: #### B MP #### [facility] [address] [address] [address] Javi Flynn Glucose [Mass/Vol] 349 mg/dL Critically high 74-106 [facility] Comment on above: Performed By: #### B MP #### [facility] [address] [address] [address] Javi Flynn Potassium [Moles/Vol] 4.4 mmol/L Normal 3.5-5.1 [facility] Comment on above: Performed By: #### B MP #### [facility] [address] [address] [address] Javi Flynn Sodium [Moles/Vol] 138 mmol/L Normal 136-145 [facility] Comment on above: Performed By: #### B MP #### [facility] [address] [address] [address] Javi Flynn Urea nitrogen [Mass/Vol] 22.0 mg/dL Critically high 7.0-18.0 [facility] Comment on above: Performed By: #### B MP #### [facility] [address] [address] [address] Javi Flynn Urea nitrogen/Creatinine [Mass ratio] 14.7 mg/mg Normal [facility] Comment on above: Performed By: #### B MP #### [facility] [address] [place] [address] Dr. Javi Flynn PROTIMEon 03-02-2023 INR Coag (PPP) [Relative time] 2.94 {INR} Normal [facility] Comment on above: Performed By: #### P T #### [facility] [address] [place] [address] Dr. Javi Flynn INR GUIDELINES SEE BELOW Normal [facility] Comment on above: Result Comment: EDDIE RED INR: 2.0 - 3.0 CONDITIONS NOT LISTED BELOW 2.5 - 3.5 FOR PROSTHETIC HEART VALVE REPLACEMENT 2.5 - 3.5 RECURRENT THROMBOSIS Performed By: #### P T #### [facility] [address] [address] [address] Javi Flynn PT Coag (PPP) [Time] 29.3 s Critically high 9.0-11.6 [facility] Comment on above: Performed By: #### P T #### [facility] [address] [place] [address] Dr. Javi Flynn CBC AUTO DIFFon 09-20-2022 BASO # 0.1 103/ul Normal 0.0-0.1 [facility] Comment on above: Performed By: #### C BC #### [facility] [address] [place] [address] Dr. Javi Flynn Basophils/100 WBC (Bld) 0.8 % Normal 0.2-2.0 [facility] Comment on above: Performed By: #### C BC #### [facility] [address] [place] [address] Dr. Javi Flynn EO # 0.2 103/ul Normal 0.0-0.7 [facility] Comment on above: Performed By: #### C BC #### [facility] [address] [place] [address] Dr. Javi Flynn Eosinophils/100 WBC (Bld) 2.9 % Normal 0.9-7.0 [facility] Comment on above: Performed By: #### C BC #### [facility] [address] [place] [address] Dr. Javi Flynn Erythrocyte distribution width (RBC) [Ratio] 13.6 % Normal 11.0-15.0 [facility] Comment on above: Performed By: #### C BC #### [facility] [address] [place] [address] Dr. Javi Flynn Hematocrit (Bld) [Volume fraction] 40.0 % Critically low 42.0-54.0 [facility] Comment on above: Performed By: #### C BC #### [facility] [address] [place] [address] Dr. Javi Flynn Hemoglobin (Bld) [Mass/Vol] 13.1 g/dL Critically low 14.0-18.0 [facility] Comment on above: Performed By: #### C BC #### [facility] [address] [place] [address] Dr. Javi Flynn IG # 0.03 10e3/ul Normal 0.00-0.03 [facility] Comment on above: Performed By: #### C BC #### [facility] [address] [place] [address] Dr. Javi Flynn IG % 0.5 % Normal 0.0-0.5 [facility] Comment on above: Performed By: #### C BC #### [facility] [address] [place] [address] Dr. Javi Flynn LYMPH # 2.1 103/ul Normal 1.2-3.8 [facility] Comment on above: Performed By: #### C BC #### [facility] [address] [place] [address] Dr. Javi Flynn Lymphocytes/100 WBC (Bld) 32.0 % Normal 20.5-60.0 [facility] Comment on above: Performed By: #### C BC #### [facility] [address] [place] [address] Dr. Javi Flynn MANUAL DIFF REQ NO Normal [facility] Comment on above: Performed By: #### C BC #### [facility] [address] [place] [address] Dr. Javi Flynn MCH (RBC) [Entitic mass] 28.1 pg Normal 25.9-34.0 [facility] Comment on above: Performed By: #### C BC #### [facility] [address] [place] [address] Dr. Javi Flynn MCHC (RBC) [Mass/Vol] 32.8 g/dL Normal 29.9-35.2 [facility] Comment on above: Performed By: #### C BC #### [facility] [address] [place] [address] Dr. Javi Flynn MCV (RBC) [Entitic vol] 85.8 fL Normal 80.0-94.0 [facility] Comment on above: Performed By: #### C BC #### [facility] [address] [place] [address] Dr. Javi Flynn MONO # 0.6 103/ul Normal 0.3-0.8 [facility] Comment on above: Performed By: #### C BC #### [facility] [address] [place] [address] Dr. Javi Flynn Monocytes/100 WBC (Bld) 8.7 % Normal 1.7-12.0 [facility] Comment on above: Performed By: #### C BC #### [facility] [address] [address] [address] Javi Flynn NEUT # 3.7 103/ul Normal 1.4-6.5 [facility] Comment on above: Performed By: #### C BC #### [facility] [address] [address] [address] Javi Flynn Neutrophils/100 WBC (Bld) 55.1 % Normal 43.0-75.0 [facility] Comment on above: Performed By: #### C BC #### [facility] [address] [address] [address] Javi Flynn Platelet mean volume (Bld) [Entitic vol] 9.4 fL Critically low 9.5-13.5 [facility] Comment on above: Performed By: #### C BC #### [facility] [address] [address] [address] Javi Flynn PLT 268 103/ul Normal 150-450 [facility] Comment on above: Performed By: #### C BC #### [facility] [address] [address] [address] Javi Flynn RBC 4.66 106/ul Critically low 4.70-6.10 [facility] Comment on above: Performed By: #### C BC #### [facility] [address] [address] [address] Javi Flynn WBC 6.7 103/ul Normal 4.0-11.0 [facility] Comment on above: Performed By: #### C BC #### [facility] [address] [address] [address] Javi Flynn GLYCOHEMOGLOBIN A1Con 2021 ADA RECOMMENDATION SEE BELOW Normal [facility] Comment on above: Result Comment: ADA RECOMMENDED LIMIT 4.0 - 6.0 ADA THERAPEUTIC TARGET < 7.0 ACTION SUGGESTED > 7.0 Performed By: #### A 1C #### [facility] [address] [address] [address] Javi Flynn Glucose [Mass/Vol] 312 mg/dL Normal [facility] Comment on above: Performed By: #### A 1C #### [facility] [address] [place] [address] Dr. Javi Flynn HbA1c (Bld) [Mass fraction] 12.5 % Critically high 4.5-6.2 [facility] Comment on above: Performed By: #### A 1C #### [facility] [address] [place] [address] Dr. Javi Flynn PROF CHEM 8 (BAS METB)on Anion gap [Moles/Vol] 10.9 mmol/L Normal [facility] Comment on above: Performed By: #### B MP #### [facility] [address] [place] [address] Dr. Javi Flynn Calcium [Mass/Vol] 8.7 mg/dL Normal 8.5-10.1 [facility] Comment on above: Performed By: #### B MP #### [facility] [address] [place] [address] Dr. Javi Flynn Chloride [Moles/Vol] 98 mmol/L Normal 98-107 [facility] Comment on above: Performed By: #### B MP #### [facility] [address] [place] [address] Dr. Javi Flynn CO2 [Moles/Vol] 25.3 mmol/L Normal 21.0-32.0 [facility] Comment on above: Performed By: #### B MP #### [facility] [address] [place] [address] Dr. Javi Flynn Creatinine [Mass/Vol] 1.18 mg/dL Normal 0.70-1.[address] [facility] Comment on above: Performed By: #### B MP #### [facility] [address] [place] [address] Dr. Javi Flynn EGFR-AF LIBERIAN >60 Normal >=60 The [facility] Comment on above: Performed By: #### B MP #### [facility] [address] [place] [address] Dr. Javi Flynn EGFR-NON AF LIBERIAN 59 mL/min/1.73m2 Critically low >=[address] [facility] Comment on above: Performed By: #### B MP #### [facility] [address] [address] [address] Javi Flynn Glucose [Mass/Vol] 256 mg/dL Critically high 74-106 [facility] Comment on above: Performed By: #### B MP #### [facility] [address] [address] [address] Javi Flynn Potassium [Moles/Vol] 4.2 mmol/L Normal 3.5-5.1 [facility] Comment on above: Performed By: #### B MP #### [facility] [address] [address] [address] Javi Flynn Sodium [Moles/Vol] 130 mmol/L Critically low 136-145 [facility] Comment on above: Performed By: #### B MP #### [facility] [address] [address] [address] Javi Flynn Urea nitrogen [Mass/Vol] 17.0 mg/dL Normal 7.0-18.0 [facility] Comment on above: Performed By: #### B MP #### [facility] [address] [address] [address] Javi Flynn Urea nitrogen/Creatinine [Mass ratio] 14.4 mg/mg Normal [facility] Comment on above: Performed By: #### B MP #### [facility] [address] [address] [address] Javi Flynn PROTIMEon 09-03-2022 INR Coag (PPP) [Relative time] 5.23 {INR} Critically high [facility] Comment on above: Performed By: #### P T #### [facility] [address] [address] [address] Javi Flynn INR GUIDELINES SEE BELOW Normal [facility] Comment on above: Result Comment: EDDIE RED INR: 2.0 - 3.0 CONDITIONS NOT LISTED BELOW 2.5 - 3.5 FOR PROSTHETIC HEART VALVE REPLACEMENT 2.5 - 3.5 RECURRENT THROMBOSIS Performed By: #### P T #### [facility] [address] [address] [address] Javi Flynn PT Coag (PPP) [Time] 50.7 s Critically high 9.0-11.[address] [facility] Comment on above: Performed By: #### P T #### [facility] [address] [place] [address] Dr. Javi Flynn CULTURE URINEon 06-15-2022 CULTURE [...] R F Normal [facility] Comment on above: Performed By: #### U RCX #### [facility] [address] [place] [address] Dr. Javi Flynn UA RANDOM W/MICROSCOPICon BACTERIA MODERATE Abnormal NONE SEEN [facility] Comment on above: Performed By: #### U AMIC #### [facility] [address] [place] [address] Dr. Javi Flynn Bilirubin Ql (U) Negative Normal NEGATIVE [facility] Comment on above: Performed By: #### U AMIC #### [facility] [address] [address] [address] Javi Flynn CAST NONE SEEN Normal NONE SEEN [facility] Comment on above: Performed By: #### U AMIC #### [facility] [address] [address] [address] Javi Flynn Clarity (U) CLEAR Normal CLEAR [facility] Comment on above: Performed By: #### U AMIC #### [facility] [address] [address] [address] Javi Flynn Color (U) BROWN Abnormal YELLOW [facility] Comment on above: Performed By: #### U AMIC #### [facility] [address] [place] [address] Dr. Javi Flynn Crystals LM Nom (Urine sed) NONE SEEN Normal NONE SEEN [facility] Comment on above: Performed By: #### U AMIC #### [facility] [address] [address] [address] Javi Flynn Epithelial cells LM Ql (Urine sed) RARE Normal NONE SEEN /RARE [facility] Comment on above: Performed By: #### U AMIC #### [facility] [address] [place] [address] Dr. Javi Flynn Glucose Ql (U) >1000 Abnormal NEGATIVE [facility] Comment on above: Performed By: #### U AMIC #### [facility] [address] [address] [address] Javi Flynn Hemoglobin Ql (U) MODERATE Abnormal NEGATIVE The [facility] Comment on above: Performed By: #### U AMIC #### [facility] [address] [address] [address] Javi Flynn Ketones Ql (U) Negative Normal NEGATIVE [facility] Comment on above: Performed By: #### U AMIC #### [facility] [address] [place] [address] Dr. aJvi Flynn LEUKOCYTES LARGE Abnormal NEGATIVE [facility] Comment on above: Performed By: #### U AMIC #### [facility] [address] [address] [address] Javi Flynn MUCOUS NONE SEEN Normal NONE SEEN [facility] Comment on above: Performed By: #### U AMIC #### [facility] [address] [address] [address] Javi Flynn Nitrite Ql (U) Negative Normal NEGATIVE [facility] Comment on above: Performed By: #### U AMIC #### [facility] [address] [address] [address] Javi Flynn pH (U) 5.5 [pH] Normal 5-9 [facility] Comment on above: Performed By: #### U AMIC #### [facility] [address] [place] [address] Dr. Javi Flynn RBC 10-20 Abnormal 0-2 [facility] Comment on above: Performed By: #### U AMIC #### [facility] [address] [place] [address] Dr. Javi Flynn SPEC GRAVITY 1.010 Normal 1.005-<=1.025 [facility] Comment on above: Performed By: #### U AMIC #### [facility] [address] [place] [address] Dr. Javi Flynn UA PROTEIN Negative Normal NEGATIVE/ TRACE [facility] Comment on above: Performed By: #### U AMIC #### [facility] [address] [place] [address] Dr. Javi Flynn Urobilinogen Qn (U) 0.2 {Laurie'U}/dL Normal 0.2 - 1. 0 [facility] Comment on above: Performed By: #### U AMIC #### [facility] [address] [place] [address] Dr. Javi Flynn WBC (U) [#/Vol] /uL Abnormal NONE SEEN The [facility] Comment on above: Performed By: #### U AMIC #### [facility] [address] [place] [address] Dr. Javi Flynn Hemoglobin A1Con 08-17-2020 HbA1c (Bld) [Mass fraction] 206 mg/dL Normal [facility] Comment on above: Result Comment: The ADA and AACC recommend providing the estimated average glucose result to permit better patient understanding of their HBA1c result. Performed By: #### B MP #### [address] [place] [address] Preparer: Chago Esposito MD #### GLYHGB #### [address] [place], [place] [id number] Preparer: Rigo Luna MD HbA1c (Bld) [Mass fraction] 8.8 % High 4.0-6.0 [facility] Comment on above: Performed By: #### B MP #### [address] [place] [id number] ( Preparer: Chago Esposito MD #### GLYHGB #### [address] [place], [place] [id number] Preparer: Rigo Luna MD Basic Metabolic Profon 08-15 (cont.) Normal [facility] Comment on above: Result Comment: Aver age GFR for 70 or more years old: 75 mL/min/1.73sq m Chronic Kidney Disease: <60 mL/min/1.73sq m Kidney failure: <15 mL/min/1.73sq m eGFR calculated using average adult body mass. Additional eGFR calculator available at: http://[email or web address].Kuapay/multiple_crcl_2012.htm Performed By: #### B MP #### [address] [place] [address] ( Preparer: Chago Esposito MD #### GLYHGB #### [address] [place], [place] [id number] Preparer: Rigo Luna MD Anion gap [Moles/Vol] 13 mmol/L Normal 9-17 [facility] Comment on above: Performed By: #### B MP #### [address] [place] [address] Preparer: Chago Esposito MD #### GLYHGB #### [facility] [address] [place] [address] Preparer: Rigo Luna MD BUN/CRE Ratio 18 Normal 9-20 [facility] Comment on above: Performed By: #### B MP #### [facility] [address] [place], [place] [id number] Preparer: Chago Esposito MD #### GLYHGB #### [address] [address] Preparer: Rigo Luna MD Calcium [Mass/Vol] 8.9 mg/dL Normal 8.6-10.4 [facility] Comment on above: Performed By: #### B MP #### [facility] [address] [place], [place] [id number] Preparer: Chago Espoisto MD #### GLYHGB #### [address] [address] Preparer: Rigo Luna MD Chloride [Moles/Vol] 96 mmol/L Low 98-107 [facility] Comment on above: Performed By: #### B MP #### [facility] [address] [place] [address] Preparer: Chago Esposito MD #### GLYHGB #### [facility] [address] [place] [address] Preparer: Rigo Luna MD CO2 [Moles/Vol] 23 mmol/L Normal 20-31 [facility] Comment on above: Performed By: #### B MP #### [facility] [address] [place] [address] Preparer: Chago Esposito MD #### GLYHGB #### [facility] [address] [place] [address] Preparer: Rigo Luna MD Creatinine [Mass/Vol] 1.04 mg/dL Normal 0.70-1.20 [facility] Comment on above: Performed By: #### B MP #### [facility] [address] [place], [place] [address] Preparer: Chago Esposito MD #### GLYHGB #### [address] [address] Preparer: Rigo Luna MD GFR, Amer >60 Normal >60 [facility] Comment on above: Performed By: #### B MP #### [facility] [address] [place], [place] [id number] Preparer: Chago Esposito MD #### GLYHGB #### [address] [id number] Preparer: Rigo Luna MD GFR,non Amer >60 Normal >60 [facility] Comment on above: Performed By: #### B MP #### [facility] [address] [place], [place] [id number] Preparer: Chago Esposito MD #### GLYHGB #### [address] [address] Preparer: Rigo Luna MD Glucose [Mass/Vol] 249 mg/dL High 70-99 [facility] Comment on above: Performed By: #### B MP #### [facility] [address] [place] [address] Preparer: Chago Esposito MD #### GLYHGB #### [address] [address] Preparer: Rigo Luna MD Potassium [Moles/Vol] 4.1 mmol/L Normal 3.7-5.3 [facility] Comment on above: Performed By: #### B MP #### [facility] [address] [place], [place] [id number] Preparer: Chago Esposito MD #### GLYHGB #### [address] [place] [address] Preparer: Rigo Luna MD Sodium [Moles/Vol] 132 mmol/L Low 135-144 [facility] Comment on above: Performed By: #### B MP #### [facility] [address] [place], [place] [id number] Preparer: Chago Esposito MD #### GLYHGB #### [address] [address] Preparer: Rigo Luna MD Staging: Normal [facility] Comment on above: Result Comment: Stag e 1: Some kidney damage normal GFR Stage 2: Mild kidney damage GFR 60-89 Stage 3: Moderate kidney damage GFR 30-59 Stage 4: Severe kidney damage GFR 15-29 Stage 5: Severe kidney damage GFR <15 ESRD - chronic treatment by dialysis or transplant Performed By: #### B MP #### [address] [place], [place] [id number] Preparer: Chago Esposito MD #### GLYHGB #### [address] [address] Preparer: Rigo Luna MD Urea nitrogen [Mass/Vol] 19 mg/dL Normal 8-23 [facility] Comment on above: Performed By: #### B MP #### [address] [place] [id number] Preparer: Chago Esposito MD #### GLYHGB #### [address] [place] [address] Preparer: Rigo Luna MD Cult,Urineon 10-24-2019 Cult,Urine Specimen Description .VOIDED URINE Special Requests NOT REPORTED Culture Several types of bacteria were identified in this specimen. Further ID and susceptibility testing is generally not helpful in this circumstance and has not been performed. Consider recollection if clinically indicated. Please contact the Micro lab ([phone]) if you feel the management ofthis particular situation would be helped by further testing. Report Status FINAL 10/24/2019 Normal [facility] Comment on above: Performed By: #### U RC #### [address] [address] Preparer: Rigo Luna MD [facility] [address] [place] [address] Preparer: Chago Esposito MD Urinalysis, Routineon 2018 Acetoacetic Acid,Ur Negative Normal NEG [facility] Comment on above: Performed By: #### U A, UMICAO #### [address] [address] Preparer: Rigo Luna MD Bilirubin, SemiQt,Ur Negative Normal NEG [facility] Comment on above: Performed By: #### U A, UMICAO #### [facility] [address] [place] [address] Preparer: Rigo Luna MD Color (U) YELLOW Normal [facility] Comment on above: Performed By: #### U A, UMICAO #### [facility] [address] [place] [address] Preparer: Rigo Luna MD Glucose Ql (U) Negative Normal NEG [facility] Comment on above: Performed By: #### U A, UMICAO #### [facility] [address] [place] [address] Preparer: Rigo Luna MD Hemoglobin, Ur Negative Normal NEG [facility] Comment on above: Performed By: #### U A, UMICAO #### [facility] [place] [address] Preparer: Rigo Luna MD Leukocyte esterase Test strip Ql (U) MODERATE Abnormal NEG [facility] Comment on above: Performed By: #### U A, UMICAO #### [address] [address] Preparer: Rigo Luna MD Nitrite,Ur Negative Normal NEG [facility] Comment on above: Performed By: #### U A, UMICAO #### [address] [address] Preparer: Rigo Luna MD pH (U) 5.5 [pH] Normal 5.0-8.0 [facility] Comment on above: Performed By: #### U A, UMICAO #### [address] [address] Preparer: Rigo Luna MD Protein Ql (U) Negative Normal NEG [facility] Comment on above: Performed By: #### U A, UMICAO #### [address] [address] Preparer: Rigo Luna MD Specific gravity (U) [Rel density] 1.013 Normal 1.005-1.030 [facility] Comment on above: Performed By: #### U A, UMICAO #### [address] [address] Preparer: Rigo Luna MD Turbidity CLEAR Normal CLEAR [facility] Comment on above: Performed By: #### U A, UMICAO #### [address] [address] Preparer: Rigo Luna MD Urobilinogen,Ur Normal Normal NORM [facility] Comment on above: Performed By: #### U A, UMICAO #### [address] [address] Preparer: Rigo Luna MD Urinalysis,Microon 9 ----- Normal [facility] Comment on above: Performed By: #### U A, UMICAO #### [facility] [address] [place] [address] Preparer: Rigo Luna MD Epithelial cells LM.HPF (Urine sed) [#/Area] 2 TO 5 Normal 0-5 [facility] Comment on above: Performed By: #### U A, UMICAO #### [facility] [address] [place] [address] Preparer: Rigo Luna MD RBC (U) [#/Vol] 0 TO 2 Normal 0-4 [facility] Comment on above: Result Comment: Refe rence range defined for non-centrifuged specimen. Performed By: #### U A, UMICAO #### [address] [address] Preparer: Rigo Luna MD WBC (U) [#/Vol] 10 TO 20 Normal 0-5 [facility] Comment on above: Performed By: #### U A, UMICAO #### [address] [address] Preparer: Rigo Luna MD Urinalysis, Routineon 2018 Comment NOT REPORTED Normal [facility] Comment on above: Performed By: #### U A, UMICAO #### [address] [address] Preparer: Rigo Luna MD Urinalysis,Microon 9 Amorphous sediment LM Ql (Urine sed) NOT REPORTED Normal [facility] Comment on above: Performed By: #### U A, UMICAO #### [facility] [address] [place] [address] Preparer: Rigo Luna MD Bacteria LM.HPF (Urine sed) [#/Area] NOT REPORTED Normal [facility] Comment on above: Performed By: #### U A, UMICAO #### [facility] [address] [place] [address] Preparer: Rigo Luna MD Casts LM.LPF (Urine sed) [#/Area] NOT REPORTED Normal 0-8 [facility] Comment on above: Performed By: #### U A, UMICAO #### [facility] [address] [place] [address] Preparer: Rigo Luna MD Crystals LM Nom (Urine sed) NOT REPORTED Normal NONE [facility] Comment on above: Performed By: #### U A, UMICAO #### [facility] [address] [place] [address] Preparer: Rigo Luna MD Epithelial, Renal NOT REPORTED Normal 0 [facility] Comment on above: Performed By: #### U A, UMICAO #### [facility] [address] [place] [address] Preparer: Rigo Luna MD Mucus Strands NOT REPORTED Normal [facility] Comment on above: Performed By: #### U A, UMICAO #### [facility] [address] [place] [address] Preparer: Rigo Luna MD Other Observations NOT REPORTED Normal NREQ [facility] Comment on above: Performed By: #### U A, UMICAO #### [facility] [address] [place] [address] Preparer: Rigo Luna MD Trichomonas NOT REPORTED Normal NONE [facility] Comment on above: Performed By: #### U A, UMICAO #### [facility] [address] [place] [address] Preparer: Rigo Luna MD Yeast LM Ql (Urine sed) NOT REPORTED Normal [facility] Comment on above: Performed By: #### U A, UMICAO #### [facility] [address] [place] [address] Preparer: Rigo Luna MD Vital Signs Date Time Vital Sign Value Performing Clinician Leathajosephine ramiro 12-22-2023 11:05-0500 Body temperature 97.11 [degF] Trice Aichholz [employer] Work Phone: [facility] 12-22-2023 11:05-0500 Diastolic blood pressure 78 mm[Hg] Trice Aichholz [employer] Work Phone: [facility] 12-22-2023 11:05-0500 Heart rate 76 /min Trice Aichholz [employer] Work Phone: [facility] 12-22-2023 11:05-0500 Respiratory rate 18 /min Trice Aichholz [employer] Work Phone: [facility] 12-22-2023 11:05-0500 SaO2% (BldA) [Mass fraction] 97 % Trice Aichholz [employer] Work Phone: [facility] 12-22-2023 11:05-0500 Systolic blood pressure 108 mm[Hg] Trice Aichholz [employer] HELPER Work Phone: [facility] Healthcare Encounters Encounter Date Encounter Type Care Provider Facility Start: 09-20-2024 End: 09-20-2024 Refill Tirce Aichholz [employer] Work Phone: [facility] Comment on above: Type 2 diabetes maryse itus with other specified complication, without long-term current use of insulin (CMS/HCC) (Primary Dx) Start: 09-18-2024 End: 09-18-2024 Refill Trice Aichholz [employer] Work Phone: [facility] Comment on above: Primary hypertension (CMS/HCC) Start: 09-17-2024 End: 09-17-2024 Refill Trice Aichholz TOOLMAKER HELPER Work Phone: [facility] Comment on above: Primary hypertension (CMS/HCC); Type 2 diabetes mellitus with other specified complication, without long-term current use of insulin (CMS/HCC); Bilateral lower extremity edema; Chronic painful diabetic neuropathy (CMS/HCC); Lumbar spondylosis; Mixed hyperlipidemia (CMS/HCC) Start: 08-16-2024 End: 08-16-2024 Refill Trice Loganz TOOLMAKER HELPER Work Phone: [facility] Comment on above: Type 2 diabetes maryse itus with other specified complication, without long-term current use of insulin ([facility]) Start: 08-07-2024 End: 08-07-2024 ambulatory TRICE J AICHHOLZ [facility] Start: 07-10-2024 End: 07-10-2024 ambulatory TRICE J AICHHOLZ [facility] Start: 06-28-2024 End: 06-28-2024 ambulatory TRICE AICHHOLZ Not Available Start: 01-11-2024 End: 01-11-2024 [facility] Start: 12-22-2023 Bamboo flowsheet Trice Loganz TOOLMAKER HELPER Work Phone: [facility] Start: 12-22-2023 Bamboo flowsheet Trice Aichholz TOOLMAKER HELPER Work Phone: [facility] Start: 12-22-2023 End: 12-22-2023 Patient encounter procedure Trice Loganz TOOLMAKER HELPER Work Phone: [facility] Comment on above: Encounter for subseq uent annual wellness visit (AWV) in Medicare patient (Primary Dx); BMI 30.0-30.9,adult; Primary hypertension (CMS/HCC); Neurogenic bladder; Bilateral lower extremity edema; Mixed hyperlipidemia (CMS/HCC); Type 2 diabetes mellitus with other specified complication, without long-term current use of insulin ([facility]) Start: 12-22-2023 End: 12-22-2023 ambulatory TRICE AICHHOLZ Not Available Start: 03-14-2023 End: 04-13-2023 ambulatory CONTAINER COORDINATOR TRICE AICHHOLZ Facility:H1 Start: 03-02-2023 End: 03-02-2023 ambulatory CONTAINER COORDINATOR TRICE AICHHOLZ Facility:[facility]1 Start: 02-14-2023 End: 03-11-2023 ambulatory CONTAINER COORDINATOR TRICE AICHHOLZ Facility:[facility]1 Start: 01-12-2023 End: 02-11-2023 ambulatory CONTAINER COORDINATOR TRICE SARAYHJAYJAYZ Facility:[facility]1 Start: 12-15-2022 End: 01-12-2023 ambulatory CONTAINER COORDINATOR TRICE SARAYHJAYJAYZ Facility:[facility]1 Start: 12-02-2022 End: 12-02-2022 ambulatory CONTAINER COORDINATOR TRICE SARAYHHOLZ Facility:[facility]1 Start: 11-15-2022 End: 12-15-2022 ambulatory CONTAINER COORDINATOR TRICE SARAYHJAYJAYZ Facility:[facility]1 Start: 10-14-2022 End: 11-14-2022 ambulatory CONTAINER COORDINATOR TRICE SARAYDIANEZ Facility:[facility]1 Start: 09-30-2022 ambulatory CONTAINER COORDINATOR TRICE ALTHEAJYAJAYZ Facil ity:H1 Start: 09-20-2022 End: 09-21-2022 ambulatory CONTAINER COORDINATOR TRICE SARAYHJAYJAYZ Facility:[facility]1 Start: 09-14-2022 End: 10-13-2022 ambulatory CONTAINER COORDINATOR TRICE SARAYDIANEZ Facility:[facility]1 Start: 09-03-2022 End: 09-03-2022 ambulatory CONTAINER COORDINATOR TRICE SARAYDIANEZ Facility:[facility]1 Start: 08-15-2022 End: 09-13-2022 ambulatory CONTAINER COORDINATOR TRICE SARAYDIANEZ Facility:[facility] Start: 07-15-2022 End: 08-14-2022 ambulatory ROGERS H MARCUS Facility:[facility]1 Start: 06-14-2022 End: 07-14-2022 ambulatory ROGERS H TOÑITOD Facility:H1 Start: 06-10-2022 End: 06-10-2022 ambulatory CONTAINER COORDINATOR TRICE LOGANZ Facility:[facility]1 Start: 05-14-2022 End: 06-11-2022 ambulatory ROGERS H MARCUS Facility:[facility]1 Start: 08-15-2020 End: 08-16-2020 Patient encounter procedure [facility] Start: 10-22-2019 End: 10-23-2019 Patient encounter procedure [facility] Procedures Date Procedure Procedure Detail Performing Clinician Start: 08-15-2020 Basic metabolic pane l [facility] Start: 08-15-2020 Hemoglobin glycosylated a1c [facility] Start: 10-22-2019 Culture bacterial qu anttative colony count urine TRICE SARAYSNOW Start: 10-22-2019 Urinalysis microscopic only TRICE PABLITO Start: 10-22-2019 Urnls dip stick/tabl et rgnt auto w/o microscopy TRICE SARAYJulesSNOW Plan of Treatment Date Care Activity Detail Author Start: 12-22-2025 Glaucoma screening Diabetes: R etinopathy Screening [facility] Start: 01-11-2025 Urine screening for protein Diabetes: Urine Protein Screening [facility] Start: 12-22-2024 Medicare Annual Well ness (AWV) Medicare Annual Wellness (AWV) [facility] Start: 12-22-2024 Pneumococcal Vaccine : 65+ Years (2 - PPSV23 or PCV20) Pneumococcal Vaccine: 65+ Years (2 - PPSV23 or PCV20) [facility] Comment on above: Postponed from 12/09 (Patient Refused) Start: 12-22-2024 Pneumococcal Vaccine : 65+ Years (2 of 2 - PPSV23 or PCV20) Pneumococcal Vaccine: 65+ Years (2 of 2 - PPSV23 or PCV20) [facility] Comment on above: Postponed from 12/09 (Patient Refused) Start: 10-10-2024 Hemoglobin A1c measurement Diabetes: Hemoglobin A1C [facility] Start: 07-15-2024 Influenza vaccination Influenza Vacc ine (#1) [facility] Start: 05-13-2024 Influenza vaccination Influenza Vacc ine (#1) [facility] Comment on above: Postponed from 07/15 (Patient Refused) Start: 12-22-2023 End: 12-22-2023 Patient encounter procedure 12/22/2023 11:00 AM EST Office Visit [facility] [address] [place] [id number] Trice Strong NP [address] [place] [id number] Arrived [facility] Comment on above: Arrived Start: 07-15-2023 Influenza vaccination Influenza Vacc ine (#1) [facility] Start: 08-12-2021 Hemoglobin A1c measurement Diabetes: Hemoglobin A1C [facility] Start: 12-09-2017 Pneumococcal Vaccine : 65+ Years (2 - PPSV23 or PCV20) Pneumococcal Vaccine: 65+ Years (2 - PPSV23 or PCV20) [facility] Start: 1957 Urine screening for protein Diabetes: Urine Protein Screening [facility] Start: 1948 Glaucoma screening Diabetes: R etinopathy Screening [facility] Start: 1938 Medicare Annual Well ness (AWV) Medicare Annual Wellness (AWV) [facility] Immunizations Immunization Date Immunization Notes Care Provider Fa cili 09-28-2019 Seasonal trivalent influenza vaccine, adjuvanted, preservative free Trice Aichholz TOOLMAKER HELPER Work Phone: [facility] 09-28-2019 influenza virus vacc ine, unspecified formulation Trice Aichholz TOOLMAKER HELPER Work Phone: [facility] 10-14-2017 pneumococcal conjuga te vaccine, 13 valent Trice Aichholz TOOLMAKER HELPER Work Phone: [facility] 08-04-2017 influenza, high dose seasonal, preservative-free Trice Aichholz TOOLMAKER HELPER Work Phone: [facility] 09-01-2016 influenza, high dose seasonal, preservative-free Trice Aichholz TOOLMAKER HELPER Work Phone: [facility] 09-01-2016 zoster vaccine, live Trice chholz TOOLMAKER HELPER Work Phone: [facility] Payers Date Payer Category Payer Medicare [employer]M MEDICARE ADVANTAGE [facility] MEDICARE ADVANTAGE [id number] 2017-Present [address] [place] [address] [id number] 2017 Medicare (Managed Care) [facility] [id number] 1959 Medicare [id number] 1938 Unknown [id number] 2.16.840.1.128994.3.579. 2.173 1938 Unknown [id number] 2.16.840.1.687955.3.579. 2.173 1938 Unknown [id number] 2.16.840.1.971430.3.579. 2.593 1938 Unknown [id number] 2.16.840.1.184310.3.579. 2.593 1938 Unknown [id number] 2.16.840.1.687957.3.579. 2.593 1938 Unknown [id number] 2.16.840.1.263185.3.579. 2.593 1938 Unknown [id number] 2.16.840.1.789516.3.579. 2.593 1938 Unknown [id number] 2.16.840.1.631235.3.579. 2.593 1938 Unknown [id number] 2.16.840.1.310837.3.579. 2.593 1938 Unknown [id number] 2.16.840.1.817284.3.579. 2.593 1938 Unknown [id number] 2.16.840.1.275811.3.579. 2.593 1938 Unknown [id number] 2.16.840.1.803151.3.579. 2.593 1938 Unknown [id number] 2.16.840.1.094296.3.579. 2.593 1938 Unknown [id number] 2.16.840.1.719999.3.579. 2.593 1938 Unknown [id number] 2.16.840.1.697294.3.579. 2.593 1938 Unknown [id number] 2.16.840.1.058707.3.579. 2.593 1938 Unknown [id number] 2.16.840.1.671431.3.579. 2.593 1938 Unknown [id number] 2.16.840.1.114006.3.579. 2.593 1938 Unknown [id number] 2.16.840.1.873534.3.579. 2.593 1938 Unknown [id number] 2.16.840.1.815158.3.579. 2.1259 1938 Unknown [id number] 2.16.840.1.963403.3.579. 2.1259 1938 Unknown [id number] 2.16.840.1.431683.3.579. 2.1286 1938 Unknown [id number] 2.16.840.1.588783.3.579. 2.1286 1938 Unknown [id number] 2.16.840.1.489454.3.579. 2.1286 Social History Date Type Detail Facility Start: 11-22-2023 Tobacco smoking status NYIS Never sm oked tobacco [facility] Start: 11-22-2023 End: 06-28-2024 Alcohol intake Ex-drinker (finding) [facility] Start: 11-22-2023 End: 12-22-2023 [facility] Start: 11-22-2023 End: 12-22-2023 Tobacco use panel [facility] Start: 11-22-2023 Alcohol Comment caffeine 3-4 c ups per day [facility] Start: 1940 Sex Assigned At Not on file [facility] Within the last year , have you been afraid of your partner or ex-partner? No [facility] Are you now , , , , never or living with a partner? [facility] How often to you hav e a drink containing alcohol? Never [facility] How many standard dr inks containing alcohol do you have on a typical day? Patient does not drink [facility] Do you feel stress - tense, restless, nervous, or anxious, or unable to sleep at night because your mind is troubled all the time - these days [OSQ] Only a little [facility] (I/We) worried wheth er (my/our) food would run out before (I/we) got money to buy more. Never true [facility] Medical Equipment Procedure Code Equipment Code Equipment Origin al Text Equipment Identifier Dates 1 each by Other route if needed Start: 03-29-2024 History of Present illness Narrative 12-22-2023 Trice Strong NP - 12/22/2023 12:38 PM Иван Strong, ADELA - 12/22/2023 12:37 PM Иван Strong NP - 12/22/2023 12:35 PM Иван Strong, ADELA - 12/22/2023 12:35 PM EST Note Date & Type Note Facility 12-22-2023 History of Presen t illness Narrative Associated Problem(s): Diabetes ([facility]) Check blood sugars daily, notify if <70 or >200. Take medications (pills or insulin) as directed. Monitor for s/s of hypoglycemia (sweaty, dizziness, nausea, vomiting, or shakiness). Watch for increase in thirst, urination, or appetite. Inspect feet frequently monitoring for open wounds , and also recommend yearly eye exam. Pt should attempt to remain as physically active as chronic conditions allow, as well as trying to follow a diet low in carbohydrates, and simple sugars. Associated Problem(s): Encounter for subsequent annual wellness visit (AWV) in Medicare patient Reviewed Ht/Wt/BMI Recommend eye exam yearly Recommend dental exams twice a year Exercises is recommended most days of the week (appropriate as chronic conditions allow) Follow up yearly and prn Associated Problem(s): Hyperlipidemia (CMS/HCC) Check labs Associated Problem(s): Bilateral lower extremity edema No significantly changed, however is sitting in wheelchair, or sitting most of the day Recommend elevation of legs as much as possible Associated Problem(s): Neurogenic bladder Still has not gone to see urology, I have stressed the importance of seeing them for ongoing management Associated Problem(s): Hypertension (CMS/HCC) At goal, no changes in med dose Left ankle repair sep 2023 BS 142 this morning before breakfast Images from the original note were not included. Radha Henning is a 82 y.o. male presents with chief complaint of No chief complaint on file. HPI: Here for AWV Indwelling catheter as well, still has not seen urology Hypertension This is a chronic problem. The current episode started more than 1 year ago. The problem is unchanged. The problem is controlled. Associated symptoms include peripheral edema. Pertinent negatives include no blurred vision, neck pain, palpitations or shortness of breath. There are no associated agents to hypertension. Risk factors for coronary artery disease include diabetes mellitus, dyslipidemia, obesity, male gender and sedentary lifestyle. Past treatments include diuretics and YULIYA inhibitors. The current treatment provides significant improvement. There are no compliance problems. Diabetes He presents for his follow-up diabetic visit. He has type 2 diabetes mellitus. His disease course has been stable. There are no hypoglycemic associated symptoms. Pertinent negatives for hypoglycemia include no dizziness, nervousness/anxiousness, seizures or tremors. Associated symptoms include foot paresthesias and weakness. Pertinent negatives for diabetes include no blurred vision, no foot ulcerations, no polydipsia, no polyphagia and no polyuria. There are no hypoglycemic complications. Symptoms are stable. Diabetic complications include peripheral neuropathy. Risk factors for coronary artery disease include dyslipidemia, diabetes mellitus, male sex, obesity and sedentary lifestyle. Current diabetic treatment includes oral agent (dual therapy). He is compliant with treatment all of the time. He never participates in exercise. There is no change in his home blood glucose trend. His overall blood glucose range is 140-180 mg/dl. An YULIYA inhibitor/angiotensin II receptor jake is being taken. Eye exam is not current. SUBJECTIVE: MEDICATIONS: Current Outpatient Medications Medication Instructions amLODIPine (Norvasc) 10 MG tablet 1 tablet, Oral, Daily clobetasol (Temovate) 0.05 % cream 1 application , Topical, Every 12 hours Continuous Blood Gluc Sensor (CitiLogicsStyle Abi 14 Day Sensor) misc 1 each, Does not apply, Daily, Change sensor every 14 days furosemide (LASIX) 40 mg, Oral, Daily gabapentin (Neurontin) 100 MG capsule 1 capsule, Oral, 3 times daily glimepiride (Amaryl) 1 MG tablet 1 tablet, Oral, 3 times daily hydrOXYzine HCl (ATARAX) 25 mg, Oral, Every 8 hours PRN Jardiance 25 MG 1 tablet, Oral, Daily lisinopril 40 MG tablet 1 tablet, Oral, Daily loratadine (Claritin) 10 MG tablet 1 tablet, Oral, Every 24 hours metFORMIN (GLUCOPHAGE) 1,000 mg, Oral, 2 times daily with meals, Take 1 tablet by mouth in the morning and 1 tablet in the evening. Take with meals. pioglitazone (Actos) 30 MG tablet 1 tablet, Oral, Every morning simvastatin (ZOCOR) 40 mg, Oral, Nightly terbinafine (LamISIL) 1 % cream 1 application , Topical, 2 times daily, X 2-3 weeks, prn for flares warfarin (COUMADIN) 7.5 mg, Oral, Daily ALLERGIES: No Known Allergies REVIEW OF SYMPTOMS: Review of Systems Constitutional: Negative for activity change, appetite change and unexpected weight change. HENT: Negative for ear pain, nosebleeds, sneezing, trouble swallowing and voice change. Eyes: Negative for blurred vision, pain, discharge and visual disturbance. Respiratory: Negative for apnea, chest tightness, shortness of breath and wheezing. Cardiovascular: Positive for leg swelling. Negative for palpitations. Gastrointestinal: Negative for abdominal distention, blood in stool, constipation and diarrhea. Genitourinary: Negative for decreased urine volume, difficulty urinating, dysuria and hematuria. Has carrera Musculoskeletal: Negative for neck pain. Skin: Negative for color change. Neurological: Positive for weakness and numbness. Negative for dizziness, tremors and seizures. Psychiatric/Behavioral: Negative for agitation, decreased concentration, hallucinations, self-injury and suicidal ideas. The patient is not nervous/anxious. Hematological: Negative for adenopathy. Does not bruise/bleed easily. Endocrine: Negative for cold intolerance, heat intolerance, polydipsia, polyphagia and polyuria. Allergic/Immunologic: Negative for environmental allergies and food allergies. PAST MEDICAL HISTORY Past Medical History: Diagnosis Date A-fib ([facility]) 11/24/2023 Anemia 12/22/2023 anamia Arthritis 12/22/2023 Depression ([facility]) 12/22/2023 Diabetes ([facility]) 10/17/2023 DVT (deep venous thrombosis) ([facility]) Hyperlipidemia ([facility]) 11/24/2023 Hypertension ([facility]) 11/24/2023 Obesity 12/22/2023 Pruritus 11/24/2023 Past Surgical History: Procedure Laterality Date BACK SURGERY OTHER SURGICAL HISTORY 04/27/2019 Medial Branch Block L4 and L5 family history is not on file. OBJECTIVE: Visit Vitals BP 108/78 (BP Location: Right arm, Patient Position: Sitting, BP Cuff Size: Adult long) Pulse 76 Temp 97.1 F (Temporal) Resp 18 SpO2 97% Smoking Status Never Physical Exam Vitals reviewed. Constitutional: Appearance: Normal appearance. HENT: Head: Normocephalic. Right Ear: External ear normal. Left Ear: External ear normal. Nose: Nose normal. Mouth/Throat: Mouth: Mucous membranes are moist. Pharynx: Oropharynx is clear. Eyes: Extraocular Movements: Extraocular movements intact. Conjunctiva/sclera: Conjunctivae normal. Neck: Vascular: No carotid bruit. Cardiovascular: Rate and Rhythm: Normal rate and regular rhythm. Pulses: Normal pulses. Heart sounds: Normal heart sounds. Pulmonary: Effort: Pulmonary effort is normal. Breath sounds: Normal breath sounds. Abdominal: General: Bowel sounds are normal. Palpations: Abdomen is soft. Genitourinary: Comments: Indwelling catheter Musculoskeletal: Cervical back: Neck supple. Right lower leg: Edema present. Left lower leg: Edema present. Skin: General: Skin is warm and dry. Capillary Refill: Capillary refill takes 2 to 3 seconds. Neurological: General: No focal deficit present. Mental Status: He is alert. Psychiatric: Mood and Affect: Mood normal. Behavior: Behavior normal. Thought Content: Thought content normal. Judgment: Judgment normal. ASSESSMENT AND PLAN: No follow-ups on file. Problem List Items Addressed This Visit Diabetes ([facility]) Check blood sugars daily, notify if <70 or >200. Take medications (pills or insulin) as directed. Monitor for s/s of hypoglycemia (sweaty, dizziness, nausea, vomiting, or shakiness). Watch for increase in thirst, urination, or appetite. Inspect feet frequently monitoring for open wounds , and also recommend yearly eye exam. Pt should attempt to remain as physically active as chronic conditions allow, as well as trying to follow a diet low in carbohydrates, and simple sugars. Hypertension (CMS/HCC) - Primary At goal, no changes in med dose Hyperlipidemia (CMS/HCC) Check labs Bilateral lower extremity edema No significantly changed, however is sitting in wheelchair, or sitting most of the day Recommend elevation of legs as much as possible Neurogenic bladder Still has not gone to see urology, I have stressed the importance of seeing them for ongoing management BMI 30.0-30.9,adult Encounter for subsequent annual wellness visit (AWV) in Medicare patient Reviewed Ht/Wt/BMI Recommend eye exam yearly Recommend dental exams twice a year Exercises is recommended most days of the week (appropriate as chronic conditions allow) Follow up yearly and prn documented in this encounter [facility] Evaluation note Note Date & Type Note Facility Evaluation note Diagnosis Encounter for subsequent annual wellness visit (AWV) in Medicare patient- Primary BMI 30.0-30.9,adult Primary hypertension (CMS/HCC) Unspecified essential hypertension Neurogenic bladder Neurogenic bladder, NOS Bilateral lower extremity edema Mixed hyperlipidemia (CMS/HCC) Mixed hyperlipidemia Type 2 diabetes mellitus with other specified complication, without long-term current use of insulin (CMS/HCC) documented in this encounter [facility] Evaluation note Note Date & Type Note Facility Evaluation note Diagnosis Type 2 diabetes mellitus with other specified complication, without long-term current use of insulin (CMS/HCC) documented in this encounter [facility] Evaluation note Note Date & Type Note Facility Evaluation note Diagnosis Encounter for subsequent annual wellness visit (AWV) in Medicare patient- Primary BMI 30.0-30.9,adult Primary hypertension (CMS/HCC) Unspecified essential hypertension Neurogenic bladder Neurogenic bladder, NOS Bilateral lower extremity edema Mixed hyperlipidemia (CMS/HCC) Mixed hyperlipidemia Type 2 diabetes mellitus with other specified complication, without long-term current use of insulin (CMS/HCC) Type 2 diabetes mellitus with other specified complication, without long-term current use of insulin (CMS/HCC)- Primary Atrial fibrillation, unspecified type (CMS/HCC) Primary hypertension (CMS/HCC) Unspecified essential hypertension Bilateral lower extremity edema Chronic painful diabetic neuropathy (CMS/HCC) Lumbar spondylosis Lumbosacral spondylosis without myelopathy Lesion of skin of nose Primary hypertension (CMS/HCC) Unspecified essential hypertension Type 2 diabetes mellitus with other specified complication, without long-term current use of insulin (CMS/HCC) Bilateral lower extremity edema Chronic painful diabetic neuropathy (CMS/HCC) Lumbar spondylosis Lumbosacral spondylosis without myelopathy Mixed hyperlipidemia (CMS/HCC) Mixed hyperlipidemia documented in this encounter [facility] Evaluation note Note Date & Type Note Facility Evaluation note Diagnosis Encounter for subsequent annual wellness visit (AWV) in Medicare patient- Primary BMI 30.0-30.9,adult Primary hypertension (CMS/HCC) Unspecified essential hypertension Neurogenic bladder Neurogenic bladder, NOS Bilateral lower extremity edema Mixed hyperlipidemia (CMS/HCC) Mixed hyperlipidemia Type 2 diabetes mellitus with other specified complication, without long-term current use of insulin (CMS/HCC) Type 2 diabetes mellitus with other specified complication, without long-term current use of insulin (CMS/HCC)- Primary Atrial fibrillation, unspecified type (CMS/HCC) Primary hypertension (CMS/HCC) Unspecified essential hypertension Bilateral lower extremity edema Chronic painful diabetic neuropathy (CMS/HCC) Lumbar spondylosis Lumbosacral spondylosis without myelopathy Lesion of skin of nose Primary hypertension (CMS/HCC) Unspecified essential hypertension documented in this encounter [facility] Evaluation note Note Date & Type Note Facility Evaluation note Diagnosis Encounter for subsequent annual wellness visit (AWV) in Medicare patient- Primary BMI 30.0-30.9,adult Primary hypertension ([facility]) Unspecified essential hypertension Neurogenic bladder Neurogenic bladder, NOS Bilateral lower extremity edema Mixed hyperlipidemia ([facility]) Mixed hyperlipidemia Type 2 diabetes mellitus with other specified complication, without long-term current use of insulin ([facility]) Type 2 diabetes mellitus with other specified complication, without long-term current use of insulin ([facility])- Primary Atrial fibrillation, unspecified type ([facility]) Primary hypertension ([facility]) Unspecified essential hypertension Bilateral lower extremity edema Chronic painful diabetic neuropathy ([facility]) Lumbar spondylosis Lumbosacral spondylosis without myelopathy Lesion of skin of nose Type 2 diabetes mellitus with other specified complication, without long-term current use of insulin ([facility])- Primary documented in this encounter [facility] Summary Purpose Family History No Family History Records FoundNo Family History Records FoundNo Family History Records FoundNo Family History Records Found Advance Directives No Advanced Directives Records FoundNo Advanced Directives Records FoundNo Advanced Directives Records FoundNo Advanced Directives Records Found Additional Source Comments (unrecognized sect ion and content) No Status Records FoundNo Status Records FoundNo Status Records FoundNo Status Records Found INFORMATION SOURCE (unrecogn ized section and content) DATE CREATED AUTHOR 08/17/2020 [facility] DATE CREATED AUTHOR AUTHOR'S ORGANIZ ATION 04/22/2023 [facility] DATE CREATED AUTHOR AUTHOR'S ORGANIZ ATION 06/30/2024 [facility] DATE CREATED AUTHOR AUTHOR'S ORGANIZ ATION 08/11/2024 [facility] Care Teams (unrecognized sec tion and content) Lottery Manager Relationship Specialty Start Date End Date Sourav Dodson MD [address] [place] [phone] PCP - General Family Medicine 11/21/23 Trice Strong NP [address] [place] [phone] Nurse Practitioner Family Medicine 11/21/23 Lottery Manager Relationship Specialty Start Date End Date Sourav Dodson MD [address] [place] [phone] PCP - General Family Medicine 11/21/23 Trice Strong NP [address] [place] [phone] Nurse Practitioner Family Medicine 11/21/23 Lottery Manager Relationship Specialty Start Date End Date Sourav Dodson MD [address] [place] [phone] PCP - General Family Medicine 06/28/24 Trice tSrong NP [address] [place] [phone] Nurse Practitioner Family Medicine 11/21/23 Trice Strong NP [address] [place] [phone] Nurse Practitioner Family Medicine 06/28/24 Zaira Lance LPN Licensed Practical Nurse Family Medicine 07/27/24 Lottery Manager Relationship Specialty Start Date End Date Sourav Dodson MD [address] [place] [phone] PCP - General Family Medicine 06/28/24 Trice Strong NP [address] [place] [phone] Nurse Practitioner Family Medicine 11/21/23 Trice Strong NP [address] [place] [phone] Nurse Practitioner Family Medicine 06/28/24 Zaira Lance LPN Licensed Practical Nurse Family Medicine 07/27/24 Lottery Manager Relationship Specialty Start Date End Date Sourav Dodson MD [address] [place] [phone] PCP - General Family Medicine 06/28/24 Trice Strong NP [address] [place] [phone] PCP - Adán SNOW 08/14/24 Trice Strong NP [address] [place] [phone] Nurse Practitioner Family Medicine 11/21/23 Trice Strong NP [address] [place] [phone] Nurse Practitioner Family Medicine 06/28/24 Zaira Lance LPN Licensed Practical Nurse Family Medicine 07/27/24 Lottery Manager Relationship Specialty Start Date End Date Sourav Dodson MD [address] [place] [phone] PCP - General Family Medicine 06/28/24 Trice Strong NP [address] [place] [phone] PCP - Adán SNOW 08/14/24 Trice Strong NP [address] [place] [address] Nurse Practitioner Family Medicine 11/21/23 Trice Strong NP [address] [place] [address] Nurse Practitioner Family Medicine 06/28/24 Zaira Lance LPN Licensed Practical Nurse Family Medicine 07/27/24 FOR RECORDS PERTAINING TO PATIENTS WHO ARE [...] BE BASED ON THE PRIMARY CLINICAL RECORDS. [facility] [employer] provides no warranty or guarantee of the accuracy or completeness of information in this document.
[2024-09-23 22:09] LABS: Basophils Percent Auto 0.4 % (0.2-2.0); Hematocrit 41.4 % (42.0-54.0); Hemoglobin 13.4 g/dL (14.0-18.0); Immature Granulocytes Abs Auto 0.04 10^3/uL (0.00-0.03); Immature Granulocytes Pct Auto 0.4 % (0.0-0.5); Lymphocytes Absolute Auto 1.6 10^3/uL (1.2-3.8); Lymphocytes Percent Auto 17.8 % (20.5-60.0); Mean Corpuscular HGB Conc 32.4 g/dL (29.9-35.2); Mean Corpuscular Hemoglobin 28.5 pg (25.9-34.0); Mean Corpuscular Volume 88.1 fL (80.0-94.0); Mean Platelet Volume 9.1 fL (9.5-13.5); Monocytes Absolute Auto 1.3 10^3/uL (0.3-0.8); Monocytes Percent Auto 13.7 % (1.7-12.0); Neutrophils Absolute Auto 6.2 10^3/uL (1.4-6.5); Neutrophils Percent Auto 67.7 % (43.0-75.0); Platelet Count 273 10^3/uL (150-450); Red Cell Distribution Width 15.1 % (11.0-15.0); White Blood Count 9.1 10^3/uL (4.0-11.0)
[2024-09-23 22:18] LABS: Anion Gap 20.6; BUN Creatinine Ratio 13.7; Calcium 8.6 mg/dL (8.5-10.1); Carbon Dioxide 22.7 mmol/L (21.0-32.0); Chloride 102 mmol/L (98-107); Estimated GFR (African America 39 (>=60 mL/min/1.73m^2); Estimated GFR (Non-African Ame 32 (>=60 mL/min/1.73m^2); Glucose 339 mg/dL (74-106); Potassium 4.3 mmol/L (3.5-5.1); Sodium 141 mmol/L (136-145)
[2024-09-23 22:25] LABS: Alanine Aminotransferase 16 U/L (16-63); Albumin Globulin Ratio 0.6; Albumin Level 2.9 g/dL (3.4-5.0); Alkaline Phosphatase 92 U/L (46-116); Aspartate Amino Transferase 23 U/L (15-37); Bilirubin Direct 0.1 mg/dL (0.0-0.2); Bilirubin Total 0.2 mg/dL (0.2-1.0); Globulin 4.7 g/dL; Total Protein 7.6 g/dL (6.4-8.2)
[2024-09-23 23:28] LABS: Bilirubin Urine NEGATIVE (NEGATIVE); Blood Urine LARGE (NEGATIVE); Glucose Urine UA >=1000 mg/dL (NEGATIVE); Ketones Urine NEGATIVE (NEGATIVE); Leukocyte Esterase Urine SMALL (NEGATIVE); Nitrite Urine POSITIVE (NEGATIVE); Protein Urine 100 mg/dL (NEG/TRACE); Urobilinogen Urine 0.2 EU/dL (0.2-1.0); pH Urine 5.5 (5.0-9.0)
[2024-09-23 23:56] LABS: Clarity Urine TURBID (CLEAR); Color Urine YELLOW (YELLOW)
[2024-09-23 23:57] LABS: Bacteria Urine LARGE #/HPF (NONE SEEN); Cast Seen? NONE SEEN #/LPF (NONE SEEN); Crystals Seen? None Seen #/HPF (None Seen); Mucus Urine LARGE (NONE SEEN); Squamous Epithelial Cell Urine NONE SEEN #/LPF (NONE/RARE); Urine Culture Indicated YES; WBC Urine >100 #/HPF (NONE SEEN)
[2024-09-24] VITALS (62 sets, daily range): BP systolic 94–140; BP diastolic 39–80; PULSE 79–115; TEMP 36.5–36.6; O2SAT 87–97; BMI 27.8
[2024-09-24 00:15] LABS: Influenza Virus A Antigen Negative; Influenza Virus B Antigen Negative; Internal Control Within Normal Limits
[2024-09-24 00:17] LABS: SARS-CoV-2 Ag POSITIVE (NEGATIVE)
[2024-09-24] MEDS: CEFTRIAXONE 1,000 MG in 0.9 % SODIUM CHLORIDE 50 ML 100 MG IV (00:33)
[2024-09-24] MEDS: DEXAMETHASONE SOD PHOS 10 MG/ML VIAL 6 MG IV (01:06)
[2024-09-24] MEDS: ENOXAPARIN SODIUM 40 MG/0.4 ML SYRINGE SUBQ ×2 (01:19→22:35)
[2024-09-24 05:44] LABS: Basophils Percent Auto 0.4 % (0.2-2.0); Hematocrit 40.5 % (42.0-54.0); Immature Granulocytes Abs Auto 0.03 10^3/uL (0.00-0.03); Immature Granulocytes Pct Auto 0.3 % (0.0-0.5); Lymphocytes Absolute Auto 1.2 10^3/uL (1.2-3.8); Lymphocytes Percent Auto 13.3 % (20.5-60.0); Mean Corpuscular HGB Conc 32.1 g/dL (29.9-35.2); Mean Corpuscular Hemoglobin 28.2 pg (25.9-34.0); Mean Corpuscular Volume 87.9 fL (80.0-94.0); Mean Platelet Volume 8.9 fL (9.5-13.5); Monocytes Absolute Auto 0.4 10^3/uL (0.3-0.8); Monocytes Percent Auto 4.8 % (1.7-12.0); Neutrophils Absolute Auto 7.5 10^3/uL (1.4-6.5); Neutrophils Percent Auto 81.2 % (43.0-75.0); Platelet Count 235 10^3/uL (150-450); Red Blood Count 4.61 10^6/uL (4.70-6.10); Red Cell Distribution Width 15.2 % (11.0-15.0); White Blood Count 9.2 10^3/uL (4.0-11.0)
[2024-09-24 06:02] LABS: Alanine Aminotransferase 19 U/L (16-63); Albumin Globulin Ratio 0.6; Albumin Level 2.7 g/dL (3.4-5.0); Alkaline Phosphatase 86 U/L (46-116); Anion Gap 17.3; Aspartate Amino Transferase 20 U/L (15-37); BUN Creatinine Ratio 17.4; Bilirubin Total 0.3 mg/dL (0.2-1.0); Calcium 9.1 mg/dL (8.5-10.1); Carbon Dioxide 23.1 mmol/L (21.0-32.0); Chloride 103 mmol/L (98-107); Estimated GFR (African America 46 (>=60 mL/min/1.73m^2); Estimated GFR (Non-African Ame 38 (>=60 mL/min/1.73m^2); Globulin 4.9 g/dL; Glucose 322 mg/dL (74-106); Magnesium 2.3 mg/dL (1.8-2.4); Potassium 4.4 mmol/L (3.5-5.1); Sodium 139 mmol/L (136-145); Total Protein 7.6 g/dL (6.4-8.2)
[2024-09-24 06:16] LABS: Troponin I High Sensitivity 24.8 pg/mL (4.0-76.1)
[2024-09-24] MEDS: 0.9 % SODIUM CHLORIDE 1,000 ML 75 ML IV ×2 (06:30→22:33)
[2024-09-24] MEDS: AZITHROMYCIN 500 MG in 0.9 % SODIUM CHLORIDE 250 ML 250 MG IV (06:31)
[2024-09-24 06:57] LABS: Lactate/Lactic Acid 1.1 mmol/L (0.4-2.0)
[2024-09-24 07:09] LABS: INR 2.74; Prothrombin Time 26.3 sec (9.0-11.6)
--- NOTE | 2024-09-24 08:11 | P.HP_ITS ---
HPI H&P: HPI History of Present Illness Narrative: Patient presented to emergency room with increasing cough and shortness of breath. Found to have significant hypoxia with an O2 sat of 86%, also COVID- positive. With acute hypoxia and COVID-positive, patient will be admitted for workup and treatment of same. Patient is unvaccinated When I saw patient in the emergency room, resting company bed did have some mild conversational dyspnea, cough throughout the evaluation sounding productive.. No other complaints. Opioid HPI Opioid Management Most Recent Pain and Opioid Data: No Data to Display Review of Systems ROS Status of ROS 10 or more systems reviewed and unremark able except as noted in history and below Meds Home Medications and Allergies Home Medications ?Medication ?Instructions ?Recorded ?Confirmed ?Type amlodipine 10 mg tablet 10 mg PO .QD 09/23/24 09/24/24 History empagliflozin 25 mg tablet 25 mg PO .QD 09/23/24 09/24/24 History (Jardiance) furosemide 40 mg tablet 40 mg PO .QD 09/23/24 09/24/24 History gabapentin 300 mg capsule 300 mg PO Q12H 09/23/24 09/24/24 History glimepiride 1 mg tablet 1 mg PO BIDWM 09/23/24 09/24/24 History hydroxyzine HCl 25 mg tablet 25 mg PO Q8H PRN itching 09/23/24 09/24/24 History lisinopril 40 mg tablet 40 mg PO .QD 09/23/24 09/24/24 History metformin 1,000 mg tablet 1,000 mg PO BIDWM 09/23/24 09/24/24 History pioglitazone 30 mg tablet 30 mg PO .QD 09/23/24 09/24/24 History simvastatin 40 mg tablet 40 mg PO .QHS 09/23/24 09/24/24 History warfarin 7.5 mg tablet 7.5 mg PO .qd@17 09/23/24 09/24/24 History Allergies Allergy/AdvReac Type Severity Reaction Status Date / Time No Known Drug Allergies Allergy Verified 09/23/24 20:39 Exam Constitutional Vital Signs, click to edit/add: Last Vital Signs Temp 98.2 F 09/23/24 20:35 Pulse 100 H 09/24/24 06:30 Resp 24 H 09/24/24 06:30 BP 103/49 09/24/24 06:00 Pulse Ox 94 L 09/24/24 06:39 O2 Del Method Nasal Cannula 09/24/24 06:39 O2 Flow Rate 2 09/24/24 06:39 Documenting provider has reviewed patient's vital signs: yes Common normals: apparent distress (Persistent cough and mild conversational dyspnea) Chest Common normals: inspection of chest normal Respiratory Common normals: abnormal respiratory effort (Persisting cough and mild conversational dyspnea) Auscultation: rhonchi; no rales Cardio Common normals: regular rhythm Rate: tachycardic GI Common normals: Normal to inspection, nondistended, normoactive bowel sounds present and soft to palpation Extremity Common normals: normal to inspection Results Labs Labs: Short CBC 09/23/24 09/24/24 Range/Units 21:00 05:34 WBC 9.1 9.2 (4.0-11.0) 10^3/uL Hgb 13.4 L 13.0 L (14.0-18.0) g/dL Hct 41.4 L 40.5 L (42.0-54.0) % Plt Count 273 235 (150-450) 10^3/uL BMP 09/23/24 09/24/24 21:00 05:34 Sodium 141 139 Potassium 4.3 4.4 Chloride 102 103 Carbon Dioxide 22.7 23.1 BUN 27.0 H 30.0 H Creatinine 1.97 H 1.72 H Glucose 339 H 322 H Calcium 8.6 9.1 Liver Function 09/23/24 09/24/24 Range/Units 21:00 05:34 Total Bilirubin 0.2 0.3 (0.2-1.0) mg/dL Direct Bilirubin 0.1 (0.0-0.2) mg/dL AST 23 20 (15-37) U/L ALT 16 19 (16-63) U/L Alkaline Phosphatase 92 86 (46-116) U/L Albumin 2.9 L 2.7 L (3.4-5.0) g/dL Urine 09/23/24 Range/Units 23:11 Urine Color Yellow (YELLOW) Urine Clarity Turbid A (CLEAR) Urine pH 5.5 (5.0-9.0) Ur Specific Boaz 1.010 (1.005-1.025) Urine Protein 100 A (NEG/TRACE) mg/dL Urine Glucose (UA) >=1000 A (NEGATIVE) mg/dL Assessment and Plan Assessment and Plan (1) Generalized weakness: (2) Urinary tract infection: (3) COVID-19: Plan Admission findings: Sinus tachycardia, respiratory distress, hypotension, acute hypoxia with O2 sat of 86%, acute kidney injury with baseline creatinine of 1.55, creatinine admission 1.97 which is 127% above baseline, white blood cell count normal but white blood cell count consistent with acute bacterial process with left shift, positive urinalysis and positive COVID-19 Acute COVID-19 with hypoxia-start remdesivir, steroids, inhalers, IV antibiotics. Adding Zyrtec and Pepcid. Acute UTI-culture pending Iron deficiency anemia-monitor daily NIDDM-insulin sliding scale Elevated INR-therapeutic Hypertension-continue with home medications Diabetic peripheral neuropathy-continue with home medications Admission findings: Patient is unvaccinated for COVID-19, presented with increasing cough and shortness of breath and acute hypoxia, with the acute hypoxia in unvaccinated starting patient on remdesivir. This will be a 5-day cycle, medically necessary treatment will span 2 midnights. Inpatient status.
[2024-09-24 09:05] LABS: Glucometer 271 mg/dL (74-106)
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
--- NOTE | 2024-09-24 10:06 | PC.NURSE ---
1006 - TRIED CALLING PT LASHAUN TO INFORM HER OF PT'S ADMISSION STATUS. UNABLE TO LEAVE MESSAGE.
--- OUTSIDE RECORDS SUMMARY | 2024-09-24 10:11 | XMS_ITS | CCD ---
Author Organization [facility] Care Team Providers Care Finished Garment Inspector Name Role Phone BENEDICT STRONGA JDejuan Referring Unavailable AICHHOLZ, TRICE JDejuan Referring Unavailable AICHHOLZ, GREEN END WORKER TRICE Primary Care Unavailable FAWWAD, ROGERS H Attending Unavailable FAWWAD, ROGERS H Admitting Unavailable AICHHOLZ, GREEN END WORKER TRICE Primary Care Unavailable FAWWAD, ROGERS H Attending Unavailable FAWWAD, ROGERS H Admitting Unavailable AICHHOLZ, GREEN END WORKER TRICE Primary Care Unavailable FAWWAD, ROGERS H Attending Unavailable FAWWAD, ROGERS H Admitting Unavailable AICHHOLZ, GREEN END WORKER TRICE Primary Care Unavailable AICHHOLZ, GREEN END WORKER TRICE Admitting Unavailable AICHHOLZ, GREEN END WORKER TRICE Attending Unavailable AICHHOLZ, GREEN END WORKER TRICE Primary Care Unavailable DR SOURAV DODSON Consulting Unavailable NADERER, DR SOURAV Stafford Attending Unavailable DR SOURAV DODSON Admitting Unavailable AICHHOLZ, GREEN END WORKER TRICE Primary Care Unavailable AICHHOLZ, GREEN END WORKER TRICE Admitting Unavailable AICHHOLZ, GREEN END WORKER TRICE Consulting Unavailable AICHHOLZ, GREEN END WORKER TRICE Attending Unavailable AICHHOLZ, GREEN END WORKER TRICE Primary Care Unavailable FAWWAD, ROGERS H Attending Unavailable FAWWAD, ROGERS H Admitting Unavailable AICHHOLZ, GREEN END WORKER TRICE Primary Care Unavailable FAWWAD, ROGERS H Attending Unavailable FAWWAD, ROGERS H Admitting Unavailable AICHHOLZ, GREEN END WORKER TRICE Primary Care Unavailable FAWWAD, ROGERS H Attending Unavailable FAWWAD, ROGERS H Admitting Unavailable FAWWAD, ROGERS H Attending Unavailable AICHHOLZ, GREEN END WORKER TRICE Primary Care Unavailable FAWWAD, ROGERS H Admitting Unavailable AICHHOLZ, GREEN END WORKER TRICE Primary Care Unavailable FAWWAD, ROGERS H Attending Unavailable FAWWAD, ROGERS H Admitting Unavailable AICHHOLZ, GREEN END WORKER TRICE Primary Care Unavailable FAWWAD, ROGERS H Attending Unavailable FAWWAD, ROGERS H Admitting Unavailable FAWWAD, ROGERS H Admitting Unavailable AICHHOLZ, GREEN END WORKER TRICE Primary Care Unavailable FAWWAD, ROGERS H Attending Unavailable FAWWAD, ROGERS H Admitting Unavailable FAWWAD, ROGERS H Attending Unavailable AICHHOLZ, GREEN END WORKER TRICE Primary Care Unavailable AICHHOLZ, GREEN END WORKER TRICE Primary Care Unavailable BANDAR ., GENEVIEVE Consulting Unavailable BANDAR ., GENEVIEVE Attending Unavailable BANDAR ., GENEVIEVE Admitting Unavailable GABRIELLA PULIDO Consulting Unavailable AICHHOLZ, GREEN END WORKER TRICE Primary Care Unavailable AICHHOLZ, GREEN END WORKER TRIEC Consulting Unavailable AICHHOLZ, GREEN END WORKER TRICE Attending Unavailable AICHHOLZ, GREEN END WORKER TRICE Admitting Unavailable AICHHOLZ, GREEN END WORKER TRICE Primary Care Unavailable AICHHOLZ, GREEN END WORKER TRICE Consulting Unavailable AICHHOLZ, GREEN END WORKER TRICE Attending Unavailable AICHHOLZ, GREEN END WORKER TRICE Admitting Unavailable Aichholz RFID TECHNICIAN, Trice Unavailable Sourav Dodson MD Primary Care Provider [phone] AICHHOLZ, TRICE Attending Unavailable AICHHOLZ, TRICE Attending Unavailable AICHHOLZ, TRICE J Referring Unavailable SOURAV DODSON Primary Care Unavailable AICHHOLZ, TRICE J Referring Unavailable SOURAV DODSON Primary Care Unavailable AICHHOLZ, TRICE J Referring Unavailable SOURAV DODSON Primary Care Unavailable Aichholz RFID TECHNICIAN, Trice Unavailable Sourav Dodson MD Primary Care Provider [phone] Aichholz RFID TECHNICIAN, Trice Unavailable Zaira Lance LPN Unavailable Unavailable Aichholz RFID TECHNICIAN, Trice Unavailable Medications Current Medications Medication Drug Class(es) Dates Sig (Normalized) Sig (Original) amLODIPine 10 mg oral tablet (7 sources) Dihydropyridine Calcium Channel Jake Start: 06-11-2024 End: 12-16-2024 take 1 tablet by mouth once daily amLODIPine (Norvasc) 10 MG tablet Indications: Primary hypertension (CMS/[facility]) Take 1 tablet (10 mg) by mouth [...] Gluc Sensor (FreeStyle Abi 14 Day Sensor) [facility] Indications: Type 2 diabetes mellitus with other specified complication, without long-term current use of insulin ([facility]) 1 each in the morning. Change sensor every 14 days. 2 each 12 10/17/2023 Active Continuous Glucose Agency Trainer (FreeStyle Abi 2 Guy) device (4 sources) Start: 06-18-2024 End: 09-26-2024 Continuous Glucose Agency Trainer (FreeStyle Abi 2 Guy) device Indications: Type 2 diabetes mellitus with other specified complication, without long-term current use of insulin ([facility]) 1 each Daily 1 each 1 06/18/2024 09/26/2024 Active Continuous Glucose Sensor (FreeStyle Abi 2 Sensor) misc (2 sources) Start: 09-20-2024 End: 10-18-2024 Continuous Glucose Sensor (FreeStyle Abi 2 Sensor) [facility] Indications: Type 2 diabetes mellitus with other specified complication, without long-term current use of insulin ([facility]) 1 each Daily for 28 days 2 [...] complication, without long-term current use of insulin (CMS/[facility]) 1 pill with breakfast, and 2 pills [...] Onset: 03-12-2023 Episodic Other aftercare (1 source) group home (current) use of anticoagulants; Translations: [[facility] CURRNT USE ANTICOAGULANTS] Onset: 04-13-2023 Episodic Other [...] 12-22-2023 Episodic Other aftercare (1 source) Other long term acute care registered nurse (current) drug therapy; Translations: [[facility] CURRENT DRUG THERAPY] Onset: 12-06-2022 Episodic Other aftercare (1 source) long term acute care registered nurse (current) use of oral hypoglycemic drugs; Translations: [[facility] USE ORAL HYPOGLYCEMIC DX] Onset: 12-06-2022 Episodic [...] LM Ql (Urine sed) PRESENT Abnormal NONE [facility] Comment on above: Performed By: #### C SHANELL, CBCA #### [facility] ([id number]) [address] [place] [address], [place] [address] #### 54057-2 #### [facility] ([id number]) [address] [place] [address], [address] [place] [address] Bilirubin Ql (U) Negative Normal NEG [facility] Comment on above: Performed By: #### C MP, CBCA #### [facility] ([id number]) [address] [place] [address] #### [id number] #### [facility] ([id number]) [address], [address] [place] [address] BLOOD/HGB SMALL Abnormal NEG [facility] Comment on above: Performed By: #### Gricel REECE CBCA #### [facility] ([id number]) [address] [place] [address] 89641 #### [id number] #### [facility] ([id number]) [address], [address] [place] [address] Color (U) YELLOW Normal YELLOW [facility] Comment on above: Performed By: #### Gricel REECE CBCA #### [facility] ([id number]) [address] [place] [address] 23296 #### 60306-3 #### [facility] ([id number]) [address], [address] [place] [address] EPITHELIAL CASTS 5 to 10 Normal 0 [facility] Comment on above: Performed By: #### Gricel REECE, CBCA #### [facility] ([id number]) [address] [place] [address] 25699 #### [id number] #### [facility] ([id number]) [address], [address] [place] [address] Glucose Ql (U) 500 mg/dL Abnormal NEG [facility] Comment on above: Performed By: #### Gricel REECE CBCA #### [facility] ([id number]) [address] [place] [address] 20993 #### 86002-9 #### [facility] ([id number]) [address], [address] [place] [address] Ketones Ql (U) Negative Normal NEG [facility] Comment on above: Performed By: #### C MP, CBCA #### [facility] ([id number]) [address] [place] [address] 77341 #### 98953-8 #### [facility] ([id number]) [address], [address] [place] [address] Leukocyte esterase Test strip Ql (U) SMALL Abnormal NEG [facility] Comment on above: Performed By: #### C MP, CBCA #### [facility] ([id number]) [address] [place] [address] 32072 #### [id number] #### [facility] ([id number]) [address], [address] [place] [address] Nitrite Ql (U) Negative Normal NEG [facility] Comment on above: Performed By: #### C SHANELL, CBCA #### [facility] ([id number]) [address] [place] [address] 77481 #### 92704-1 #### [facility] ([id number]) [address], [address] [place] [address] pH (U) 6.0 [pH] Normal 5.0-8.5 [facility] Comment on above: Performed By: #### C MP, CBCA #### [facility] ([id number]) [address] [place] [address] 087[address] #### 44538-7 #### [facility] ([id number]) [address], [address] [place] [address] Protein Ql (U) 100 mg/dL Abnormal NEG [facility] Comment on above: Performed By: #### C MP, CBCA #### [facility] ([id number]) [address] [place] [address] 48598 #### 40094-6 #### [facility] ([id number]) [address], [address] [place] [address] R.B.CELLS 5 to 10 Normal 0-5 [facility] Comment on above: Performed By: #### Gricel REECE CBCA #### [facility] ([id number]) [address] [place] [address] 79473 #### 11084-2 #### [facility] ([id number]) [address], [address] [place] [address] Specific gravity (U) [Rel density] 1.015 Normal 1.003-1.035 [facility] Comment on above: Performed By: #### Gricel REECE CBCA #### [facility] ([id number]) [address] [place] [address] 14298 #### 62442-4 #### [facility] ([id number]) [address], [address] [place] [address] TURBIDITY CLEAR Normal CLEAR [facility] Comment on above: Performed By: #### Gricel REECE CBCA #### [facility] ([id number]) [address] [place] [address] 34713 #### 02740-3 #### [facility] ([id number]) [address], [address] [place] [address] Urobilinogen Qn (U) 0.2 {Laurie'U}/dL Normal <1.1 [facility] Comment on above: Performed By: #### Gricel REECE CBCA #### [facility] ([id number]) [address] [place] [address] 48140 #### 62096-1 #### [facility] ([id number]) [address], [address] [place] [address] W.B.CELLS 10 to 20 Normal 0-5 [facility] Comment on above: Performed By: #### Gricel REECE CBCA #### [facility] ([id number]) [address] [place] [address] 033[address] #### 75713-1 #### [facility] ([id number]) [address], [address] [place] [address] URINE CULTUREon 08-07-2024 Bacteria identified Cx Nom [...] F TRIMETH/SULFAMETHOXA ZOLE S <=1/19 F Susceptible [facility] Comment on above: Performed By: #### C SHANELL CBCA #### [facility] ([id number]) [address] [place] [address] 11396 #### [id number] #### [facility] ([id number]) [address], [address] [place] [address] CBC AND AUTO DIFFon 07-10-20 ABSOLUTE BASOPHIL 0.0 X10E9/L Normal 0.0-0.2 [facility] Comment on above: Performed By: #### C BCA, CMP #### [facility] ([id number]) [address] [place] [address] 88191 #### HA1C #### [facility] ([id number]) [address], [address] [place] [address] ABSOLUTE NEUTROPHIL 5.9 X10E9/L Normal 1.5-6.6 [facility] Comment on above: Performed By: #### C BCA, CMP #### [facility] ([id number]) [address] [place] [address] 67598 #### HA1C #### [facility] ([id number]) [address], [address] [place] [address] Basophils/100 WBC (Bld) 0.5 % Normal [facility] Comment on above: Performed By: #### C BCA, CMP #### [facility] ([id number]) [address] [place] [address] 54982 #### HA1C #### [facility] ([id number]) [address] [facility], [address] [place] [address] Eosinophils (Bld) [#/Vol] 0.2 10*3/uL Normal 0.0-0.4 [facility] Comment on above: Performed By: #### C BCA, CMP #### [facility] ([id number]) [address] [place] [address] 38417 #### HARoma #### [facility] ([id number]) [address], [address] [place] [address] Eosinophils/100 WBC (Bld) 2.0 % Normal [facility] Comment on above: Performed By: #### C BCA, CMP #### [facility] ([id number]) [address] [place] [address] 27171 #### HA1C #### [facility] ([id number]) [address], [address] [place] [address] Erythrocyte distribution width (RBC) [Ratio] 16.1 % High 11.5-15.0 [facility] Comment on above: Performed By: #### C BCA, CMP #### [facility] ([id number]) [address] [place] [address] 88816 #### HA1C #### [facility] ([id number]) [address], [address] [place] [address] Hematocrit (Bld) [Volume fraction] 40.4 % Normal 39-49 [facility] Comment on above: Performed By: #### C BCA, CMP #### [facility] ([id number]) [address] [place] [address] 40778 #### HA1C #### [facility] ([id number]) [address], [address] [place] [address] Hemoglobin (Bld) [Mass/Vol] 13.2 g/dL Normal 13.0-17.0 [facility] Comment on above: Performed By: #### C BCA, CMP #### [facility] ([id number]) [address] [place] [address] 01330 #### HA1C #### [facility] ([id number]) [address], [address] [place] [address] Lymphocytes (Bld) [#/Vol] 2.2 10*3/uL Normal 1.0-3.5 [facility] Comment on above: Performed By: #### C BCA, CMP #### [facility] ([id number]) [address] [place] [address] 31781 #### HA1C #### [facility] ([id number]) [address], [address] [place] [address] Lymphocytes/100 WBC (Bld) 24.1 % Normal [facility] Comment on above: Performed By: #### C BCA, CMP #### [facility] ([id number]) [address] [place] [address] 12592 #### HA1C #### [facility] ([id number]) [address], [address] [place] [address] MCH (RBC) [Entitic mass] 28.3 pg Normal 27-34 [facility] Comment on above: Performed By: #### C BCA, CMP #### [facility] ([id number]) [address] [place] [address] 21971 #### HA1C #### [facility] ([id number]) [address], [address] [place] [address] MCHC (RBC) [Mass/Vol] 32.8 g/dL Normal 32-36 [facility] Comment on above: Performed By: #### C BCA, CMP #### [facility] ([id number]) [address] [place] [address] 89708 #### HA1C #### [facility] ([id number]) [address], [address] [place] [address] MCV (RBC) [Entitic vol] 86 fL Normal 80-100 [facility] Comment on above: Performed By: #### C BCA, CMP #### [facility] ([id number]) [address] [place] [address] 76008 #### HA1C #### [facility] ([id number]) [address], [address] [place] [address] Monocytes (Bld) [#/Vol] 0.7 10*3/uL Normal 0-0.9 [facility] Comment on above: Performed By: #### C BCA, CMP #### [facility] ([id number]) [address] [place] [address] 37702 #### HA1C #### [facility] ([id number]) [address], [address] [place] [address] Monocytes/100 WBC (Bld) 8.2 % Normal [facility] Comment on above: Performed By: #### C BCA, CMP #### [facility] ([id number]) [address] [place] [address] 10087 #### HA1C #### [facility] ([id number]) [address], [address] [place] [address] Neutrophils/100 WBC (Bld) 65.2 % Normal [facility] Comment on above: Performed By: #### C BCA, CMP #### [facility] ([id number]) [address] [place] [address] 86454 #### HA1C #### [facility] ([id number]) [address], [address] [place] [address] Platelet mean volume (Bld) [Entitic vol] 7.6 fL Normal 7-12 [facility] Comment on above: Performed By: #### C BCA, CMP #### [facility] ([id number]) [address] [place] [address] 87251 #### HA1C #### [facility] ([id number]) [address], [address] [place] [address] Platelets (Bld) [#/Vol] 262 10*3/uL Normal 150-450 [facility] Comment on above: Performed By: #### C BCA, CMP #### [facility] ([id number]) [address] [place] [address] 69261 #### HA1C #### [facility] ([id number]) [address], [address] [place] [address] RBC COUNT 4.68 X10E12/L Normal 4.10-5.70 [facility] Comment on above: Performed By: #### C BCA, CMP #### [facility] ([id number]) [address] [place] [address] 58670 #### HA1C #### [facility] ([id number]) [address], [address] [place] [address] WBC (Bld) [#/Vol] 9.0 10*3/uL Normal 4.0-11.0 [facility] Comment on above: Performed By: #### C BCA, CMP #### [facility] ([id number]) [address] [place] [address] 89773 #### HA1C #### [facility] ([id number]) [address], [address] [place] [address] COMPREHENSIVE METABOLIC PANE Jeff 07-10-2024 Albumin [Mass/Vol] 3.7 g/dL Normal 3.2-5.3 [facility] Comment on above: Performed By: #### C BCA, CMP #### [facility] ([id number]) [address] [place] [address] 74425 #### HA1C #### [facility] ([id number]) [address], [address] [place] [address] ALP [Catalytic activity/Vol] 72 U/L Normal 39-130 [facility] Comment on above: Performed By: #### C BCA, CMP #### [facility] ([id number]) [address] [place] [address] 68156 #### HA1C #### [facility] ([id number]) [address], [address] [place] [address] ALT [Catalytic activity/Vol] 19 U/L Normal 0-40 [facility] Comment on above: Performed By: #### C BCA, CMP #### [facility] ([id number]) [address] [place] [address] 96859 #### HA1C #### [facility] ([id number]) [address], [address] [place] [address] Anion gap [Moles/Vol] 10 mmol/L Normal 5-15 [facility] Comment on above: Performed By: #### C BCA, CMP #### [facility] ([id number]) [address] [place] [address] 23720 #### HA1C #### [facility] ([id number]) [address] [place] [address] AST [Catalytic activity/Vol] 24 U/L Normal 0-41 [facility] Comment on above: Performed By: #### C BCA, CMP #### [facility] ([id number]) [address] [place] [address] 97258 #### HA1C #### [facility] ([id number]) [address], [address] [place] [address] Bilirubin [Mass/Vol] 0.4 mg/dL Normal 0.3-1.2 [facility] Comment on above: Performed By: #### C BCA, CMP #### [facility] ([id number]) [address] [place] [address] 04064 #### HA1C #### [facility] ([id number]) [address], [address] [place] [address] Calcium [Mass/Vol] 8.7 mg/dL Normal 8.5-10.5 [facility] Comment on above: Performed By: #### C BCA, CMP #### [facility] ([id number]) [address] [place] [address] 56735 #### HA1C #### [facility] ([id number]) [address], [address] [place] [address] Chloride [Moles/Vol] 101 mmol/L Normal 98-109 [facility] Comment on above: Performed By: #### C BCA, CMP #### [facility] ([id number]) [address] [place] [address] 95803 #### HA1C #### [facility] ([id number]) [address] [facility], [address] [place] [address] CO2 [Moles/Vol] 23 mmol/L Normal 22-32 [facility] Comment on above: Performed By: #### C BCA, CMP #### [facility] ([id number]) [address] [place] [address] 22414 #### HA1C #### [facility] ([id number]) [address] [facility], [address] [place] [address] Creatinine [Mass/Vol] 1.31 mg/dL High 0.70-1.20 [facility] Comment on above: Result Comment: METH OD TRACEABLE TO IDMS STANDARD Performed By: #### C BCA, CMP #### [facility] ([id number]) [address] [place] [address] 54956 #### HA1C #### [facility] ([id number]) [address] [facility], [address] [place] [address] GFR/1.73 sq M.predicted among non-blacks MDRD (S/P/Bld) [Vol rate/Area] 53 mL/min/{1.73_m2} Low >59 [facility] Comment on above: Result Comment: Reported eGFR is based on the CKD-EPI 2020 equation that does not use a race coefficient. Performed By: #### C BCA, CMP #### [facility] ([id number]) [address] [place] [address] 43614 #### HA1C #### [facility] ([id number]) [address] [facility], [address] [place] [address] Glucose [Mass/Vol] 141 mg/dL High 65-99 [facility] Comment on above: Performed By: #### C BCA, CMP #### [facility] ([id number]) [address] [place] [address] 21440 #### HA1C #### [facility] ([id number]) [address], [address] [place] [address] Potassium [Moles/Vol] 4.2 mmol/L Normal 3.5-5.0 [facility] Comment on above: Performed By: #### C BCA, CMP #### [facility] ([id number]) [address] [place] [address] 09891 #### HA1C #### [facility] ([id number]) [address], [address] [place] [address] Protein [Mass/Vol] 7.8 g/dL Normal 6.0-8.0 [facility] Comment on above: Performed By: #### C BCA, CMP #### [facility] ([id number]) [address] [place] [address] 17218 #### HA1C #### [facility] ([id number]) [address], [address] [place] [address] Sodium [Moles/Vol] 134 mmol/L Normal 134-146 [facility] Comment on above: Performed By: #### C BCA, CMP #### [facility] ([id number]) [address] [place] [address] 91616 #### HA1C #### [facility] ([id number]) [address] [place] [address] Urea nitrogen [Mass/Vol] 27 mg/dL Normal 5-27 [facility] Comment on above: Performed By: #### C BCA, CMP #### [facility] ([id number]) [address] [place] [address] 06567 #### HA1C #### [facility] ([id number]) [address] [place] [address] HGB A1C (GLYCO-HGB)on 2023 Glucose [Mass/Vol] 160 mg/dL Normal [facility] Comment on above: Performed By: #### C BCA, CMP #### [facility] ([id number]) [address] [place] [address] #### HA1C #### [facility] ([id number]) [address] [facility] [address] [place] [address] HbA1c (Bld) [Mass fraction] 7.2 % High 4.4-5.6 [facility] Comment on above: Result Comment: NOTE ADA Guidelines Result HgbA1c Normal : less than 5.7 % Prediabetes : 5.7 % to 6.4 % Diabetes : > 6.4 % Use with caution in patients with abnormal hemoglobin variants as the half-life of red blood cells and in vivo glycation rates are affected. Performed By: #### C BCA, CMP #### [facility] ([id number]) [address] [place] [address] #### HA1C #### [facility] ([id number]) [address] [facility], [address] [address] URINALYSISon 07-10-2024 Bilirubin Ql (U) Negative Normal NEG [facility] Comment on above: Performed By: #### C SHANELL, CBCA #### [facility] ([id number]) [address] [place] [address] #### [id number] #### [facility] ([id number]) [address] [facility], [address] [address] BLOOD/HGB SMALL Abnormal NEG [facility] Comment on above: Performed By: #### Gricel REECE, CBCA #### [facility] ([id number]) [address] [place] [address] #### [id number] #### [facility] ([id number]) [address] [place] [address] Color (U) YELLOW Normal YELLOW [facility] Comment on above: Performed By: #### C SHANELL, CBCA #### [facility] ([id number]) [address] [place] [address] #### [id number] #### [facility] ([id number]) [address], [address] [place] [address] Glucose Ql (U) >1000 Abnormal NEG [facility] Comment on above: Performed By: #### C SHANELL, CBCA #### [facility] ([id number]) [address] [place] [address] #### 87635-1 #### [facility] ([id number]) [address], [address] [place] [address] Ketones Ql (U) Negative Normal NEG [facility] Comment on above: Performed By: #### C SHANELL, CBCA #### [facility] ([id number]) [address] [place] [address] 50398 #### 69469-1 #### [facility] ([id number]) [address], [address] [place] [address] Leukocyte esterase Test strip Ql (U) MODERATE Abnormal NEG [facility] Comment on above: Result Comment: HIGH CONCENTRATIONS OF GLUCOSE MAY DECREASE THE REACTIVITY OF THE DIPSTICK LEUKOCYTE TEST PAD. Performed By: #### C SHANELL, CBCA #### [facility] ([id number]) [address] [place] [address] 32289 #### 70367-1 #### [facility] ([id number]) [address], [address] [place] [address] Nitrite Ql (U) Positive Abnormal NEG [facility] Comment on above: Performed By: #### Gricel REECE CBCA #### [facility] ([id number]) [address] [place] [address] 75286 #### 29201-1 #### [facility] ([id number]) [address], [address] [place] [address] pH (U) 6.0 [pH] Normal 5.0-8.5 [facility] Comment on above: Performed By: #### Gricel REECE CBCA #### [facility] ([id number]) [address] [place] [address] 96496 #### 74270-6 #### [facility] ([id number]) [address], [address] [place] [address] Protein Ql (U) Negative Normal NEG [facility] Comment on above: Performed By: #### Gricel REECE CBCA #### [facility] ([id number]) [address] [place] [address] 43814 #### 61260-4 #### [facility] ([id number]) [address], [address] [place] [address] R.B.CELLS 6 /hpf High 0-5 [facility] Comment on above: Performed By: #### Gricel REECE CBCA #### [facility] ([id number]) [address] [place] [address] 70093 #### 42807-2 #### [facility] ([id number]) [address], [address] [place] [address] Specific gravity (U) [Rel density] 1.020 Normal 1.003-1.035 [facility] Comment on above: Performed By: #### Gricel REECE CBCA #### [facility] ([id number]) [address] [place] [address] 95486 #### 40328-6 #### [facility] ([id number]) [address], [address] [place] [address] SQUAMOUS EPITHELIUM 2 /hpf Normal 0-5 [facility] Comment on above: Performed By: #### C SHANELL, CBCA #### [facility] ([id number]) [address] [place] [address] 53924 #### 60155-4 #### [facility] ([id number]) [address], [address] [place] [address] TURBIDITY CLEAR Normal CLEAR [facility] Comment on above: Performed By: #### C SHANELL, CBCA #### [facility] ([id number]) [address] [place] [address] 43480 #### 07165-8 #### [facility] ([id number]) [address], [address] [place] [address] Urobilinogen Qn (U) 0.2 {Laurie'U}/dL Normal <1.1 [facility] Comment on above: Performed By: #### C SHANELL, CBCA #### [facility] ([id number]) [address] [place] [address] 11535 #### 53681-9 #### [facility] ([id number]) [address], [address] [place] [address] W.B.CELLS 10 /hpf High 0-5 [facility] Comment on above: Performed By: #### C SHANELL, CBCA #### [facility] ([id number]) [address] [place] [address] 55714 #### 63662-7 #### [facility] ([id number]) [address], [address] [place] [address] WBC CLUMPS MANY Abnormal NONE [facility] Comment on above: Performed By: #### C SHANELL CBCA #### [facility] ([id number]) [address] [place] [address] 95907 #### 20997-7 #### [facility] ([id number]) [address], [address] [place] [address] URINE CULTUREon 07-10-2024 Bacteria identified Cx Nom (U) CULTURE RESULTS >100,000 ORGANISMS/mL CITROBACTER FREUNDII 50,000 to 100,000 ORGANISMS/mL KLEBSIELLA OXYTOCA MULTIPLE SPECIES PRESENT. PROBABLE COLLECTION CONTAMINATION. SUGGEST REPEAT SPECIMEN. MIXED GRAM POSITIVE AND GRAM NEGATIVE ORGANISMS Normal [facility] Comment on above: Performed By: #### C SHANELL CBCA #### [facility] ([id number]) [address] [place] [address] 13176 #### 38229-9 #### [facility] ([id number]) [address], [address] [place] [address] CBC AND AUTO DIFFon 01-11-20 24 ABSOLUTE BASOPHIL 0.0 X10E9/L Normal 0.0-0.2 [facility] Comment on above: Performed By: #### Gricel REECE CBCA #### [facility] ([id number]) [address] [place] [address] 73645 #### 03099-2 #### [facility] ([id number]) [address], [address] [place] [address] ABSOLUTE NEUTROPHIL 4.3 X10E9/L Normal 1.5-6.6 [facility] Comment on above: Performed By: #### C SHANELL CBCA #### [facility] ([id number]) [address] [place] [address] 16232 #### 22039-7 #### [facility] ([id number]) [address], [address] [place] [address] Basophils/100 WBC (Bld) 0.5 % Normal [facility] Comment on above: Performed By: #### C SHANELL, CBCA #### [facility] ([id number]) [address] [place] [address] 61368 #### 27173-9 #### [facility] ([id number]) [address], [address] [place] [address] Eosinophils (Bld) [#/Vol] 0.2 10*3/uL Normal 0.0-0.4 [facility] Comment on above: Performed By: #### C SHANELL, CBCA #### [facility] ([id number]) [address] [place] [address] 67750 #### 75409-9 #### [facility] ([id number]) [address], [address] [place] [address] Eosinophils/100 WBC (Bld) 3.4 % Normal [facility] Comment on above: Performed By: #### C SHANELL, CBCA #### [facility] ([id number]) [address] [place] [address] 91045 #### 43473-0 #### [facility] ([id number]) [address], [address] [place] [address] Erythrocyte distribution width (RBC) [Ratio] 15.4 % High 11.5-15.0 [facility] Comment on above: Performed By: #### C SHANELL, CBCA #### [facility] ([id number]) [address] [place] [address] 06282 #### 39979-3 #### [facility] ([id number]) [address], [address] [place] [address] Hematocrit (Bld) [Volume fraction] 38.9 % Low 39-49 [facility] Comment on above: Performed By: #### C MP, CBCA #### [facility] ([id number]) [address] [place] [address] 88419 #### 07964-7 #### [facility] ([id number]) [address], [address] [place] [address] Hemoglobin (Bld) [Mass/Vol] 13.0 g/dL Normal 13.0-17.0 [facility] Comment on above: Performed By: #### C MP, CBCA #### [facility] ([id number]) [address] [place] [address] 17896 #### 11294-5 #### [facility] ([id number]) [address] [facility] [place] [address] Lymphocytes (Bld) [#/Vol] 2.0 10*3/uL Normal 1.0-3.5 [facility] Comment on above: Performed By: #### C SHANELL, CBCA #### [facility] ([id number]) [address] [place] [address] 22883 #### 26837-1 #### [facility] ([id number]) [address] [facility] [place] [address] Lymphocytes/100 WBC (Bld) 27.7 % Normal [facility] Comment on above: Performed By: #### C MP, CBCA #### [facility] ([id number]) [address] [place] [address] 38731 #### 33571-9 #### [facility] ([id number]) [address], [address] [place] [address] MCH (RBC) [Entitic mass] 28.9 pg Normal 27-34 [facility] Comment on above: Performed By: #### C MP, CBCA #### [facility] ([id number]) [address] [place] [address] 98903 #### 48011-8 #### [facility] ([id number]) [address], [address] [place] [address] MCHC (RBC) [Mass/Vol] 33.3 g/dL Normal 32-36 [facility] Comment on above: Performed By: #### C SHANELL, CBCA #### [facility] ([id number]) [address] [place] [address] 24989 #### 50867-1 #### [facility] ([id number]) [address] [facility], [address] [place] [address] MCV (RBC) [Entitic vol] 87 fL Normal 80-100 [facility] Comment on above: Performed By: #### C SHANELL, CBCA #### [facility] ([id number]) [address] [place] [address] 71595 #### 61705-9 #### [facility] ([id number]) [address], [address] [place] [address] Monocytes (Bld) [#/Vol] 0.7 10*3/uL Normal 0-0.9 [facility] Comment on above: Performed By: #### C SHANELL, CBCA #### [facility] ([id number]) [address] [place] [address] 74016 #### 45879-3 #### [facility] ([id number]) [address], [address] [place] [address] Monocytes/100 WBC (Bld) 9.2 % Normal [facility] Comment on above: Performed By: #### C SHANELL, CBCA #### [facility] ([id number]) [address] [place] [address] 66939 #### 82414-8 #### [facility] ([id number]) [address], [address] [place] [address] Neutrophils/100 WBC (Bld) 59.2 % Normal [facility] Comment on above: Performed By: #### C MP, CBCA #### [facility] ([id number]) [address] [place] [address] 41277 #### 81365-7 #### [facility] ([id number]) [address], [address] [place] [address] Platelet mean volume (Bld) [Entitic vol] 7.3 fL Normal 7-12 [facility] Comment on above: Performed By: #### C SHANELL, CBCA #### [facility] ([id number]) [address] [place] [address] 51938 #### 33189-2 #### [facility] ([id number]) [address], [address] [place] [address] Platelets (Bld) [#/Vol] 264 10*3/uL Normal 150-450 [facility] Comment on above: Performed By: #### C SHANELL, CBCA #### [facility] ([id number]) [address] [place] [address] 18389 #### 56100-4 #### [facility] ([id number]) [address], [address] [place] [address] RBC COUNT 4.48 X10E12/L Normal 4.10-5.70 [facility] Comment on above: Performed By: #### C SHANELL, CBCA #### [facility] ([id number]) [address] [place] [address] 10979 #### 01769-8 #### [facility] ([id number]) [address], [address] [place] [address] WBC (Bld) [#/Vol] 7.3 10*3/uL Normal 4.0-11.0 [facility] Comment on above: Performed By: #### Gricel REECE CBCA #### [facility] ([id number]) [address] [place] [address] 78622 #### 51076-8 #### [facility] ([id number]) [address], [address] [place] [address] COMPREHENSIVE METABOLIC PANE Jeff 01-11-2024 Albumin [Mass/Vol] 3.5 g/dL Normal 3.2-5.3 [facility] Comment on above: Performed By: #### Gricel REECE CBCA #### [facility] ([id number]) [address] [place] [address] 65712 #### 38037-3 #### [facility] ([id number]) [address], [address] [place] [address] ALP [Catalytic activity/Vol] 72 U/L Normal 39-130 [facility] Comment on above: Performed By: #### Gricel REECE CBCA #### [facility] ([id number]) [address] [place] [address] 70957 #### 35263-8 #### [facility] ([id number]) [address], [address] [place] [address] ALT [Catalytic activity/Vol] 18 U/L Normal 0-40 [facility] Comment on above: Performed By: #### Gricel REECE CBCA #### [facility] ([id number]) [address] [place] [address] 90162 #### 37726-6 #### [facility] ([id number]) [address], [address] [place] [address] Anion gap [Moles/Vol] 8 mmol/L Normal 5-15 [facility] Comment on above: Performed By: #### C SHANELL, CBCA #### [facility] ([id number]) [address] [place] [address] 10096 #### 02896-6 #### [facility] ([id number]) [address] [place] [address] AST [Catalytic activity/Vol] 19 U/L Normal 0-41 [facility] Comment on above: Performed By: #### C MP, CBCA #### [facility] ([id number]) [address] [place] [address] 75151 #### 41927-8 #### [facility] ([id number]) [address] [place] [address] Bilirubin [Mass/Vol] 0.4 mg/dL Normal 0.3-1.2 [facility] Comment on above: Performed By: #### C SHANELL, CBCA #### [facility] ([id number]) [address] [place] [address] 50371 #### 44682-1 #### [facility] ([id number]) [address] [place] [address] Calcium [Mass/Vol] 8.9 mg/dL Normal 8.5-10.5 [facility] Comment on above: Performed By: #### C SHANELL, CBCA #### [facility] ([id number]) [address] [place] [address] 37770 #### 73010-4 #### [facility] ([id number]) [address], [address] [place] [address] Chloride [Moles/Vol] 100 mmol/L Normal 98-109 [facility] Comment on above: Performed By: #### C MP, CBCA #### [facility] ([id number]) [address] [place] [address] 83768 #### 14701-7 #### [facility] ([id number]) [address] [facility] [place] [address] CO2 [Moles/Vol] 27 mmol/L Normal 22-32 [facility] Comment on above: Performed By: #### C SHANELL CBCA #### [facility] ([id number]) [address] [place] [address] 93259 #### 27423-5 #### [facility] ([id number]) [address] [facility] [facility], [address] [place] [address] Creatinine [Mass/Vol] 1.29 mg/dL High 0.70-1.20 [facility] Comment on above: Result Comment: METH OD TRACEABLE TO IDMS STANDARD Performed By: #### C JOSEPH REECE #### [facility] ([id number]) [address] [place] [address] 06373 #### 22433-0 #### [facility] ([id number]) [address] [facility] [facility], [address] [place] [address] GFR/1.73 sq M.predicted among non-blacks MDRD (S/P/Bld) [Vol rate/Area] 54 mL/min/{1.73_m2} Low >59 [facility] Comment on above: Result Comment: Reported eGFR is based on the CKD-EPI 2020 equation that does not use a race coefficient. Performed By: #### C SHANELL CBCA #### [facility] ([id number]) [address] [place] [address] 64445 #### 62939-2 #### [facility] ([id number]) [address] [facility], [address] [place] [address] Glucose [Mass/Vol] 160 mg/dL High 65-99 [facility] Comment on above: Performed By: #### C SHANELL CBCA #### [facility] ([id number]) [address] [place] [address] 20420 #### 38704-7 #### [facility] ([id number]) [address] [place] [address] Potassium [Moles/Vol] 4.6 mmol/L Normal 3.5-5.0 [facility] Comment on above: Performed By: #### C SHANELL, CBCA #### [facility] ([id number]) [address] [place] [address] 31163 #### 32703-7 #### [facility] ([id number]) [address] [place] [address] Protein [Mass/Vol] 7.4 g/dL Normal 6.0-8.0 [facility] Comment on above: Performed By: #### C SHANELL, CBCA #### [facility] ([id number]) [address] [place] [address] 05424 #### 24610-7 #### [facility] ([id number]) [address] [place] [address] Sodium [Moles/Vol] 135 mmol/L Normal 134-146 [facility] Comment on above: Performed By: #### C SHANELL, CBCA #### [facility] ([id number]) [address] [place] [address] 04204 #### 55686-4 #### [facility] ([id number]) [address] [place] [address] Urea nitrogen [Mass/Vol] 27 mg/dL Normal 5-27 [facility] Comment on above: Performed By: #### C SHANELL, CBCA #### [facility] ([id number]) [address] [place] [address] 18052 #### 41477-0 #### [facility] ([id number]) [address] [place] [address] HGB A1C (GLYCO-HGB)on 2023 Glucose [Mass/Vol] 177 mg/dL Normal [facility] Comment on above: Performed By: #### C SHANELL CBCA #### [facility] ([id number]) [address] [place] [address] 84666 #### 52079-1 #### [facility] ([id number]) [address] [place] [address] HbA1c (Bld) [Mass fraction] 7.8 % High 4.4-5.6 [facility] Comment on above: Result Comment: NOTE ADA Guidelines Result HgbA1c Normal : less than 5.7 % Prediabetes : 5.7 % to 6.4 % Diabetes : > 6.4 % Use with caution in patients with abnormal hemoglobin variants as the half-life of red blood cells and in vivo glycation rates are affected. Performed By: #### Gricel REECE CBCA #### [facility] ([id number]) [address] [place] [address] 15759 #### 57031-2 #### [facility] ([id number]) [address] [place] [address] Lipid 1996 panelon Cholesterol [Mass/Vol] 140 mg/dL Low 150-200 [facility] Comment on above: Performed By: #### Gricel REECE CBCA #### [facility] ([id number]) [address] [place] [address] 60465 #### 59891-4 #### [facility] ([id number]) [address] [place] [address] Cholesterol in HDL [Mass/Vol] 46 mg/dL Normal >39 [facility] Comment on above: Result Comment: HDL <40 mg/dL - High Risk HDL > or = 40mg/dL- Desirable HDL >60 mg/dL - Negative Risk Performed By: #### JOSEPH Monsalve MP #### [facility] ([id number]) [address] [place] [address] 79655 #### 20224-3 #### [facility] ([id number]) [address], [address] [place] [address] Cholesterol in LDL [Mass/Vol] 53 mg/dL Normal <130 [facility] Comment on above: Result Comment: LDL <100 mg/dL - Desirable LDL >160 mg/dL - High Risk Performed By: #### JS Monsalve MPA #### [facility] ([id number]) [address] [place] [address] 43080 #### 07295-8 #### [facility] ([id number]) [address], [address] [place] [address] Cholesterol in VLDL [Mass/Vol] 41 mg/dL High 0-30 [facility] Comment on above: Performed By: #### Gricel REECE CBCA #### [facility] ([id number]) [address] [place] [address] 18924 #### 40066-2 #### [facility] ([id number]) [address], [address] [place] [address] CHOLESTEROL:HDL 3.0 Normal 1.0-5.0 [facility] Comment on above: Performed By: #### C MP, CBCA #### [facility] ([id number]) [address] [place] [address] 05005 #### 91568-5 #### [facility] ([id number]) [address] [facility] [place] [address] Triglyceride [Mass/Vol] 203 mg/dL High 27-150 [facility] Comment on above: Performed By: #### C SHANELL CBCA #### [facility] ([id number]) [address] [place] [address] 33874 #### 22778-3 #### [facility] ([id number]) [address] [facility] [place] [address] MICROALBUMIN - ALBUMIN:CREAT ININE URINE RATIOon 01-11-2024 ALB/CREAT RATIO 119.5 mg/g creat High 0.0-30.0 [facility] Comment on above: Performed By: #### M ALBU #### [facility] ([id number]) [address] [facility], [address] [place] [address] #### UA #### [facility] ([id number]) [address] [place] [address] 26191 Albumin DL <= 20 mg/L (U) [Mass/Vol] 9.5 mg/dL High 0.0-1.9 [facility] Comment on above: Performed By: #### M ALBU #### [facility] ([id number]) [address] [place] [address] #### UA #### [facility] ([id number]) [address] [place] [address] 65018 URINE CREAT 79.50 mg/dL Normal [facility] Comment on above: Performed By: #### M ALBU #### [facility] ([id number]) [address] [place] [address] #### UA #### [facility] ([id number]) [address] [place] [address] 01905 URINALYSISon 01-11-2024 Bilirubin Ql (U) Negative Normal NEG [facility] Comment on above: Performed By: #### M ALBU #### [facility] ([id number]) [address] [place] [address] #### UA #### [facility] ([id number]) [address] [place] [address] 47387 BLOOD/HGB MODERATE Abnormal NEG [facility] Comment on above: Performed By: #### M ALBU #### [facility] ([id number]) [address] [place] [address] #### UA #### [facility] ([id number]) [address] [place] [address] 96807 Color (U) YELLOW Normal YELLOW [facility] Comment on above: Performed By: #### M ALBU #### [facility] ([id number]) [address] [place] [address] #### UA #### [facility] ([id number]) [address] [place] [address] 36584 Glucose Ql (U) >1000 Abnormal NEG [facility] Comment on above: Performed By: #### M ALBU #### [facility] ([id number]) [address] [place] [address] #### UA #### [facility] ([id number]) [address] [place] [address] 61158 Ketones Ql (U) Negative Normal NEG [facility] Comment on above: Performed By: #### M ALBU #### [facility] ([id number]) [address] [facility], [address] [place] [address] #### UA #### [facility] ([id number]) [address] [place] [address] Leukocyte esterase Test strip Ql (U) MODERATE Abnormal NEG [facility] Comment on above: Result Comment: HIGH CONCENTRATIONS OF GLUCOSE MAY DECREASE THE REACTIVITY OF THE DIPSTICK LEUKOCYTE TEST PAD. Performed By: #### M ALBU #### [facility] ([id number]) [address] [facility], [address] [place] [address] #### UA #### [facility] ([id number]) [address] [place] [address] 22593 MUCOUS PRESENT Abnormal NONE [facility] Comment on above: Performed By: #### M ALBU #### [facility] ([id number]) [address] [facility], [address] [place] [address] #### UA #### [facility] ([id number]) [address] [place] [address] 39611 Nitrite Ql (U) Negative Normal NEG [facility] Comment on above: Performed By: #### M ALBU #### [facility] ([id number]) [address] [facility], [address] [place] [address] #### UA #### [facility] ([id number]) [address] [place] [address]156 pH (U) 7.0 [pH] Normal 5.0-8.5 [facility] Comment on above: Performed By: #### M ALBU #### [facility] ([id number]) [address] [facility], [address] [place] [address] #### UA #### [facility] ([id number]) [address] [place] [address]133 Protein Ql (U) Trace Abnormal NEG [facility] Comment on above: Performed By: #### M ALBU #### [facility] ([id number]) [address] [facility], [address] [place] [address] #### UA #### [facility] ([id number]) [address] [place] [address] 36360 R.B.CELLS 16 /hpf High 0-5 [facility] Comment on above: Performed By: #### M ALBU #### [facility] ([id number]) [address] [facility], [address] [place] [address] #### UA #### [facility] ([id number]) [address] [place] [address]30 Specific gravity (U) [Rel density] 1.015 Normal 1.003-1.035 [facility] Comment on above: Performed By: #### M ALBU #### [facility] ([id number]) [address] [place] [address], [address] [place] [address] #### UA #### [facility] ([id number]) [address] [place] [address] 05633 SQUAMOUS EPITHELIUM 2 /hpf Normal 0-5 [facility] Comment on above: Performed By: #### M ALBU #### [facility] ([id number]) [address] [place] [address] [address] [place] [address] #### UA #### [facility] ([id number]) [address] [place] [address] 44664 TURBIDITY CLOUDY Abnormal CLEAR [facility] Comment on above: Performed By: #### M ALBU #### [facility] ([id number]) [address] [facility], [address] [place] [address] #### UA #### [facility] ([id number]) [address] [place] [address] 69433 Urobilinogen Qn (U) 0.2 {Laurie'U}/dL Normal <1.1 [facility] Comment on above: Performed By: #### M ALBU #### [facility] ([id number]) [address] [place] [address], [address] [place] [address] #### UA #### [facility] ([id number]) [address] [place] [address] W.B.CELLS >100 High 0-5 [facility] Comment on above: Performed By: #### M ALBU #### [facility] ([id number]) [address] [place] [address], [address] [place] [address] #### UA #### [facility] ([id number]) [address] [place] [address] URINE CULTUREon 01-11-2024 Bacteria identified Cx Nom (U) CULTURE RESULTS 10,000 to 50,000 ORGANISMS/mL PROTEUS MIRABILIS 10,000 to 50,000 ORGANISMS/mL PROTEUS MIRABILIS VARIANT 10,000 to 50,000 ORGANISMS/mL PROTEUS MIRABILIS 2ND VARIANT TRICE STR[employer] WORKER REQUESTING WORKUP 01/14/2024 CORRECTED REPORT [ S [...] F TRIMETH/SULFAMETHOXA ZOLE S <=12/02 F Susceptible [facility] Comment on above: Performed By: #### 6 30-4 #### [facility] ([id number]) [address] [place] [address], [address] [place] [address] GLYCOHEMOGLOBIN A1Con 2022 ADA RECOMMENDATION SEE BELOW Normal [facility] Comment on above: Result Comment: ADA RECOMMENDED LIMIT 4.0 - 6.0 ADA THERAPEUTIC TARGET < 7.0 ACTION SUGGESTED > 7.0 Performed By: #### A 1C #### [facility] [address] [place] [address] Dr. Javi Flynn Glucose [Mass/Vol] 275 mg/dL Normal [facility] Comment on above: Performed By: #### A 1C #### [facility] [address] [place] [address] Dr. Jaiv Flynn HbA1c (Bld) [Mass fraction] 11.2 % Critically high 4.5-6.2 [facility] Comment on above: Performed By: #### A 1C #### [facility] [address] [place] [address] Dr. Javi Flynn PROF CHEM 8 (BAS METB)on Anion gap [Moles/Vol] 13.8 mmol/L Normal [facility] Comment on above: Performed By: #### B MP #### [facility] [address] [address] [address] Javi Flynn Calcium [Mass/Vol] 8.8 mg/dL Normal 8.5-10.1 [facility] Comment on above: Performed By: #### B MP #### [facility] [address] [address] [address] Javi Flynn Chloride [Moles/Vol] 102 mmol/L Normal 98-107 [facility] Comment on above: Performed By: #### B MP #### [facility] [address] [address] [address] Javi Flynn CO2 [Moles/Vol] 26.6 mmol/L Normal 21.0-32.0 [facility] Comment on above: Performed By: #### B MP #### [facility] [address] [address] [address] Javi Flynn Creatinine [Mass/Vol] 1.50 mg/dL Critically high 0.70-1.30 [facility] Comment on above: Performed By: #### B MP #### [facility] [address] [address] [address] Javi Flynn EGFR-AF BANGLADESHI 54 mL/min/1.73m2 Critically low >=60 [facility] Comment on above: Performed By: #### B MP #### [facility] [address] [address] [address] Javi Flynn EGFR-NON AF BANGLADESHI 45 mL/min/1.73m2 Critically low >=60 [facility] Comment on above: Performed By: #### B MP #### [facility] [address] [address] [address] Javi Flynn Glucose [Mass/Vol] 349 mg/dL Critically high 74-106 [facility] Comment on above: Performed By: #### B MP #### [facility] [address] [address] [address] Javi Flynn Potassium [Moles/Vol] 4.4 mmol/L Normal 3.5-5.1 [facility] Comment on above: Performed By: #### B MP #### [facility] [address] [address] [address] Javi Flynn Sodium [Moles/Vol] 138 mmol/L Normal 136-145 [facility] Comment on above: Performed By: #### B MP #### [facility] [address] [address] [address] Javi Flynn Urea nitrogen [Mass/Vol] 22.0 mg/dL Critically high 7.0-18.0 [facility] Comment on above: Performed By: #### B MP #### [facility] [address] [address] [address] Javi Flynn Urea nitrogen/Creatinine [Mass ratio] 14.7 mg/mg Normal [facility] Comment on above: Performed By: #### B MP #### [facility] [address] [place] [address] Dr. Javi Flynn PROTIMEon 03-02-2023 INR Coag (PPP) [Relative time] 2.94 {INR} Normal [facility] Comment on above: Performed By: #### P T #### [facility] [address] [place] [address] Dr. Javi Flynn INR GUIDELINES SEE BELOW Normal [facility] Comment on above: Result Comment: EDDIE RED INR: 2.0 - 3.0 CONDITIONS NOT LISTED BELOW 2.5 - 3.5 FOR PROSTHETIC HEART VALVE REPLACEMENT 2.5 - 3.5 RECURRENT THROMBOSIS Performed By: #### P T #### [facility] [address] [address] [address] Javi Flynn PT Coag (PPP) [Time] 29.3 s Critically high 9.0-11.6 [facility] Comment on above: Performed By: #### P T #### [facility] [address] [place] [address] Dr. Javi Flynn CBC AUTO DIFFon 09-20-2022 BASO # 0.1 103/ul Normal 0.0-0.1 [facility] Comment on above: Performed By: #### C BC #### [facility] [address] [place] [address] Dr. Javi Flynn Basophils/100 WBC (Bld) 0.8 % Normal 0.2-2.0 [facility] Comment on above: Performed By: #### C BC #### [facility] [address] [place] [address] Dr. Javi Flynn EO # 0.2 103/ul Normal 0.0-0.7 [facility] Comment on above: Performed By: #### C BC #### [facility] [address] [place] [address] Dr. Javi Flynn Eosinophils/100 WBC (Bld) 2.9 % Normal 0.9-7.0 [facility] Comment on above: Performed By: #### C BC #### [facility] [address] [place] [address] Dr. Javi Flynn Erythrocyte distribution width (RBC) [Ratio] 13.6 % Normal 11.0-15.0 [facility] Comment on above: Performed By: #### C BC #### [facility] [address] [place] [address] Dr. Javi Flynn Hematocrit (Bld) [Volume fraction] 40.0 % Critically low 42.0-54.0 [facility] Comment on above: Performed By: #### C BC #### [facility] [address] [place] [address] Dr. Javi Flynn Hemoglobin (Bld) [Mass/Vol] 13.1 g/dL Critically low 14.0-18.0 [facility] Comment on above: Performed By: #### C BC #### [facility] [address] [place] [address] Dr. Javi Flynn IG # 0.03 10e3/ul Normal 0.00-0.03 [facility] Comment on above: Performed By: #### C BC #### [facility] [address] [place] [address] Dr. Javi Flynn IG % 0.5 % Normal 0.0-0.5 [facility] Comment on above: Performed By: #### C BC #### [facility] [address] [place] [address] Dr. Javi Flynn LYMPH # 2.1 103/ul Normal 1.2-3.8 [facility] Comment on above: Performed By: #### C BC #### [facility] [address] [place] [address] Dr. Javi Flynn Lymphocytes/100 WBC (Bld) 32.0 % Normal 20.5-60.0 [facility] Comment on above: Performed By: #### C BC #### [facility] [address] [place] [address] Dr. Javi Flynn MANUAL DIFF REQ NO Normal [facility] Comment on above: Performed By: #### C BC #### [facility] [address] [place] [address] Dr. Javi Flynn MCH (RBC) [Entitic mass] 28.1 pg Normal 25.9-34.0 [facility] Comment on above: Performed By: #### C BC #### [facility] [address] [place] [address] Dr. Javi Flynn MCHC (RBC) [Mass/Vol] 32.8 g/dL Normal 29.9-35.2 [facility] Comment on above: Performed By: #### C BC #### [facility] [address] [place] [address] Dr. Javi Flynn MCV (RBC) [Entitic vol] 85.8 fL Normal 80.0-94.0 [facility] Comment on above: Performed By: #### C BC #### [facility] [address] [place] [address] Dr. Javi Flynn MONO # 0.6 103/ul Normal 0.3-0.8 [facility] Comment on above: Performed By: #### C BC #### [facility] [address] [place] [address] Dr. Javi Flynn Monocytes/100 WBC (Bld) 8.7 % Normal 1.7-12.0 [facility] Comment on above: Performed By: #### C BC #### [facility] [address] [address] [address] Javi Flynn NEUT # 3.7 103/ul Normal 1.4-6.5 [facility] Comment on above: Performed By: #### C BC #### [facility] [address] [address] [address] Javi Flynn Neutrophils/100 WBC (Bld) 55.1 % Normal 43.0-75.0 [facility] Comment on above: Performed By: #### C BC #### [facility] [address] [address] [address] Javi Flynn Platelet mean volume (Bld) [Entitic vol] 9.4 fL Critically low 9.5-13.5 [facility] Comment on above: Performed By: #### C BC #### [facility] [address] [address] [address] Javi Flynn PLT 268 103/ul Normal 150-450 [facility] Comment on above: Performed By: #### C BC #### [facility] [address] [address] [address] Javi Flynn RBC 4.66 106/ul Critically low 4.70-6.10 [facility] Comment on above: Performed By: #### C BC #### [facility] [address] [address] [address] Javi Flynn WBC 6.7 103/ul Normal 4.0-11.0 [facility] Comment on above: Performed By: #### C BC #### [facility] [address] [address] [address] Javi Flynn GLYCOHEMOGLOBIN A1Con 2021 ADA RECOMMENDATION SEE BELOW Normal [facility] Comment on above: Result Comment: ADA RECOMMENDED LIMIT 4.0 - 6.0 ADA THERAPEUTIC TARGET < 7.0 ACTION SUGGESTED > 7.0 Performed By: #### A 1C #### [facility] [address] [address] [address] Javi Flynn Glucose [Mass/Vol] 312 mg/dL Normal [facility] Comment on above: Performed By: #### A 1C #### [facility] [address] [place] [address] Dr. Javi Flynn HbA1c (Bld) [Mass fraction] 12.5 % Critically high 4.5-6.2 [facility] Comment on above: Performed By: #### A 1C #### [facility] [address] [place] [address] Dr. Javi Flynn PROF CHEM 8 (BAS METB)on Anion gap [Moles/Vol] 10.9 mmol/L Normal [facility] Comment on above: Performed By: #### B MP #### [facility] [address] [place] [address] Dr. Javi Flynn Calcium [Mass/Vol] 8.7 mg/dL Normal 8.5-10.[address] [facility] Comment on above: Performed By: #### B MP #### [facility] [address] [place] [address] Dr. Javi Flynn Chloride [Moles/Vol] 98 mmol/L Normal 98-107 [facility] Comment on above: Performed By: #### B MP #### [facility] [address] [place] [address] Dr. Javi Flynn CO2 [Moles/Vol] 25.3 mmol/L Normal 21.0-32.0 [facility] Comment on above: Performed By: #### B MP #### [facility] [address] [place] [address] Dr. Javi Flynn Creatinine [Mass/Vol] 1.18 mg/dL Normal 0.70-1.30 [facility] Comment on above: Performed By: #### B MP #### [facility] [address] [place] [address] Dr. Javi Flynn EGFR-AF BANGLADESHI >60 Normal >=60 [facility] Comment on above: Performed By: #### B MP #### [facility] [address] [place] [address] Dr. Javi Flynn EGFR-NON AF BANGLADESHI 59 mL/min/1.73m2 Critically low >=60 [facility] Comment on above: Performed By: #### B MP #### [facility] [address] [address] [address] Javi Flynn Glucose [Mass/Vol] 256 mg/dL Critically high 74-106 [facility] Comment on above: Performed By: #### B MP #### [facility] [address] [address] [address] Javi Flynn Potassium [Moles/Vol] 4.2 mmol/L Normal 3.5-5.1 [facility] Comment on above: Performed By: #### B MP #### [facility] [address] [address] [address] Javi Flynn Sodium [Moles/Vol] 130 mmol/L Critically low 136-145 [facility] Comment on above: Performed By: #### B MP #### [facility] [address] [address] [address] Javi Flynn Urea nitrogen [Mass/Vol] 17.0 mg/dL Normal 7.0-18.0 [facility] Comment on above: Performed By: #### B MP #### [facility] [address] [address] [address] Javi Flynn Urea nitrogen/Creatinine [Mass ratio] 14.4 mg/mg Normal [facility] Comment on above: Performed By: #### B MP #### [facility] [address] [address] [address] Javi Flynn PROTIMEon 09-03-2022 INR Coag (PPP) [Relative time] 5.23 {INR} Critically high [facility] Comment on above: Performed By: #### P T #### [facility] [address] [address] [address] Javi Flynn INR GUIDELINES SEE BELOW Normal [facility] Comment on above: Result Comment: EDDIE RED INR: 2.0 - 3.0 CONDITIONS NOT LISTED BELOW 2.5 - 3.5 FOR PROSTHETIC HEART VALVE REPLACEMENT 2.5 - 3.5 RECURRENT THROMBOSIS Performed By: #### P T #### [facility] [address] [address] [address] Javi Flynn PT Coag (PPP) [Time] 50.7 s Critically high 9.0-11.6 [facility] Comment on above: Performed By: #### P T #### [facility] [address] [place] [address] Dr. Javi Flynn CULTURE URINEon 06-15-2022 CULTURE [...] >=4 R F Normal [facility] Comment on above: Performed By: #### U RCX #### [facility] [address] [place] [address] Dr. Javi Flynn UA RANDOM W/MICROSCOPICon BACTERIA MODERATE Abnormal NONE SEEN [facility] Comment on above: Performed By: #### U AMIC #### [facility] [address] [place] [address] Dr. Javi Flynn Bilirubin Ql (U) Negative Normal NEGATIVE [facility] Comment on above: Performed By: #### U AMIC #### [facility] [address] [address] [address] Javi Flynn CAST NONE SEEN Normal NONE SEEN [facility] Comment on above: Performed By: #### U AMIC #### [facility] [address] [address] [address] Javi Flynn Clarity (U) CLEAR Normal CLEAR [facility] Comment on above: Performed By: #### U AMIC #### [facility] [address] [address] [address] Javi Flynn Color (U) BROWN Abnormal YELLOW [facility] Comment on above: Performed By: #### U AMIC #### [facility] [address] [place] [address] Dr. Javi Flynn Crystals LM Nom (Urine sed) NONE SEEN Normal NONE SEEN [facility] Comment on above: Performed By: #### U AMIC #### [facility] [address] [address] [address] Javi Flynn Epithelial cells LM Ql (Urine sed) RARE Normal NONE SEEN /RARE [facility] Comment on above: Performed By: #### U AMIC #### [facility] [address] [place] [address] Dr. Javi Flynn Glucose Ql (U) >1000 Abnormal NEGATIVE [facility] Comment on above: Performed By: #### U AMIC #### [facility] [address] [address] [address] Javi Flynn Hemoglobin Ql (U) MODERATE Abnormal NEGATIVE [facility] Comment on above: Performed By: #### U AMIC #### [facility] [address] [address] [address] Javi Flynn Ketones Ql (U) Negative Normal NEGATIVE [facility] Comment on above: Performed By: #### U AMIC #### [facility] [address] [place] [address] Dr. Javi Flynn LEUKOCYTES LARGE Abnormal NEGATIVE [facility] Comment on above: Performed By: #### U AMIC #### [facility] [address] [address] [address] Javi Flynn MUCOUS NONE SEEN Normal NONE SEEN [facility] Comment on above: Performed By: #### U AMIC #### [facility] [address] [address] [address] Javi Flynn Nitrite Ql (U) Negative Normal NEGATIVE [facility] Comment on above: Performed By: #### U AMIC #### [facility] [address] [address] [address] Javi Flynn pH (U) 5.5 [pH] Normal 5-9 [facility] Comment on above: Performed By: #### U AMIC #### [facility] [address] [place] [address] Dr. Javi Flynn RBC 10-20 Abnormal 0-2 [facility] Comment on above: Performed By: #### U AMIC #### [facility] [address] [place] [address] Dr. Javi Flynn SPEC GRAVITY 1.010 Normal 1.005-<=1.025 [facility] Comment on above: Performed By: #### U AMIC #### [facility] [address] [place] [address] Dr. Javi Flynn UA PROTEIN Negative Normal NEGATIVE/ TRACE [facility] Comment on above: Performed By: #### U AMIC #### [facility] [address] [place] [address] Dr. Javi Flynn Urobilinogen Qn (U) 0.2 {Laurie'U}/dL Normal 0.2 - 1. 0 [facility] Comment on above: Performed By: #### U AMIC #### [facility] [address] [place] [address] Dr. Javi Flynn WBC (U) [#/Vol] /uL Abnormal NONE SEEN The [facility] Comment on above: Performed By: #### U AMIC #### [facility] [address] [place] [address] Dr. Javi Flynn Hemoglobin A1Con 08-17-2020 HbA1c (Bld) [Mass fraction] 206 mg/dL Normal [facility] Comment on above: Result Comment: The ADA and AACC recommend providing the estimated average glucose result to permit better patient understanding of their HBA1c result. Performed By: #### B MP #### [address] [place] [address] Vet Tech: Chago Esposito MD #### GLYHGB #### [address] [address] [place], [place] [id number] Vet Tech: Rigo Luna MD HbA1c (Bld) [Mass fraction] 8.8 % High 4.0-6.0 [facility] Comment on above: Performed By: #### B MP #### [address] [place] [id number] ( Vet Tech: Chago Esposito MD #### GLYHGB #### [address] [place], [place] [id number] Vet Tech: Rigo Luna MD Basic Metabolic Profon 08-15 (cont.) Normal [facility] Comment on above: Result Comment: Aver age GFR for 70 or more years old: 75 mL/min/1.73sq m Chronic Kidney Disease: <60 mL/min/1.73sq m Kidney failure: <15 mL/min/1.73sq m eGFR calculated using average adult body mass. Additional eGFR calculator available at: http://www.[employer]/multiple_crcl_2012.htm Performed By: #### B MP #### [address] [place] [address] ( Vet Tech: Chago Esposito MD #### GLYHGB #### [address] [address] [place], [place] [id number] Vet Tech: Rigo Luna MD Anion gap [Moles/Vol] 13 mmol/L Normal 9-17 [facility] Comment on above: Performed By: #### B MP #### [address] [place] [address] Vet Tech: Chago Esposito MD #### GLYHGB #### [facility] [address] [place] [address] Vet Tech: Rigo Luna MD BUN/CRE Ratio 18 Normal 9-20 [facility] Comment on above: Performed By: #### B MP #### [facility] [address] [place], [place] [phone] Vet Tech: Chago Esposito MD #### GLYHGB #### [address] [address] Vet Tech: Rigo Luna MD Calcium [Mass/Vol] 8.9 mg/dL Normal 8.6-10.4 [facility] Comment on above: Performed By: #### B MP #### [facility] [address] [place], [place] [id number] Vet Tech: Chago Esposito MD #### GLYHGB #### [address] [address] Vet Tech: Rigo Luna MD Chloride [Moles/Vol] 96 mmol/L Low 98-107 [facility] Comment on above: Performed By: #### B MP #### [facility] [address] [place] [address] Vet Tech: Chago Esposito MD #### GLYHGB #### [facility] [address] [place] [address] Vet Tech: Rigo Luna MD CO2 [Moles/Vol] 23 mmol/L Normal 20-31 [facility] Comment on above: Performed By: #### B MP #### [facility] [address] [place] [address] Vet Tech: Chago Esposito MD #### GLYHGB #### [facility] [address] [place] [address] Vet Tech: Rigo Lnua MD Creatinine [Mass/Vol] 1.04 mg/dL Normal 0.70-1.20 [facility] Comment on above: Performed By: #### B MP #### [facility] [address] [place], [place] [id number] Vet Tech: Chago Esposito MD #### GLYHGB #### [address] [address] Vet Tech: Rigo Luna MD GFR, Amer >60 Normal >60 [facility] Comment on above: Performed By: #### B MP #### [facility] [address] [place], [place] [phone] Vet Tech: Chago Esposito MD #### GLYHGB #### [address] [phone] Vet Tech: Rigo Luna MD GFR,non Amer >60 Normal >60 [facility] Comment on above: Performed By: #### B MP #### [facility] [address] [place], [place] [phone] Vet Tech: Chago Esposito MD #### GLYHGB #### [address] [address] Vet Tech: Rigo Luna MD Glucose [Mass/Vol] 249 mg/dL High 70-99 [facility] Comment on above: Performed By: #### B MP #### [facility] [address] [place] [address] Vet Tech: Chago Esposito MD #### GLYHGB #### [address] [address] Vet Tech: Rigo Luna MD Potassium [Moles/Vol] 4.1 mmol/L Normal 3.7-5.3 [facility] Comment on above: Performed By: #### B MP #### [facility] [address] [place], [place] [phone] Vet Tech: Chago Esposito MD #### GLYHGB #### [address] [place] [address] Vet Tech: Rigo Luna MD Sodium [Moles/Vol] 132 mmol/L Low 135-144 [facility] Comment on above: Performed By: #### B MP #### [facility] [address] [place], [place] [phone] Vet Tech: Chago Esposito MD #### GLYHGB #### [address] [address] Vet Tech: Rigo Luna MD Staging: Normal [facility] Comment on above: Result Comment: Stag e 1: Some kidney damage normal GFR Stage 2: Mild kidney damage GFR 60-89 Stage 3: Moderate kidney damage GFR 30-59 Stage 4: Severe kidney damage GFR 15-29 Stage 5: Severe kidney damage GFR <15 ESRD - chronic treatment by dialysis or transplant Performed By: #### B MP #### [address] [place], [place] [phone] Vet Tech: Chago Esposito MD #### GLYHGB #### [address] [address] Vet Tech: Rigo Luna MD Urea nitrogen [Mass/Vol] 19 mg/dL Normal 8-23 [facility] Comment on above: Performed By: #### B MP #### [address] [place] [phone] Vet Tech: Chago Esposito MD #### GLYHGB #### [address] [place] [address] Vet Tech: Rigo Luna MD Cult,Urineon 10-24-2019 Cult,Urine Specimen Description .VOIDED URINE Special Requests NOT REPORTED Culture Several types of bacteria were identified in this specimen. Further ID and susceptibility testing is generally not helpful in this circumstance and has not been performed. Consider recollection if clinically indicated. Please contact the Micro lab ([phone]) if you feel the management ofthis particular situation would be helped by further testing. Report Status FINAL 10/24/2019 Normal [facility] Comment on above: Performed By: #### U RC #### [address] [address] Vet Tech: Rigo Luna MD [facility] [address] [place] [address] Vet Tech: Chago Esposito MD Urinalysis, Routineon 2018 Acetoacetic Acid,Ur Negative Normal NEG [facility] Comment on above: Performed By: #### U A, UMICAO #### [address] [address] Vet Tech: Rigo Luna MD Bilirubin, SemiQt,Ur Negative Normal NEG [facility] Comment on above: Performed By: #### U A, UMICAO #### [facility] [employer] [address] [place] [address] Vet Tech: Rigo Luna MD Color (U) YELLOW Normal [facility] Comment on above: Performed By: #### U A, UMICAO #### [facility] [employer] [address] [place] [address] Vet Tech: Rigo Luna MD Glucose Ql (U) Negative Normal NEG [facility] Comment on above: Performed By: #### U A, UMICAO #### [facility] [employer] [address] [place] [address] Vet Tech: Rigo Luna MD Hemoglobin, Ur Negative Normal NEG [facility] Comment on above: Performed By: #### U A, UMICAO #### [facility] [employer] [facility] [place] [address] Vet Tech: Rigo Luna MD Leukocyte esterase Test strip Ql (U) MODERATE Abnormal NEG [facility] Comment on above: Performed By: #### U A, UMICAO #### [address] [address] Vet Tech: Rigo Luna MD Nitrite,Ur Negative Normal NEG [facility] Comment on above: Performed By: #### U A, UMICAO #### [address] [address] Vet Tech: Rigo Luna MD pH (U) 5.5 [pH] Normal 5.0-8.0 [facility] Comment on above: Performed By: #### U A, UMICAO #### [address] [address] Vet Tech: Rigo Luna MD Protein Ql (U) Negative Normal NEG [facility] Comment on above: Performed By: #### U A, UMICAO #### [address] [address] Vet Tech: Rigo Luna MD Specific gravity (U) [Rel density] 1.013 Normal 1.005-1.030 [facility] Comment on above: Performed By: #### U A, UMICAO #### [address] [address] Vet Tech: Rigo Luna MD Turbidity CLEAR Normal CLEAR [facility] Comment on above: Performed By: #### U A, UMICAO #### [address] [address] Vet Tech: Rigo Luna MD Urobilinogen,Ur Normal Normal NORM [facility] Comment on above: Performed By: #### U A, UMICAO #### [address] [address] Vet Tech: Rigo Luna MD Urinalysis,Microon 9 ----- Normal [facility] Comment on above: Performed By: #### U A, UMICAO #### [facility] [address] [place] [address] Vet Tech: Rigo Luna MD Epithelial cells LM.HPF (Urine sed) [#/Area] 2 TO 5 Normal 0-5 [facility] Comment on above: Performed By: #### U A, UMICAO #### [facility] [address] [place] [address] Vet Tech: Rigo Luna MD RBC (U) [#/Vol] 0 TO 2 Normal 0-4 [facility] Comment on above: Result Comment: Refe rence range defined for non-centrifuged specimen. Performed By: #### U A, UMICAO #### [address] [address] Vet Tech: Rigo Luna MD WBC (U) [#/Vol] 10 TO 20 Normal 0-5 [facility] Comment on above: Performed By: #### U A, UMICAO #### [address] [address] Vet Tech: Rigo Luna MD Urinalysis, Routineon 2018 Comment NOT REPORTED Normal [facility] Comment on above: Performed By: #### U A, UMICAO #### [address] [address] Vet Tech: Rigo Luna MD Urinalysis,Microon 9 Amorphous sediment LM Ql (Urine sed) NOT REPORTED Normal [facility] Comment on above: Performed By: #### U A, UMICAO #### [facility] [address] [place] [phone] Vet Tech: Rigo Luna MD Bacteria LM.HPF (Urine sed) [#/Area] NOT REPORTED Normal [facility] Comment on above: Performed By: #### U A, UMICAO #### [facility] [address] [place] [address] Vet Tech: Rigo Luna MD Casts LM.LPF (Urine sed) [#/Area] NOT REPORTED Normal 0-8 [facility] Comment on above: Performed By: #### U A, UMICAO #### [facility] [address] [place] [address] Vet Tech: Rigo Luna MD Crystals LM Nom (Urine sed) NOT REPORTED Normal NONE [facility] Comment on above: Performed By: #### U A, UMICAO #### [facility] [address] [place] [address] Vet Tech: Rigo Luna MD Epithelial, Renal NOT REPORTED Normal 0 [facility] Comment on above: Performed By: #### U A, UMICAO #### [facility] [address] [place] [address] Vet Tech: Rigo Luna MD Mucus Strands NOT REPORTED Normal [facility] Comment on above: Performed By: #### U A, UMICAO #### [facility] [address] [place] [address] Vet Tech: Rigo Luna MD Other Observations NOT REPORTED Normal NREQ [facility] Comment on above: Performed By: #### U A, UMICAO #### [facility] [address] [place] [address] Vet Tech: Rigo Luna MD Trichomonas NOT REPORTED Normal NONE [facility] Comment on above: Performed By: #### U A, UMICAO #### [facility] [address] [place] [address] Vet Tech: Rigo Luna MD Yeast LM Ql (Urine sed) NOT REPORTED Normal [facility] Comment on above: Performed By: #### U A, UMICAO #### [facility] [address] [place] [address] Vet Tech: Rigo Luna MD Vital Signs Date Time Vital Sign Value Performing Clinician Leathajosephine ramiro 12-22-2023 11:05-0500 Body temperature 97.11 [degF] Trice Aichholz RFID TECHNICIAN Work Phone: [facility] 12-22-2023 11:05-0500 Diastolic blood pressure 78 mm[Hg] Trice Aichholz RFID TECHNICIAN Work Phone: [facility] 12-22-2023 11:05-0500 Heart rate 76 /min Trice Aichholz RFID TECHNICIAN Work Phone: [facility] 12-22-2023 11:05-0500 Respiratory rate 18 /min Trice Aichholz RFID TECHNICIAN Work Phone: [facility] 12-22-2023 11:05-0500 SaO2% (BldA) [Mass fraction] 97 % Trice Aichholz RFID TECHNICIAN Work Phone: [facility] 12-22-2023 11:05-0500 Systolic blood pressure 108 mm[Hg] Trice Aichholz RFID TECHNICIAN Work Phone: [facility] Healthcare Encounters Encounter Date Encounter Type Care Provider Facility Start: 09-20-2024 End: 09-20-2024 Refill Trice Aichholz RFID TECHNICIAN Work Phone: [facility] Comment on above: Type 2 diabetes maryse itus with other specified complication, without long-term current use of insulin (CMS/HCC) (Primary Dx) Start: 09-18-2024 End: 09-18-2024 Refill Trice Aichholz RFID TECHNICIAN Work Phone: [facility] Comment on above: Primary hypertension (CMS/HCC) Start: 09-17-2024 End: 09-17-2024 Refill Trice Aichholz RFID TECHNICIAN Work Phone: [facility] Comment on above: Primary hypertension (CMS/HCC); Type 2 diabetes mellitus with other specified complication, without long-term current use of insulin (CMS/HCC); Bilateral lower extremity edema; Chronic painful diabetic neuropathy (CMS/HCC); Lumbar spondylosis; Mixed hyperlipidemia (CMS/HCC) Start: 08-16-2024 End: 08-16-2024 Refill Trice Loganz RFID TECHNICIAN Work Phone: [facility] Comment on above: Type 2 diabetes maryse itus with other specified complication, without long-term current use of insulin ([facility]) Start: 08-07-2024 End: 08-07-2024 ambulatory TRICE J AICHHOLZ [facility] Start: 07-10-2024 End: 07-10-2024 ambulatory TRICE J AICHHOLZ [facility] Start: 06-28-2024 End: 06-28-2024 ambulatory TRICE AICHHOLZ Not Available Start: 01-11-2024 End: 01-11-2024 [facility] Start: 12-22-2023 Bamboo flowsheet Trice Loganz RFID TECHNICIAN Work Phone: [facility] Start: 12-22-2023 Bamboo flowsheet Trice Aichholz RFID TECHNICIAN Work Phone: [facility] Start: 12-22-2023 End: 12-22-2023 Patient encounter procedure Trice Loganz RFID TECHNICIAN Work Phone: [facility] Comment on above: Encounter for subseq uent annual wellness visit (AWV) in Medicare patient (Primary Dx); BMI 30.0-30.9,adult; Primary hypertension (CMS/HCC); Neurogenic bladder; Bilateral lower extremity edema; Mixed hyperlipidemia (CMS/HCC); Type 2 diabetes mellitus with other specified complication, without long-term current use of insulin ([facility]) Start: 12-22-2023 End: 12-22-2023 ambulatory TRICE AICHHOLZ Not Available Start: 03-14-2023 End: 04-13-2023 ambulatory GREEN END WORKER TRICE AICHHOLZ Facility:[facility] Start: 03-02-2023 End: 03-02-2023 ambulatory GREEN END WORKER TRICE AICHHOLZ Facility:[facility] Start: 02-14-2023 End: 03-11-2023 ambulatory GREEN END WORKER TRICE AICHHOLZ Facility:[facility] Start: 01-12-2023 End: 02-11-2023 ambulatory GREEN END WORKER TRICE SARAYHJAYJAYZ Facility:[facility] Start: 12-15-2022 End: 01-12-2023 ambulatory GREEN END WORKER TRICE SARAYHJAYJAYZ Facility:[facility] Start: 12-02-2022 End: 12-02-2022 ambulatory GREEN END WORKER TRICE SARAYHHOLZ Facility:[facility] Start: 11-15-2022 End: 12-15-2022 ambulatory GREEN END WORKER TRICE SARAYHJAYJAYZ Facility:[facility] Start: 10-14-2022 End: 11-14-2022 ambulatory GREEN END WORKER TRICE SARAYDIANEZ Facility:[facility] Start: 09-30-2022 ambulatory GREEN END WORKER TRICE ALTHEAJAYJAYZ Facil ity:[facility]1 Start: 09-20-2022 End: 09-21-2022 ambulatory GREEN END WORKER TRICE SARAYHJAYJAYZ Facility:[facility] Start: 09-14-2022 End: 10-13-2022 ambulatory GREEN END WORKER TRICE SARAYDIANEZ Facility:[facility] Start: 09-03-2022 End: 09-03-2022 ambulatory GREEN END WORKER TRICE SARAYDIANEZ Facility:[facility] Start: 08-15-2022 End: 09-13-2022 ambulatory GREEN END WORKER TRICE SARAYDIANEZ Facility:[facility] Start: 07-15-2022 End: 08-14-2022 ambulatory ROGERS H MARCUS Facility:[facility] Start: 06-14-2022 End: 07-14-2022 ambulatory ROGERS H TOÑITOD Facility:[facility] Start: 06-10-2022 End: 06-10-2022 ambulatory GREEN END WORKER TRICE LOGANZ Facility:[facility] Start: 05-14-2022 End: 06-11-2022 ambulatory ROGERS H MARCUS Facility:[facility] Start: 08-15-2020 End: 08-16-2020 Patient encounter procedure [facility] Start: 10-22-2019 End: 10-23-2019 Patient encounter procedure [facility] Procedures Date Procedure Procedure Detail Performing Clinician Start: 08-15-2020 Basic metabolic pane l [facility] Start: 08-15-2020 Hemoglobin glycosylated a1c [facility] Start: 10-22-2019 Culture bacterial qu anttative colony [...] 05-13-2024 Influenza vaccination Influenza Vacc ine (#1) [facility] Comment on above: Postponed from 07/15 (Patient Refused) Start: 12-22-2023 End: 12-22-2023 Patient encounter procedure 12/22/2023 11:00 AM EST Office Visit [facility] [address] [place] [id number] Trice Strong NP [address] [place] [id number] Arrived [facility] Comment on above: Arrived Start: 07-15-2023 Influenza vaccination Influenza Vacc ine (#1) [facility] Start: 08-12-2021 Hemoglobin A1c measurement Diabetes: Hemoglobin A1C [facility] Start: 12-09-2017 Pneumococcal Vaccine : 65+ Years (2 - PPSV23 or PCV20) Pneumococcal Vaccine: 65+ Years (2 - PPSV23 or PCV20) [facility] Start: 1957 Urine screening for protein Diabetes: Urine Protein Screening [facility] Start: 1948 Glaucoma screening Diabetes: R etinopathy Screening [facility] Start: 1938 Medicare Annual Well ness (AWV) Medicare Annual Wellness (AWV) [facility] Immunizations Immunization Date Immunization Notes Care Provider Fa cili 09-28-2019 Seasonal trivalent influenza vaccine, adjuvanted, preservative free Trice Aichholz RFID TECHNICIAN Work Phone: [facility] 09-28-2019 influenza virus vacc ine, unspecified formulation Trice Aichholz RFID TECHNICIAN Work Phone: [facility] 10-14-2017 pneumococcal conjuga te vaccine, 13 valent Trice Aichholz RFID TECHNICIAN Work Phone: [facility] 08-04-2017 influenza, high dose seasonal, preservative-free Trice Aichholz RFID TECHNICIAN Work Phone: [facility] 09-01-2016 influenza, high dose seasonal, preservative-free Trice Aichholz RFID TECHNICIAN Work Phone: [facility] 09-01-2016 zoster vaccine, live Trice chholz RFID TECHNICIAN Work Phone: [facility] Payers Date Payer Category Payer Medicare [employer] ADVANTAGE [facility] MEDICARE ADVANTAGE [id number] 2017-Present [address] [place] [address] [id number] 2017 Medicare (Managed Care) [facility] [id number] 1959 Medicare [id number] 1938 Unknown [id number] 2.16.840.1.544393.3.579. 2.173 1938 Unknown [id number] 2.16.840.1.961207.3.579. 2.173 1938 Unknown [id number] 2.16.840.1.935913.3.579. 2.593 1938 Unknown [id number] 2.16.840.1.375863.3.579. 2.593 1938 Unknown [id number] 2.16.840.1.871828.3.579. 2.593 1938 Unknown [id number] 2.16.840.1.001340.3.579. 2.593 1938 Unknown [id number] 2.16.840.1.545032.3.579. 2.593 1938 Unknown [id number] 2.16.840.1.612191.3.579. 2.593 1938 Unknown [id number] 2.16.840.1.676271.3.579. 2.593 1938 Unknown [id number] 2.16.840.1.149185.3.579. 2.593 1938 Unknown [id number] 2.16.840.1.088908.3.579. 2.593 1938 Unknown [id number] 2.16.840.1.832913.3.579. 2.593 1938 Unknown [id number] 2.16.840.1.523280.3.579. 2.593 1938 Unknown [id number] 2.16.840.1.549139.3.579. 2.593 1938 Unknown [id number] 2.16.840.1.673119.3.579. 2.593 1938 Unknown [id number] 2.16.840.1.111927.3.579. 2.593 1938 Unknown [id number] 2.16.840.1.493973.3.579. 2.593 1938 Unknown [id number] 2.16.840.1.599681.3.579. 2.593 1938 Unknown [id number] 2.16.840.1.280770.3.579. 2.593 1938 Unknown [id number] 2.16.840.1.203758.3.579. 2.1259 1938 Unknown [id number] 2.16.840.1.637630.3.579. 2.1259 1938 Unknown [id number] 2.16.840.1.348385.3.579. 2.1286 1938 Unknown [id number] 2.16.840.1.222132.3.579. 2.1286 1938 Unknown [id number] 2.16.840.1.333637.3.579. 2.1286 Social History Date Type Detail Facility Start: 11-22-2023 Tobacco smoking status MTIS Never sm oked tobacco [facility] Start: [...] Presen t illness Narrative Associated Problem(s): Diabetes ([facility]) Check blood sugars daily, notify if <70 [...] Every 12 hours Continuous Blood Gluc Sensor (Abundance GenerationStyle Abi 14 Day Sensor) misc 1 each, [...] HISTORY Past Medical History: Diagnosis Date A-fib ([facility]) 11/24/2023 Anemia 12/22/2023 anamia Arthritis 12/22/2023 Depression ([facility]) 12/22/2023 Diabetes ([facility]) 10/17/2023 DVT (deep venous thrombosis) ([facility] Hyperlipidemia ([facility]) 11/24/2023 Hypertension ([facility]) 11/24/2023 Obesity 12/22/2023 Pruritus 11/24/2023 Past Surgical [...] Problem List Items Addressed This Visit Diabetes ([facility]) Check blood sugars daily, notify if <70 [...] (CMS/HCC) Mixed hyperlipidemia documented in this encounter [facility] Evaluation note Note Date & Type [...] Medicare patient- Primary BMI 30.0-30.9,adult Primary hypertension ([facility]) Unspecified essential hypertension Neurogenic bladder Neurogenic bladder, NOS Bilateral lower extremity edema Mixed hyperlipidemia ([facility]) Mixed hyperlipidemia Type 2 diabetes mellitus with other specified complication, without long-term current use of insulin ([facility]) Type 2 diabetes mellitus with other specified complication, without long-term current use of insulin ([facility])- Primary Atrial fibrillation, unspecified type ([facility]) Primary hypertension ([facility]) Unspecified essential hypertension Bilateral lower extremity edema Chronic painful diabetic neuropathy ([facility]) Lumbar spondylosis Lumbosacral spondylosis without myelopathy Lesion of skin of nose Type 2 diabetes mellitus with other specified complication, without long-term current use of insulin ([facility])- Primary documented in this encounter [facility] Healthcare Summary Purpose Family History No [...] CREATED AUTHOR AUTHOR'S ORGANIZ ATION 04/22/2023 [facility] DATE CREATED AUTHOR AUTHOR'S ORGANIZ ATION 06/30/2024 [facility] DATE CREATED AUTHOR AUTHOR'S ORGANIZ ATION 08/11/2024 [facility] Care Teams (unrecognized sec tion and content) Finished Garment Inspector Relationship Specialty Start Date End Date Sourav Dodson MD [address] [place] [phone] PCP - General Family Medicine 11/21/23 Trice Strong NP [address] [place] [address] Nurse Practitioner Family Medicine 11/21/23 Finished Garment Inspector Relationship Specialty Start Date End Date Sourav Dodson MD [address] [place] [phone] PCP - General Family Medicine 11/21/23 Trice Strong NP [address] [place] [address] Nurse Practitioner Family Medicine 11/21/23 Finished Garment Inspector Relationship Specialty Start Date End Date Sourav Dodson MD [address] [place] [address] PCP - General Family Medicine 06/28/24 Trice Strong NP [address] [place] [address] Nurse Practitioner Family Medicine 11/21/23 Trice Strong NP [address] [place] [address] Nurse Practitioner Family Medicine 06/28/24 Zaira Lance LPN Licensed Practical Nurse Family Medicine 07/27/24 Finished Garment Inspector Relationship Specialty Start Date End Date Sourav Dodson MD [address] [place] [phone] PCP - General Family Medicine 06/28/24 Trice Strong NP [address] [place] [address] Nurse Practitioner Family Medicine 11/21/23 Trice Strong NP [address] [place] [address] Nurse Practitioner Family Medicine 06/28/24 Zaira Lance LPN Licensed Practical Nurse Family Medicine 07/27/24 Finished Garment Inspector Relationship Specialty Start Date End Date Sourav Dodson MD [address] [place] [phone] PCP - General Family Medicine 06/28/24 Trice Strong NP [address] [place] [phone] PCP - Adán SNOW 08/14/24 Trice Strong NP [address] [place] [address] Nurse Practitioner Family Medicine 11/21/23 Trice Strogn NP [address] [place] [address] Nurse Practitioner Family Medicine 06/28/24 Zaira Lance LPN Licensed Practical Nurse Family Medicine 07/27/24 Finished Garment Inspector Relationship Specialty Start Date End Date Sourav Dodson MD [address] [place] [phone] PCP - General Family Medicine 06/28/24 Trice Strong NP [address] [place] [phone] PCP - Adán SNOW 08/14/24 Trice Strong NP [address] [place] [address] Nurse Practitioner Family Medicine 11/21/23 Trice Strong NP [address] [place] [address] Nurse Practitioner Family Medicine 06/28/24 Zaira Lance [...] BE BASED ON THE PRIMARY CLINICAL RECORDS. [facility] [employer] provides no warranty or guarantee of the accuracy or completeness of information in this document.
[2024-09-24 10:32] LABS: Glucometer 280 mg/dL (74-106)
[2024-09-24] MEDS: GABAPENTIN 300 MG CAPSULE PO ×2 (10:40→22:34)
[2024-09-24] MEDS: ENSURE HP 237 ML LIQUID PO ×2 (10:40→22:34)
[2024-09-24] MEDS: CETIRIZINE HCL 10 MG TABLET 20 MG PO (10:40)
[2024-09-24] MEDS: ACETAMINOPHEN 500 MG TABLET 1000 MG PO (10:40)
[2024-09-24] MEDS: FAMOTIDINE 20 MG TABLET 40 MG PO (10:40)
[2024-09-24] MEDS: PIOGLITAZONE 15 MG TABLET 30 MG PO (10:40)
[2024-09-24] MEDS: LISINOPRIL 20 MG TABLET 40 MG PO (10:40)
[2024-09-24] MEDS: INSULIN ASPART 300 UNIT/3 ML PEN SUBQ ×2 (10:41→16:21)
[2024-09-24] MEDS: AMLODIPINE BESYLATE 5 MG TABLET 10 MG PO (10:41)
[2024-09-24] MEDS: REMDESIVIR 200 MG in 0.9 % SODIUM CHLORIDE 250 ML 250 MG IV (11:24)
--- NOTE | 2024-09-24 13:12 | SWNOTE1 ---
Respiratory going in room, SW to stop back in later today.
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
--- NOTE | 2024-09-24 14:31 | SWNOTE1 ---
Important Message from Medicare reviewed and discussed with patient. Pt. verbalized understanding and signed the form. Original given to patient and copy placed in patient?s chart.
--- NOTE | 2024-09-24 14:48 | SWNOTE1 ---
After working with Physical thearpy, in room as well, pt has decided he wants to go to SNF. SW spoke with and pt in room. Before SW could even provide pt with list from medicare.gov, they voiced they wanted the [facility]. Referral sent to [facility]. Referral included face sheet, ED note, H&P, provider notes, case management report, nursing notes, diagnostic imaging, med list, and PT/OT notes.
[2024-09-24 16:08] LABS: Glucometer 227 mg/dL (74-106)
[2024-09-24] MEDS: GLIMEPIRIDE 2 MG TABLET PO (16:21)
[2024-09-24] MEDS: METFORMIN HCL 500 MG TABLET 1000 MG PO (16:21)
--- NOTE | 2024-09-24 16:22 | SWNOTE1 ---
SW spoke to Angel[facility] at [facility] and they accepted and will start precert.
[2024-09-24] MEDS: ATORVASTATIN CALCIUM 20 MG TABLET PO (22:34)
[2024-09-24] MEDS: BENZONATATE 100 MG CAPSULE 200 MG PO (22:38)
[2024-09-24 22:39] LABS: Glucometer 118 mg/dL (74-106)
[2024-09-25] VITALS (22 sets, daily range): BP systolic 100–124; BP diastolic 57–78; PULSE 71–93; TEMP 36.3–36.4; O2SAT 92–94
[2024-09-25] MEDS: HYDROXYZINE HCL 25 MG TABLET PO ×2 (00:56→20:23)
[2024-09-25] MEDS: ACETAMINOPHEN 500 MG TABLET 1000 MG PO ×4 (00:56→22:27)
[2024-09-25] MEDS: CEFTRIAXONE 1,000 MG in 0.9 % SODIUM CHLORIDE 50 ML 100 MG IV (01:01)
[2024-09-25] MEDS: AZITHROMYCIN 500 MG in 0.9 % SODIUM CHLORIDE 250 ML 200 MG IV (05:31)
--- NOTE | 2024-09-25 05:45 | P.PN_ITS ---
Progress Note: Subjective Subjective Interval history: Patient states he does feel little bit better still having significant cough throughout the evaluation. Exam Constitutional Vital Signs, click to edit/add: Last Vital Signs Temp 97.5 F L 09/25/24 01:10 Pulse 82 09/25/24 03:57 Resp 17 09/25/24 01:10 BP 120/78 09/25/24 01:10 Pulse Ox 93 L 09/25/24 04:17 O2 Del Method Room Air 09/25/24 04:17 O2 Flow Rate 2 09/24/24 06:39 Documenting provider has reviewed patient's vital signs: yes Common normals: apparent distress (Persistent cough and mild conversational dyspnea) Chest Common normals: inspection of chest normal Respiratory Common normals: abnormal respiratory effort (Persisting cough and mild conversational dyspnea -unchanged) Auscultation: rhonchi (More pronounced today but that may be secondary to improving air exchange); no rales Cardio Common normals: regular rhythm Rate: tachycardic GI Common normals: Normal to inspection, nondistended, normoactive bowel sounds present and soft to palpation Extremity Common normals: normal to inspection Progress Note: Objective Labs Labs: Short CBC 09/24/24 Range/Units 05:34 WBC 9.2 (4.0-11.0) 10^3/uL Hgb 13.0 L (14.0-18.0) g/dL Hct 40.5 L (42.0-54.0) % Plt Count 235 (150-450) 10^3/uL BMP 09/24/24 05:34 Sodium 139 Potassium 4.4 Chloride 103 Carbon Dioxide 23.1 BUN 30.0 H Creatinine 1.72 H Glucose 322 H Calcium 9.1 Liver Function 09/24/24 Range/Units 05:34 Total Bilirubin 0.3 (0.2-1.0) mg/dL AST 20 (15-37) U/L ALT 19 (16-63) U/L Alkaline Phosphatase 86 (46-116) U/L Albumin 2.7 L (3.4-5.0) g/dL Progress Note: A&P Assessment and Plan (1) Generalized weakness: (2) Urinary tract infection: (3) COVID-19: Plan Admission findings: Sinus tachycardia, respiratory distress, hypotension, acute hypoxia with O2 sat of 86%, acute kidney injury with baseline creatinine of 1.55, creatinine admission 1.97 which is 127% above baseline, white blood cell count normal but white blood cell count consistent with acute bacterial process with left shift, positive urinalysis and positive COVID-19 Acute COVID-19 with hypoxia-maintain patient on current treatment plan. He was able to wean off of supplemental oxygen we will see if he is able to maintain off of that with ambulation. Patient does have significant weakness that may be required for rehabilitation. Will review physical therapy notes Acute UTI due to device (chronic indwelling catheter-culture pending-check on tomorrow Iron deficiency anemia-monitor daily NIDDM-insulin sliding scale Elevated INR-therapeutic Hypertension-continue with home medications Diabetic peripheral neuropathy-continue with home medications Admission findings: Patient is unvaccinated for COVID-19, presented with increasing cough and shortness of breath and acute hypoxia, with the acute hypoxia in unvaccinated starting patient on remdesivir. This will be a 5-day cycle, medically necessary treatment will span 2 midnights. Inpatient status. ?
[2024-09-25 05:59] LABS: Basophils Percent Auto 0.3 % (0.2-2.0); Eosinophils Absolute Auto 0.1 10^3/uL (0.0-0.7); Eosinophils Percent Auto 0.7 % (0.9-7.0); Hematocrit 36.9 % (42.0-54.0); Hemoglobin 11.9 g/dL (14.0-18.0); Immature Granulocytes Abs Auto 0.03 10^3/uL (0.00-0.03); Immature Granulocytes Pct Auto 0.4 % (0.0-0.5); Lymphocytes Absolute Auto 2.1 10^3/uL (1.2-3.8); Lymphocytes Percent Auto 31.5 % (20.5-60.0); Mean Corpuscular HGB Conc 32.2 g/dL (29.9-35.2); Mean Corpuscular Hemoglobin 28.6 pg (25.9-34.0); Mean Corpuscular Volume 88.7 fL (80.0-94.0); Mean Platelet Volume 9.1 fL (9.5-13.5); Monocytes Absolute Auto 0.8 10^3/uL (0.3-0.8); Monocytes Percent Auto 11.3 % (1.7-12.0); Neutrophils Absolute Auto 3.7 10^3/uL (1.4-6.5); Neutrophils Percent Auto 55.8 % (43.0-75.0); Platelet Count 227 10^3/uL (150-450); Red Blood Count 4.16 10^6/uL (4.70-6.10); Red Cell Distribution Width 15.2 % (11.0-15.0); White Blood Count 6.7 10^3/uL (4.0-11.0)
[2024-09-25 06:11] LABS: Anion Gap 17.5; BUN Creatinine Ratio 25.3; Carbon Dioxide 23.5 mmol/L (21.0-32.0); Chloride 111 mmol/L (98-107); Estimated GFR (African America 56 (>=60 mL/min/1.73m^2); Estimated GFR (Non-African Ame 46 (>=60 mL/min/1.73m^2); Glucose 129 mg/dL (74-106); Sodium 148 mmol/L (136-145)
[2024-09-25 06:14] LABS: INR 2.64; Prothrombin Time 25.4 sec (9.0-11.6)
--- NOTE | 2024-09-25 07:43 | CM.NOTE ---
Rounds made with Dr. Dong, no discharge today for pt. Will continue antiviral medications and PT for strengthening.
[2024-09-25] MEDS: AMLODIPINE BESYLATE 5 MG TABLET 10 MG PO (08:25)
[2024-09-25] MEDS: PIOGLITAZONE 15 MG TABLET 30 MG PO (08:25)
[2024-09-25] MEDS: GLIMEPIRIDE 2 MG TABLET 1 MG PO (08:25)
[2024-09-25] MEDS: CETIRIZINE HCL 10 MG TABLET 20 MG PO (08:25)
[2024-09-25] MEDS: LISINOPRIL 20 MG TABLET 40 MG PO (08:25)
[2024-09-25] MEDS: GABAPENTIN 300 MG CAPSULE PO ×2 (08:26→20:18)
[2024-09-25] MEDS: METFORMIN HCL 500 MG TABLET 1000 MG PO ×2 (08:26→16:35)
[2024-09-25] MEDS: FAMOTIDINE 20 MG TABLET 40 MG PO (08:26)
[2024-09-25] MEDS: ENSURE HP 237 ML LIQUID PO ×2 (08:26→20:17)
[2024-09-25] MEDS: DEXAMETHASONE SOD PHOS 10 MG/ML VIAL 6 MG IV (08:34)
--- NOTE | 2024-09-25 09:46 | REH.PTDLY ---
Physical Therapy Daily Note PT Daily Note/Assess Start: 09/25/24 09:39 Freq: Status: Active Protocol: Document 09/25/24 09:39 TELMA (Rec: 09/25/24 09:46 [email or web address] No Response) Physical Therapy Daily Note/Assessment Time In 08:46 Time Out 08:58 Subjective Pt up in chair already, agreeable to exs. Pt states ' you know I do not walk right, haven't been able to since I went in for back surgery a few years ago. They hit 2 nerves. ' Therapeutic Exercise Minutes (minutes) 8 Therapeutic Exercise Units 1 Therapeutic Exercise Treatment Instructed in B LE seated LA, HR/TR, hip add, and hip abd step outs 10-12x ea for improved strength and mobility of LEs for ease of transfers. No complaints of increased pain with this. Therapeutic Activity Minutes (minutes) 4 Therapeutic Activity Units 0 Therapeutic Activity Comments Pt requires Mod A with sit to stand transfer from chair with cues for hand placement and posture. Pt struggles to get out of chair due to it's low height. Pt stood upright with support of RW for 2 mins, prior to needing to sit due to R knee wanting to buckle. Min A to assist pt to lower into chair. Total Therapy Minutes 12 Total Physical Therapy Units 1 Daily Note Summary Pt requires heavier assist with sit to stand transfer today. Pt would benefit from rehab stay to become stronger with transfers prior to returning home where he usually transfers Ind in and out of w/c.
--- NOTE | 2024-09-25 09:57 | SWNOTE1 ---
GABY received message and pt is approved to go to [facility]. GABY messaged doctor to see if pt medically stable. Pt may need to stay another night for medical treatment. GABY checking to see if [facility] can give IV remdesivir. [facility] checked with clinical team and they can but it is expensive and they will have to check with pharmacy to see if it is in stock. GABY messaged Dr. Dong.
[2024-09-25 11:34] LABS: Glucometer 258 mg/dL (74-106)
[2024-09-25] MEDS: INSULIN ASPART 300 UNIT/3 ML PEN SUBQ ×3 (12:13→22:27)
[2024-09-25 16:20] LABS: Glucometer 245 mg/dL (74-106)
[2024-09-25] MEDS: WARFARIN SODIUM 5 MG TABLET PO (16:35)
[2024-09-25] MEDS: WARFARIN SODIUM 2.5 MG TABLET PO (16:35)
[2024-09-25] MEDS: REMDESIVIR 100 MG in 0.9 % SODIUM CHLORIDE 100 ML 200 MG IV (16:36)
[2024-09-25] MEDS: GLIMEPIRIDE 2 MG TABLET PO (16:36)
[2024-09-25] MEDS: ENOXAPARIN SODIUM 40 MG/0.4 ML SYRINGE SUBQ (20:17)
[2024-09-25] MEDS: ATORVASTATIN CALCIUM 20 MG TABLET PO (20:18)
[2024-09-25 21:03] LABS: Glucometer 213 mg/dL (74-106)
[2024-09-26] VITALS (8 sets, daily range): BP systolic 107–155; BP diastolic 63–72; PULSE 69–93; TEMP 36.5–36.6; O2SAT 90–94
[2024-09-26] MEDS: CEFTRIAXONE 1,000 MG in 0.9 % SODIUM CHLORIDE 50 ML 100 MG IV (00:10)
[2024-09-26] MEDS: 0.9 % SODIUM CHLORIDE 250 ML 10 ML IV (00:10)
[2024-09-26] MEDS: AZITHROMYCIN 500 MG in 0.9 % SODIUM CHLORIDE 250 ML 200 MG IV (04:45)
[2024-09-26 06:17] LABS: Basophils Percent Auto 0.3 % (0.2-2.0); Eosinophils Percent Auto 0.3 % (0.9-7.0); Hematocrit 33.7 % (42.0-54.0); Hemoglobin 10.8 g/dL (14.0-18.0); Immature Granulocytes Abs Auto 0.02 10^3/uL (0.00-0.03); Immature Granulocytes Pct Auto 0.3 % (0.0-0.5); Lymphocytes Absolute Auto 1.6 10^3/uL (1.2-3.8); Lymphocytes Percent Auto 24.3 % (20.5-60.0); Mean Corpuscular Hemoglobin 28.3 pg (25.9-34.0); Mean Corpuscular Volume 88.2 fL (80.0-94.0); Monocytes Absolute Auto 0.7 10^3/uL (0.3-0.8); Monocytes Percent Auto 9.9 % (1.7-12.0); Neutrophils Absolute Auto 4.3 10^3/uL (1.4-6.5); Neutrophils Percent Auto 64.9 % (43.0-75.0); Platelet Count 237 10^3/uL (150-450); Red Blood Count 3.82 10^6/uL (4.70-6.10); Red Cell Distribution Width 14.9 % (11.0-15.0); White Blood Count 6.7 10^3/uL (4.0-11.0)
[2024-09-26 06:27] LABS: Anion Gap 18.2; BUN Creatinine Ratio 29.5; Calcium 8.1 mg/dL (8.5-10.1); Carbon Dioxide 21.9 mmol/L (21.0-32.0); Chloride 107 mmol/L (98-107); Estimated GFR (African America >60 (>=60 mL/min/1.73m^2); Estimated GFR (Non-African Ame 53 (>=60 mL/min/1.73m^2); Glucose 140 mg/dL (74-106); Potassium 4.1 mmol/L (3.5-5.1); Sodium 143 mmol/L (136-145)
[2024-09-26 06:31] LABS: Prothrombin Time 24.2 sec (9.0-11.6)
--- NOTE | 2024-09-26 08:00 | CM.NOTE ---
2nd Important Message From Medicare discussed with pt, pt denies questions or concerns.
[2024-09-26] MEDS: ENSURE HP 237 ML LIQUID PO (08:40)
[2024-09-26] MEDS: CETIRIZINE HCL 10 MG TABLET 20 MG PO (08:44)
[2024-09-26] MEDS: AMLODIPINE BESYLATE 5 MG TABLET 10 MG PO (08:44)
[2024-09-26] MEDS: GABAPENTIN 300 MG CAPSULE PO (08:44)
[2024-09-26] MEDS: DEXAMETHASONE SOD PHOS 4 MG/ML VIAL 6 MG IV (08:44)
--- NOTE | 2024-09-26 08:44 | CM.NOTE ---
Rounds made with Dr. Dong, pt will discharge to [facility] today for skilled therapy.
[2024-09-26] MEDS: LISINOPRIL 20 MG TABLET 40 MG PO (08:45)
[2024-09-26] MEDS: FAMOTIDINE 20 MG TABLET 40 MG PO (08:45)
[2024-09-26] MEDS: METFORMIN HCL 500 MG TABLET 1000 MG PO (08:45)
[2024-09-26] MEDS: PIOGLITAZONE 15 MG TABLET 30 MG PO (08:45)
[2024-09-26] MEDS: GLIMEPIRIDE 2 MG TABLET 1 MG PO (08:48)
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
--- NOTE | 2024-09-26 10:26 | REH.PTDLY ---
Physical Therapy Daily Note PT Daily Note/Assess Start: 09/25/24 09:39 Freq: Status: Active Protocol: Document 09/26/24 10:24 TELMA (Rec: 09/26/24 10:25 TELMA [id number]) Visit Not Completed Visit Not Completed Due to: Pt refusing Other Reason Visit Not Completed Pt in w/c in room upon arrival . Pt states he is going to the [facility] today and declines rx when asked to participate in therapy. Pt is getting antsy to leave. Physical Therapy Daily Note/Assessment Time In 10:15 Time Out 10:18
--- NOTE | 2024-09-26 10:36 | SWNOTE1 ---
Pt is medically stable for discharge. He is going to the [facility] skilled. [facility] does not have transport and pt did not want to ask his neighbor to take him. GABY called and set up trips. They will be here around 11:00. GABY notified pt, pt's , nurse, and [facility]. GABY faxed over [employer] and took packet to the floor. GABY completed HENS online.
== END 2024-09-26 11:22 | DRG 177 ==
LOC: ER 09-24 00:29 → MS 09-24 09:58
PROVIDERS: Registered Nurse; Admitting Provider Family Medicine; Emergency Provider Emergency Medicine; Visit Provider Family Medicine
DX: U07.1 COVID-19 (principal); J12.82 Pneumonia due to coronavirus disease 2019; N17.9 Acute kidney failure, unspecified; T83.511A Infection and inflammatory reaction due to indwelling urethral catheter, initial encounter; N39.0 Urinary tract infection, site not specified; Z28.310 Unvaccinated for COVID-19; R00.0 Tachycardia, unspecified; R06.03 Acute respiratory distress; I95.9 Hypotension, unspecified; R09.02 Hypoxemia; D50.9 Iron deficiency anemia, unspecified; R79.1 Abnormal coagulation profile; I10 Essential (primary) hypertension; E11.42 Type 2 diabetes mellitus with diabetic polyneuropathy; Z79.84 Long term (current) use of oral hypoglycemic drugs; B96.89 Other specified bacterial agents as the cause of diseases classified elsewhere
CPT/HCPCS: 36415; 71045; 80048; 80053; 80076; 81001; 82948; 83605; 83735; 83880; 84484; 85025; 85610; 87040; 87070; 87086; 87150; 87186; 87205; 87804; 87811; 93005; 94667; 94668; 94761; 96365; 96367; 96372; 96375; 97110; 97162; 97165; 97530; 97535; 99285; J0248; J0456; J0696; J1100; J1650

== ENCOUNTER 2024-10-15 04:17 | Outpatient (RCR) | payer MEDICARE, SELFPAY | END 2024-11-13 09:30 | disposition home or self-care (01) | LOC: MM 04:17 | PROVIDERS: Visit Provider Internal Medicine | DX: Z51.81 Encounter for therapeutic drug level monitoring (principal); Z79.01 Long term (current) use of anticoagulants; I48.91 Unspecified atrial fibrillation ==

== ENCOUNTER 2024-11-15 00:52 | Outpatient (RCR) | payer MEDICARE, SELFPAY | END 2024-12-14 15:18 | disposition home or self-care (01) | LOC: MM 00:52 | PROVIDERS: Visit Provider Internal Medicine | DX: Z51.81 Encounter for therapeutic drug level monitoring (principal); Z79.01 Long term (current) use of anticoagulants; I48.91 Unspecified atrial fibrillation ==

== ENCOUNTER 2024-11-22 14:50 | Emergency (ER) | payer MEDICARE, SELFPAY ==
[2024-11-22 14:53] VITALS: BP 162/80; PULSE 86; TEMP 36.6; O2SAT 95; BMI 29.8
--- NOTE | 2024-11-22 15:14 | PC.NURSE ---
pt came in with a chronic carrera that was draining around urethral site. removed old catheter and placed new one -- 16Fr. Drained immediately 800ml. clr yellow. pt states he feels relief in his belly.
[2024-11-22 16:25] LABS: Bilirubin Urine NEGATIVE (NEGATIVE); Blood Urine NEGATIVE (NEGATIVE); Clarity Urine CLEAR (CLEAR); Color Urine YELLOW (YELLOW); Glucose Urine UA 100 mg/dL (NEGATIVE); Ketones Urine NEGATIVE (NEGATIVE); Leukocyte Esterase Urine NEGATIVE (NEGATIVE); Nitrite Urine NEGATIVE (NEGATIVE); Protein Urine NEGATIVE (NEG/TRACE); Specific Gravity Urine 1.015 (1.005-1.025); Urobilinogen Urine 0.2 EU/dL (0.2-1.0); pH Urine 5.5 (5.0-9.0)
[2024-11-22 16:29] LABS: Urine Microscopic Indicated NO
--- NOTE | 2024-11-22 17:00 | PC.NURSE ---
Harrington catheter changed and return of clear yellow urine draining.
--- NOTE | 2024-11-22 17:48 | ED_ITS ---
HPI HPI - General Adult General Chief complaint: Recheck/Abnormal Lab/Rx Stated complaint: CATHETER ISSUE Time Seen by Provider: 11/22/24 14:50 Source: patient Mode of arrival: ambulance Limitations: no limitations History of Present Illness HPI narrative: 83-year-old male to the emergency department chief complaint of Harrington catheter not functioning properly. Patient has a chronic Harrington catheter. They noticed that today there was not as much drainage as usual. There is in fact no drainage for at least the last 6 to 8 hours. He developed some mild suprapubic discomfort. There is sent to the ER via EMS for evaluation. Related Data Home Medications ?Medication ?Instructions ?Recorded ?Confirmed amlodipine 10 mg tablet 10 mg PO .QD 09/23/24 09/24/24 empagliflozin 25 mg tablet 25 mg PO .QD 09/23/24 09/24/24 (Jardiance) furosemide 40 mg tablet 40 mg PO .QD 09/23/24 09/24/24 gabapentin 300 mg capsule 300 mg PO Q12H 09/23/24 09/24/24 glimepiride 1 mg tablet 1 mg PO BIDWM 09/23/24 09/24/24 hydroxyzine HCl 25 mg tablet 25 mg PO Q8H PRN itching 09/23/24 09/24/24 lisinopril 40 mg tablet 40 mg PO .QD 09/23/24 09/24/24 metformin 1,000 mg tablet 1,000 mg PO BIDWM 09/23/24 09/24/24 pioglitazone 30 mg tablet 30 mg PO .QD 09/23/24 09/24/24 simvastatin 40 mg tablet 40 mg PO .QHS 09/23/24 09/24/24 warfarin 7.5 mg tablet 7.5 mg PO .qd@17 09/23/24 09/24/24 Allergies Allergy/AdvReac Type Severity Reaction Status Date / Time No Known Drug Allergies Allergy Verified 11/22/24 14:53 Opioid HPI Opioid Management Most Recent Opioid Data: Last Pain Scale 4 09/25/24 22:27 09/25/24 Last ORT Total Score 0 09/24/24 10:33 09/24/24 Last ORT Risk Category Low Risk 09/24/24 10:33 09/24/24 Review of Systems ROS Status of ROS 10 or more systems reviewed and unremark able except as noted in history and below [facility] Medical History (Updated 11/22/24 @ 16:34 by El Blue MD) Generalized weakness ?R53.1 - Weakness (ICD-10) Urinary tract infection ?N39.0 - Urinary tract infection, site not specified (ICD-10) COVID-19 ?U07.1 - COVID-19 (ICD-10) Social History Highest level of school completed/degree received: decline to answer Little interest or pleasure in doing things: not at all Feeling down, depressed, or hopeless: not at all Exam Narrative Exam Narrative: VITALS: I have reviewed the triage vital signs. GENERAL: Well developed, well appearing adult in no acute distress. NEURO: Alert and oriented. Moves all extremities. Face is symmetric and expressive. EYES: PERRL. No scleral icterus or conjunctival injection. No discharge. HENT: Normocephalic, atraumatic. Hearing is grossly intact. Nares grossly patent and without discharge. Mucous membranes moist. NECK: No JVD. Patient moves neck without restriction. GI/: Abdomen is soft and non-tender. Normoactive bowel sounds. Harrington catheter in place. EXTREMITIES: Symmetric muscle bulk. No joint swelling. No clubbing, cyanosis, or deformity. SKIN: Warm and dry. Normal turgor. No rash or lesions appreciated. PSYCH: Mood, affect, and interaction is appropriate to the setting. Constitutional Vital Signs, click to edit/add: Last Vital Signs Temp 97.8 F 11/22/24 14:53 Pulse 86 11/22/24 14:53 Resp 16 11/22/24 14:53 BP 162/80 H 11/22/24 14:53 Pulse Ox 95 11/22/24 14:53 O2 Del Method Room Air 11/22/24 14:53 Course Vital Signs Vital signs: Vital Signs Temperature 97.8 F 11/22/24 14:53 Pulse Rate 86 11/22/24 14:53 Respiratory Rate 16 11/22/24 14:53 Blood Pressure 162/80 H 11/22/24 14:53 Pulse Oximetry 95 11/22/24 14:53 Oxygen Delivery Method Room Air 11/22/24 14:53 Temperature 97.8 F 11/22/24 14:53 Pulse Rate 86 11/22/24 14:53 Respiratory Rate 16 11/22/24 14:53 Blood Pressure 162/80 H 11/22/24 14:53 Pulse Oximetry 95 11/22/24 14:53 Oxygen Delivery Method Room Air 11/22/24 14:53 Medical Decision Making MDM Narrative Medical decision making narrative: Harrington catheter was replaced. He had adequate urine drainage. Symptoms resolved. Family requested urine to be run, no evidence of infection. Patient was discharged home. Medical Records Medical records reviewed: Yes I reviewed the patient's medical records Lab Data Lab results reviewed: Yes I reviewed the patient's lab results Labs: Lab Results 11/22/24 Range/Units 15:50 Urine Color Yellow (YELLOW) Urine Clarity Clear (CLEAR) Urine pH 5.5 (5.0-9.0) Ur Specific Wendel 1.015 (1.005-1.025) Urine Protein Negative (NEG/TRACE) mg/dL Urine Glucose (UA) 100 A (NEGATIVE) mg/dL Urine Ketones Negative (NEGATIVE) mg/dL Urine Occult Blood Negative (NEGATIVE) Urine Nitrite Negative (NEGATIVE) Urine Bilirubin Negative (NEGATIVE) Urine Urobilinogen 0.2 (0.2-1.0) EU/dL Ur Leukocyte Esterase Negative (NEGATIVE) Discharge Plan Discharge Chief Complaint: Recheck/Abnormal Lab/Rx Clinical Impression: Complication of Harrington catheter Patient Disposition: Home, Self-Care Time of Disposition Decision: 16:33 Condition: Good Mode of Transportation: Private Vehicle Prescriptions / Home Meds: No Action furosemide 40 mg tablet 40 mg PO .QD glimepiride 1 mg tablet 1 mg PO BIDWM Rx Instructions: 1 TABLET WITH BREAKFAST AND 2 TABLETS WITH SUPPER amlodipine 10 mg tablet 10 mg PO .QD gabapentin 300 mg capsule 300 mg PO Q12H hydroxyzine HCl 25 mg tablet 25 mg PO Q8H PRN (Reason: itching) Jardiance 25 mg tablet 25 mg PO .QD warfarin 7.5 mg tablet 7.5 mg PO .qd@17 simvastatin 40 mg tablet 40 mg PO .QHS metformin 1,000 mg tablet 1,000 mg PO BIDWM pioglitazone 30 mg tablet 30 mg PO .QD lisinopril 40 mg tablet 40 mg PO .QD Print Language: Hebrew Instructions: Harrington Catheter Placement and Care (ED) Additional Instructions: Call the office of your primary care doctor to arrange for follow-up within the above-stated timeframe. Your ED visit was focused on your acute issue and does not replace primary care. You should review your labs, imaging, and diagnoses from this ED visit with your primary care physician. There may be non-emergent/ incidental findings that need further evaluation. You should review your vital signs including blood pressure with your PCP. If you were prescribed medications you should discuss possible side-effects and drug interactions with your pharmacist. Call 911 or go to the nearest Emergency Department if you develop any new or worsening symptoms. Referrals: Trice Strong NP [Primary Care Provider] - 1 week
== END 2024-11-22 18:19 | disposition home or self-care (01) ==
PROVIDERS: Emergency Provider Student in an Organized Health Care Education/Training Program; PCP Nurse Practitioner
DX: T83.098A Other mechanical complication of other urinary catheter, initial encounter (principal)
CPT/HCPCS: 81003; 99283

== ENCOUNTER 2024-12-17 02:33 | Outpatient (RCR) | payer MEDICARE, SELFPAY | END 2025-01-11 13:35 | disposition home or self-care (01) | LOC: MM 02:33 | PROVIDERS: PCP Nurse Practitioner; Visit Provider Internal Medicine | DX: Z51.81 Encounter for therapeutic drug level monitoring (principal); Z79.01 Long term (current) use of anticoagulants; I48.91 Unspecified atrial fibrillation ==

== ENCOUNTER 2025-01-13 07:43 | Outpatient (RCR) | payer MEDICARE, SELFPAY | END 2025-02-08 13:20 | disposition home or self-care (01) | LOC: MM 07:43 | PROVIDERS: PCP Nurse Practitioner; Visit Provider Internal Medicine | DX: Z51.81 Encounter for therapeutic drug level monitoring (principal); Z79.01 Long term (current) use of anticoagulants; I48.91 Unspecified atrial fibrillation ==

== ENCOUNTER 2025-02-12 05:52 | Outpatient (RCR) | payer MEDICARE, SELFPAY | END 2025-03-13 16:18 | disposition home or self-care (01) | LOC: MM 05:52 | PROVIDERS: PCP Nurse Practitioner; Visit Provider Internal Medicine | DX: Z51.81 Encounter for therapeutic drug level monitoring (principal); Z79.01 Long term (current) use of anticoagulants; I48.91 Unspecified atrial fibrillation ==

== ENCOUNTER 2025-03-14 04:36 | Outpatient (RCR) | payer MEDICARE, SELFPAY | END 2025-04-12 15:24 | disposition home or self-care (01) | LOC: MM 04:36 | PROVIDERS: PCP Nurse Practitioner; Visit Provider Internal Medicine | DX: Z51.81 Encounter for therapeutic drug level monitoring (principal); Z79.01 Long term (current) use of anticoagulants; I48.91 Unspecified atrial fibrillation ==

== ENCOUNTER 2025-04-14 08:09 | Outpatient (RCR) | payer MEDICARE, SELFPAY | END 2025-05-09 14:57 | disposition home or self-care (01) | LOC: MM 08:09 | PROVIDERS: PCP Nurse Practitioner; Visit Provider Internal Medicine | DX: Z51.81 Encounter for therapeutic drug level monitoring (principal); Z79.01 Long term (current) use of anticoagulants; I48.91 Unspecified atrial fibrillation ==

== ENCOUNTER 2025-05-14 02:47 | Outpatient (RCR) | payer MEDICARE, SELFPAY | END 2025-06-13 16:41 | disposition home or self-care (01) | LOC: MM 02:47 | PROVIDERS: PCP Nurse Practitioner; Visit Provider Internal Medicine | DX: Z51.81 Encounter for therapeutic drug level monitoring (principal); Z79.01 Long term (current) use of anticoagulants; I48.91 Unspecified atrial fibrillation ==

== ENCOUNTER 2025-06-14 02:34 | Outpatient (RCR) | payer MEDICARE, SELFPAY | END 2025-07-11 12:58 | disposition home or self-care (01) | LOC: MM 02:34 | PROVIDERS: PCP Nurse Practitioner; Visit Provider Internal Medicine | DX: Z51.81 Encounter for therapeutic drug level monitoring (principal); Z79.01 Long term (current) use of anticoagulants; I48.91 Unspecified atrial fibrillation ==

== ENCOUNTER 2025-07-15 01:45 | Outpatient (RCR) | payer MEDICARE, SELFPAY | END 2025-08-13 15:42 | disposition home or self-care (01) | LOC: MM 01:45 | PROVIDERS: PCP Nurse Practitioner; Visit Provider Internal Medicine | DX: Z51.81 Encounter for therapeutic drug level monitoring (principal); Z79.01 Long term (current) use of anticoagulants; I48.91 Unspecified atrial fibrillation ==

== ENCOUNTER 2025-08-14 04:27 | Outpatient (RCR) | payer MEDICARE, SELFPAY | END 2025-09-13 23:59 | disposition home or self-care (01) | LOC: MM 04:27 | PROVIDERS: PCP Nurse Practitioner; Visit Provider Internal Medicine | DX: Z51.81 Encounter for therapeutic drug level monitoring (principal); Z79.01 Long term (current) use of anticoagulants; I48.91 Unspecified atrial fibrillation ==

== ENCOUNTER 2025-09-14 | Outpatient (RCR) | payer MEDICARE, SELFPAY | END 2025-10-13 23:59 | disposition home or self-care (01) | LOC: MM | PROVIDERS: PCP Nurse Practitioner; Visit Provider Internal Medicine | DX: Z51.81 Encounter for therapeutic drug level monitoring (principal); Z79.01 Long term (current) use of anticoagulants; I48.91 Unspecified atrial fibrillation ==

== ENCOUNTER 2025-10-14 11:03 | Outpatient (RCR) | payer MEDICARE, SELFPAY | END 2025-11-13 12:46 | disposition home or self-care (01) | LOC: MM 11:03 | PROVIDERS: PCP Nurse Practitioner; Visit Provider Internal Medicine | DX: Z51.81 Encounter for therapeutic drug level monitoring (principal); Z79.01 Long term (current) use of anticoagulants; I48.91 Unspecified atrial fibrillation ==